=== PATIENT | male | born 1955 | race Caucasian/White ===

== ENCOUNTER 2019-12-27 15:26 | Outpatient (REF) | payer MEDICARE, MEDICAID, SELFPAY ==
--- NOTE | 2019-12-27 16:56 | XR_ITS ---
EXAMINATION: XR HAND, LEFT XR HAND, RIGHT CLINICAL INFORMATION: Gout COMPARISON: None TECHNIQUE: 3 views of each hand FINDINGS: Left hand: No fracture or dislocation. There are severe degenerative changes at the first carpometacarpal joint with flattening of the trapezium. There is joint space narrowing with prominent osteophyte formation. Radial subluxation of the first metacarpal in relation to the trapezium. Remaining joint spaces are maintained. Soft tissue swelling is seen at the second digit. No erosions. Right hand: No fracture or dislocation. Severe degenerative changes of the first carpometacarpal joint with joint space narrowing and prominent osteophytes. Mild radial subluxation of the first metacarpal in relation to the trapezium. Remaining joint spaces are maintained. Vascular calcifications. Soft tissue swelling in the hand which is greatest at the second digit. No erosions. IMPRESSION: Severe degenerative changes of both hands at the first carpometacarpal joints. Bilateral soft tissue swelling which is greatest at the second digit of both hands.
--- NOTE | 2019-12-27 16:56 | XR_ITS ---
EXAMINATION: XR KNEE, LEFT XR KNEE, RIGHT CLINICAL INFORMATION: Idiopathic chronic gout COMPARISON: None TECHNIQUE: 4 views of each knee FINDINGS: Left knee: No fracture or subluxation. There is mild narrowing of the patellofemoral compartment. Medial and lateral compartment joint spaces are maintained. Mild tricompartmental marginal osteophytes, greatest at the patellofemoral compartment with small joint effusion. Chondrocalcinosis noted. Scattered vascular calcification. Right knee: No fracture or subluxation. There is severe lateral compartment joint space narrowing. Tricompartmental marginal osteophytes are noted. Scattered vascular calcifications. Small joint effusion. IMPRESSION: Arthritic changes of both knees. In the left knee, degenerative changes are greatest at the patellofemoral compartment. In the right knee, arthritic changes are greatest at the lateral compartment. Small joint effusions.
[2019-12-27 18:02] LABS: MANUAL DIFF FLAG NO
[2019-12-27 18:12] LABS: Basophils Absolute Auto 0.1 X10*3/uL (0.0-0.2); Basophils Percent Auto 0.9 % (0-2); Eosinophils Absolute Auto 0.3 X10*3/uL (0.0-0.4); Eosinophils Percent Auto 4.4 % (0-4); Hematocrit 42.1 % (42-52); Hemoglobin 13.1 g/dl (14.0-18.0); Imm Gran Abs Auto 0.02 X10*3/uL (0.00-0.03); Imm Gran Pct Auto 0.3 % (0.0-0.4); Lymphocytes Absolute Auto 1.3 X10*3/uL (1.2-4.9); Lymphocytes Percent Auto 18.4 % (20-40); Mean Corpuscular HGB Conc 31.1 g/dl (31.0-36.0); Mean Corpuscular Volume 80.5 fL (80-98); Mean Platelet Volume 11.1 fL (9.4-12.4); Monocytes Absolute Auto 0.9 X10*3/uL (0.1-1.2); Monocytes Percent Auto 12.8 % (2-11); Neutrophils Absolute Auto 4.3 X10*3/uL (2.0-8.3); Neutrophils Percent Auto 63.2 % (45-73); Platelet Count 170 X10*3/uL (160-400); Red Blood Count 5.23 X10*6/uL (4.60-5.80); White Blood Count 6.8 X10*3/uL (4.8-10.8)
[2019-12-27 18:58] LABS: Alanine Aminotransferase 20 U/L (0-40); Albumin Level 4.1 g/dL (3.5-5.0); Alkaline Phosphatase 62 U/L (39-117); Anion Gap 15 (12-20); Aspartate Amino Transferase 22 U/L (5-37); Bilirubin Total 0.7 mg/dL (0.0-1.0); Blood Urea Nitrogen 25 mg/dL (9-16); Calcium 8.9 mg/dL (8.4-10.2); Carbon Dioxide 28 mmol/L (22-29); Chloride 104 mmol/L (96-108); Estimated Glomerular Filt Rate 57; Glucose Random 66 mg/dL (60-115); Rheumatoid Factor < 15.0 IU/mL (<15.0); Sodium 143 mmol/L (135-145); Total Protein 6.9 g/dL (6.5-8.0)
[2019-12-27 18:59] LABS: Uric Acid 11.1 mg/dL (3.4-7.0)
[2019-12-27 19:18] LABS: Erythrocyte Sedimentation Rate 19 MM/HR (0-15)
[2019-12-29 11:22] LABS: Cyclic Citrullinated Peptide <16 UNITS
== END 2019-12-27 15:27 | disposition home or self-care (01) ==
LOC: HO.LAB 15:26
PROVIDERS: PCP Internal Medicine; Visit Provider Student in an Organized Health Care Education/Training Program
DX: M1A.09X1 Idiopathic chronic gout, multiple sites, with tophus (tophi) (principal); M17.0 Bilateral primary osteoarthritis of knee
CPT/HCPCS: 36415; 73130; 73562; 80053; 84550; 85025; 85652; 86140; 86200; 86431; 99204

== ENCOUNTER → 2020-01-04 11:22 | Outpatient (BNVA) | payer MEDICARE, MEDICAID, SELFPAY | PROVIDERS: PCP Internal Medicine; Visit Provider Internal Medicine | DX: I48.20 Chronic atrial fibrillation, unspecified (principal); Z51.81 Encounter for therapeutic drug level monitoring; Z79.01 Long term (current) use of anticoagulants | CPT/HCPCS: 85610; 99211 ==

== ENCOUNTER → 2020-01-18 11:29 | Outpatient (BNVA) | payer MEDICARE, MEDICAID, SELFPAY | PROVIDERS: PCP Internal Medicine; Visit Provider Internal Medicine | DX: I48.20 Chronic atrial fibrillation, unspecified (principal); Z51.81 Encounter for therapeutic drug level monitoring; Z79.01 Long term (current) use of anticoagulants | CPT/HCPCS: 85610; 99211 ==

== ENCOUNTER → 2020-02-06 10:51 | Outpatient (BNVA) | payer MEDICARE, MEDICAID, SELFPAY | PROVIDERS: Visit Provider Orthopaedic Surgery | DX: M17.0 Bilateral primary osteoarthritis of knee (principal) | CPT/HCPCS: 99202 ==

== ENCOUNTER → 2020-02-15 10:59 | Outpatient (BNVA) | payer MEDICARE, MEDICAID, SELFPAY | PROVIDERS: PCP Internal Medicine; Visit Provider Internal Medicine | DX: I48.20 Chronic atrial fibrillation, unspecified (principal); Z51.81 Encounter for therapeutic drug level monitoring; Z79.01 Long term (current) use of anticoagulants | CPT/HCPCS: 85610; 99211 ==

== ENCOUNTER → 2020-02-20 11:23 | Outpatient (BNVA) | payer MEDICARE, MEDICAID, SELFPAY | PROVIDERS: PCP Internal Medicine; Visit Provider Internal Medicine | DX: J45.909 Unspecified asthma, uncomplicated (principal); G47.33 Obstructive sleep apnea (adult) (pediatric); G89.4 Chronic pain syndrome; E66.9 Obesity, unspecified; Z68.41 Body mass index [BMI] 40.0-44.9, adult; Z79.51 Long term (current) use of inhaled steroids | CPT/HCPCS: 99212 ==

== ENCOUNTER → 2020-02-29 10:53 | Outpatient (BNVA) | payer MEDICARE, MEDICAID, SELFPAY | PROVIDERS: PCP Internal Medicine; Visit Provider Internal Medicine | DX: Z79.01 Long term (current) use of anticoagulants (principal) | CPT/HCPCS: 85610; 99211 ==

== ENCOUNTER 2020-03-18 13:08 | Outpatient (RCR) | payer MEDICARE, MEDICAID, SELFPAY | END 2020-04-11 15:20 | disposition home or self-care (01) | LOC: HO.WCC 13:08 | PROVIDERS: Visit Provider Physician Assistant | DX: E11.622 Type 2 diabetes mellitus with other skin ulcer (principal); I87.331 Chronic venous hypertension (idiopathic) with ulcer and inflammation of right lower extremity; E11.51 Type 2 diabetes mellitus with diabetic peripheral angiopathy without gangrene; L97.812 Non-pressure chronic ulcer of other part of right lower leg with fat layer exposed; E11.40 Type 2 diabetes mellitus with diabetic neuropathy, unspecified; E11.65 Type 2 diabetes mellitus with hyperglycemia; I48.91 Unspecified atrial fibrillation; M54.9 Dorsalgia, unspecified; G89.29 Other chronic pain; I11.0 Hypertensive heart disease with heart failure; I50.9 Heart failure, unspecified; I25.2 Old myocardial infarction; E66.09 Other obesity due to excess calories; Z79.01 Long term (current) use of anticoagulants; Z79.84 Long term (current) use of oral hypoglycemic drugs; Z79.899 Other long term (current) drug therapy | CPT/HCPCS: 11042; 99212; 99214 ==

== ENCOUNTER → 2020-03-19 10:36 | Outpatient (BNVA) | payer MEDICARE, MEDICAID, SELFPAY | PROVIDERS: PCP Internal Medicine; Visit Provider Student in an Organized Health Care Education/Training Program | DX: Z13.89 Encounter for screening for other disorder (principal) | CPT/HCPCS: Q3014 ==

== ENCOUNTER → 2020-03-21 11:07 | Outpatient (BNVA) | payer MEDICARE, MEDICAID, SELFPAY | PROVIDERS: PCP Internal Medicine; Visit Provider Internal Medicine | DX: I48.20 Chronic atrial fibrillation, unspecified (principal); Z79.01 Long term (current) use of anticoagulants; Z51.81 Encounter for therapeutic drug level monitoring | CPT/HCPCS: 85610; 99211 ==

== ENCOUNTER → 2020-04-11 11:29 | Outpatient (BNVA) | payer MEDICARE, MEDICAID, SELFPAY | PROVIDERS: PCP Internal Medicine; Visit Provider Internal Medicine | DX: I48.20 Chronic atrial fibrillation, unspecified (principal); Z51.81 Encounter for therapeutic drug level monitoring; Z79.01 Long term (current) use of anticoagulants | CPT/HCPCS: 85610; 99211 ==

== ENCOUNTER → 2020-05-02 11:06 | Outpatient (BNVA) | payer MEDICARE, MEDICAID, SELFPAY | PROVIDERS: PCP Internal Medicine; Visit Provider Internal Medicine | DX: I48.20 Chronic atrial fibrillation, unspecified (principal); Z51.81 Encounter for therapeutic drug level monitoring; Z79.01 Long term (current) use of anticoagulants | CPT/HCPCS: 85610; 99211 ==

== ENCOUNTER → 2020-05-30 11:55 | Outpatient (BNVA) | payer MEDICARE, MEDICAID, SELFPAY | PROVIDERS: PCP Internal Medicine; Visit Provider Internal Medicine | DX: I48.20 Chronic atrial fibrillation, unspecified (principal); Z51.81 Encounter for therapeutic drug level monitoring; Z79.01 Long term (current) use of anticoagulants | CPT/HCPCS: 85610; 99211 ==

== ENCOUNTER → 2020-06-19 11:43 | Outpatient (BNVA) | payer MEDICARE, MEDICAID, SELFPAY | PROVIDERS: PCP Internal Medicine; Visit Provider Internal Medicine | DX: J45.909 Unspecified asthma, uncomplicated (principal); G47.33 Obstructive sleep apnea (adult) (pediatric); E66.9 Obesity, unspecified; Z68.41 Body mass index [BMI] 40.0-44.9, adult; Z79.899 Other long term (current) drug therapy; Z79.51 Long term (current) use of inhaled steroids | CPT/HCPCS: 99212 ==

== ENCOUNTER → 2020-06-27 11:33 | Outpatient (BNVA) | payer MEDICARE, MEDICAID, SELFPAY | PROVIDERS: PCP Internal Medicine; Visit Provider Internal Medicine | DX: I48.20 Chronic atrial fibrillation, unspecified (principal); Z79.01 Long term (current) use of anticoagulants; Z51.81 Encounter for therapeutic drug level monitoring | CPT/HCPCS: 85610; 99211 ==

== ENCOUNTER → 2020-07-18 11:32 | Outpatient (BNVA) | payer MEDICARE, MEDICAID, SELFPAY | PROVIDERS: PCP Internal Medicine; Visit Provider Internal Medicine | DX: I48.20 Chronic atrial fibrillation, unspecified (principal); Z79.01 Long term (current) use of anticoagulants; Z51.81 Encounter for therapeutic drug level monitoring | CPT/HCPCS: 85610; 99211 ==

== ENCOUNTER → 2020-08-06 13:55 | Outpatient (BNVA) | payer MEDICARE, MEDICAID, SELFPAY | PROVIDERS: PCP Internal Medicine; Referring Provider Internal Medicine; Visit Provider Internal Medicine Cardiovascular Disease | DX: Z45.018 Encounter for adjustment and management of other part of cardiac pacemaker (principal); M1A.00X0 Idiopathic chronic gout, unspecified site, without tophus (tophi); I50.32 Chronic diastolic (congestive) heart failure; I48.91 Unspecified atrial fibrillation | CPT/HCPCS: 99212 ==

== ENCOUNTER → 2020-08-08 11:35 | Outpatient (BNVA) | payer MEDICARE, MEDICAID, SELFPAY | PROVIDERS: PCP Internal Medicine; Visit Provider Internal Medicine | DX: I48.20 Chronic atrial fibrillation, unspecified (principal); Z51.81 Encounter for therapeutic drug level monitoring; Z79.01 Long term (current) use of anticoagulants | CPT/HCPCS: 85610; 99211 ==

== ENCOUNTER 2020-08-14 15:34 | Outpatient (REF) | payer MEDICARE, MEDICAID, SELFPAY ==
[2020-08-14 17:22] LABS: Alanine Aminotransferase 21 U/L (0-40); Albumin Level 4.2 g/dL (3.5-5.0); Alkaline Phosphatase 67 U/L (39-117); Anion Gap 15 (12-20); Aspartate Amino Transferase 18 U/L (5-37); Bilirubin Total 0.8 mg/dL (0.0-1.0); Blood Urea Nitrogen 25 mg/dL (9-16); Calcium 9.7 mg/dL (8.4-10.2); Carbon Dioxide 28 mmol/L (22-29); Chloride 102 mmol/L (96-108); Estimated Glomerular Filt Rate 57; Glucose Random 113 mg/dL (60-115); Potassium 3.8 mmol/L (3.3-5.1); Sodium 141 mmol/L (135-145); Total Protein 7.1 g/dL (6.5-8.0); Uric Acid 9.2 mg/dL (3.4-7.0)
== END 2020-08-14 15:35 | disposition home or self-care (01) ==
LOC: HO.LAB 15:34
PROVIDERS: PCP Internal Medicine; Visit Provider Student in an Organized Health Care Education/Training Program
DX: M1A.09X1 Idiopathic chronic gout, multiple sites, with tophus (tophi) (principal)
CPT/HCPCS: 36415; 80053; 84550; 99212

== ENCOUNTER 2020-08-15 12:44 | Outpatient (RCR) | payer MEDICARE, MEDICAID, SELFPAY | END 2020-09-04 13:23 | disposition home or self-care (01) | LOC: HO.WCC 12:44 | PROVIDERS: Visit Provider Surgery | DX: E11.622 Type 2 diabetes mellitus with other skin ulcer (principal); L97.812 Non-pressure chronic ulcer of other part of right lower leg with fat layer exposed; I87.331 Chronic venous hypertension (idiopathic) with ulcer and inflammation of right lower extremity; E11.65 Type 2 diabetes mellitus with hyperglycemia; E11.40 Type 2 diabetes mellitus with diabetic neuropathy, unspecified; E11.51 Type 2 diabetes mellitus with diabetic peripheral angiopathy without gangrene; I10 Essential (primary) hypertension; F12.90 Cannabis use, unspecified, uncomplicated; I48.91 Unspecified atrial fibrillation; I25.2 Old myocardial infarction; Z79.84 Long term (current) use of oral hypoglycemic drugs; Z79.01 Long term (current) use of anticoagulants; Z79.899 Other long term (current) drug therapy | CPT/HCPCS: 29581; 99212 ==

== ENCOUNTER → 2020-08-22 11:26 | Outpatient (BNVA) | payer MEDICARE, MEDICAID, SELFPAY | PROVIDERS: PCP Internal Medicine; Visit Provider Internal Medicine | DX: I48.20 Chronic atrial fibrillation, unspecified (principal); Z51.81 Encounter for therapeutic drug level monitoring; Z79.01 Long term (current) use of anticoagulants | CPT/HCPCS: 85610; 99211 ==

== ENCOUNTER → 2020-09-05 11:30 | Outpatient (BNVA) | payer MEDICARE, MEDICAID, SELFPAY | PROVIDERS: PCP Internal Medicine; Visit Provider Internal Medicine | DX: I48.20 Chronic atrial fibrillation, unspecified (principal); Z51.81 Encounter for therapeutic drug level monitoring; Z79.01 Long term (current) use of anticoagulants | CPT/HCPCS: 85610; 99211 ==

== ENCOUNTER → 2020-09-26 11:30 | Outpatient (BNVA) | payer MEDICARE, MEDICAID, SELFPAY | PROVIDERS: PCP Internal Medicine; Visit Provider Internal Medicine | DX: I48.20 Chronic atrial fibrillation, unspecified (principal); Z51.81 Encounter for therapeutic drug level monitoring; Z79.01 Long term (current) use of anticoagulants | CPT/HCPCS: 85610; 99211 ==

== ENCOUNTER → 2020-10-17 10:45 | Outpatient (BNVA) | payer MEDICARE, MEDICAID, SELFPAY | PROVIDERS: PCP Internal Medicine; Visit Provider Internal Medicine | DX: I48.20 Chronic atrial fibrillation, unspecified (principal); Z51.81 Encounter for therapeutic drug level monitoring; Z79.01 Long term (current) use of anticoagulants | CPT/HCPCS: 85610; 99211 ==

== ENCOUNTER 2020-11-07 11:25 | Outpatient (REF) | payer MEDICARE, MEDICAID, SELFPAY ==
[2020-11-07 14:01] LABS: Prostate Specific Antigen 1.05 ng/mL (<0.05-4.0)
== END 2020-11-07 11:26 | disposition home or self-care (01) ==
LOC: HO.LAB 11:25
PROVIDERS: Nurse Practitioner Family; PCP Internal Medicine; Visit Provider Internal Medicine
DX: I48.20 Chronic atrial fibrillation, unspecified (principal); Z51.81 Encounter for therapeutic drug level monitoring; Z79.01 Long term (current) use of anticoagulants; Z12.5 Encounter for screening for malignant neoplasm of prostate
CPT/HCPCS: 36415; 84153; 85610; 99211

== ENCOUNTER 2020-11-12 15:32 | Outpatient (REF) | payer MEDICARE, MEDICAID, SELFPAY ==
[2020-11-12 16:43] LABS: Alanine Aminotransferase 17 U/L (0-40); Albumin Level 4.1 g/dL (3.5-5.0); Alkaline Phosphatase 74 U/L (39-117); Anion Gap 16 (12-20); Aspartate Amino Transferase 22 U/L (5-37); Bilirubin Total 0.8 mg/dL (0.0-1.0); Blood Urea Nitrogen 17 mg/dL (9-16); Calcium 8.8 mg/dL (8.4-10.2); Carbon Dioxide 25 mmol/L (22-29); Chloride 103 mmol/L (96-108); Estimated Glomerular Filt Rate 59; Glucose Random 190 mg/dL (60-115); Potassium 3.9 mmol/L (3.3-5.1); Sodium 140 mmol/L (135-145)
[2020-11-12 17:03] LABS: Uric Acid 9.2 mg/dL (3.4-7.0)
== END 2020-11-12 15:33 | disposition home or self-care (01) ==
LOC: HO.LAB 15:32
PROVIDERS: PCP Internal Medicine; Visit Provider Student in an Organized Health Care Education/Training Program
DX: M1A.00X0 Idiopathic chronic gout, unspecified site, without tophus (tophi) (principal)
CPT/HCPCS: 36415; 80053; 84550

== ENCOUNTER → 2020-11-13 11:35 | Outpatient (BNVA) | payer MEDICARE, MEDICAID, SELFPAY | PROVIDERS: Visit Provider Student in an Organized Health Care Education/Training Program | CPT/HCPCS: Q3014 ==

== ENCOUNTER → 2020-11-28 11:32 | Outpatient (BNVA) | payer MEDICARE, MEDICAID, SELFPAY | PROVIDERS: PCP Internal Medicine; Visit Provider Internal Medicine | DX: I48.20 Chronic atrial fibrillation, unspecified (principal); Z51.81 Encounter for therapeutic drug level monitoring; Z79.01 Long term (current) use of anticoagulants | CPT/HCPCS: 85610; 99211 ==

== ENCOUNTER 2020-12-19 11:29 | Outpatient (REF) | payer MEDICARE, MEDICAID, SELFPAY ==
[2020-12-19 12:43] LABS: Estimated Average Glucose 154 mg/dL
[2020-12-19 13:09] LABS: Glucose Fasting 112 mg/dL (60-99)
[2020-12-19 13:19] LABS: Alanine Aminotransferase 18 U/L (0-40); Albumin Level 4.1 g/dL (3.5-5.0); Alkaline Phosphatase 68 U/L (39-117); Anion Gap 14 (12-20); Aspartate Amino Transferase 23 U/L (5-37); Bilirubin Total 0.2 mg/dL (0.0-1.0); Blood Urea Nitrogen 16 mg/dL (9-16); Calcium 8.8 mg/dL (8.4-10.2); Carbon Dioxide 26 mmol/L (22-29); Chloride 106 mmol/L (96-108); Cholesterol 277 mg/dL; Estimated Glomerular Filt Rate 59; Glucose Random 113 mg/dL (60-115); HDL Cholesterol 32 mg/dL; LDL Cholesterol Calculated 191 mg/dl; Potassium 4.2 mmol/L (3.3-5.1); Sodium 142 mmol/L (135-145); Triglycerides 274 mg/dL
[2020-12-19 13:39] LABS: Vitamin D 25-OH Total 24.1 ng/mL (>30)
[2020-12-19 14:10] LABS: Uric Acid 9.4 mg/dL (3.4-7.0)
== END 2020-12-19 11:30 | disposition home or self-care (01) ==
LOC: HO.LAB 11:29
PROVIDERS: Student in an Organized Health Care Education/Training Program; Absent Provider Nurse Practitioner Family; PCP Internal Medicine; Visit Provider Internal Medicine
DX: E66.9 Obesity, unspecified (principal); R53.82 Chronic fatigue, unspecified; E78.00 Pure hypercholesterolemia, unspecified; E11.9 Type 2 diabetes mellitus without complications; M1A.09X1 Idiopathic chronic gout, multiple sites, with tophus (tophi); J45.909 Unspecified asthma, uncomplicated; G47.33 Obstructive sleep apnea (adult) (pediatric); Z79.899 Other long term (current) drug therapy; Z99.89 Dependence on other enabling machines and devices
CPT/HCPCS: 36415; 80053; 80061; 82043; 82306; 82947; 83036; 84550; 99212

== ENCOUNTER → 2020-12-26 11:22 | Outpatient (BNVA) | payer MEDICARE, MEDICAID, SELFPAY | PROVIDERS: PCP Internal Medicine; Visit Provider Internal Medicine | DX: I48.20 Chronic atrial fibrillation, unspecified (principal); Z51.81 Encounter for therapeutic drug level monitoring; Z79.01 Long term (current) use of anticoagulants | CPT/HCPCS: 85610; 99211 ==

== ENCOUNTER → 2021-01-13 13:45 | Outpatient (REF) | payer MEDICARE, MEDICAID, SELFPAY ==
--- NOTE | 2021-01-13 13:49 | CA_ITS ---
Transthoracic Echocardiogram Patient (Last, First, Middle): Tony Brian S Gender: Male Date of : 1955 Age: 65 Procedure Date: 01/13/2021 Procedure Type: Transthoracic Echocardiogram Location: OP Height: 177.8 cm Weight: 131.54 kg BSA: 2.44 m2 Heart Rate: bpm BP: 130 / 90 mmHg Hand Drawer In Helper: ALEX Referring MD: Benjamin Downing MD Turf Manager: Benjamin Dwoning MD Symptoms: I50.32 - Chronic diastolic (congestive) heart failure Study Quality: Fair/Contrast ECG Rhythm: Atrial Fibrillation Conclusions: - 1. Low normal LV systolic function with mild LVH with LVEF of 50-55% 2. Severely dilated left atrium 3. [id number] mitral regurgitation 4. Mildly elevated right ventricular systolic pressure 5. No gross pericardial effusion Findings Procedure Information Contrast agent, definity, is being given per protocol without apparent complications. Left Ventricle Normal left ventricular cavity size. There is mildly increased left ventricular wall thickness. The left ventricular systolic function is low normal. The visually estimated ejection fraction is between 50-55%. Diastolic function is indeterminate on the basis of available data. Right Ventricle Mildly increased right ventricular cavity size. There is mildly decreased right ventricular systolic function. There is a pacemaker wire seen in the right ventricle. Atria The left atrium is severely dilated. Interatrial shunt cannot be excluded. The right atrium is mildly dilated. Aortic Valve The aortic valve structure and function is likely normal. There is no aortic valve stenosis. There is no aortic valve regurgitation. Mitral Valve There is mild anterior mitral leaflet thickening. There is mild mitral annular calcification. There is mild to moderate mitral valve regurgitation. There is no mitral valve stenosis. Pulmonic Valve The pulmonic valve was not well visualized. Tricuspid Valve Likely normal tricuspid valve structure and function. There is mild tricuspid valve regurgitation. The right ventricular systolic pressure is 42 mmHg. Mild pulmonary hypertension is present. Great Vessels All visible segments of the aorta are normal in size. The pulmonary artery was not well visualized. Venous The inferior vena cava was not well visualized. Pericardium/Pleural There is no evidence of pericardial effusion. Prior Study Comparison No significant change compared to prior study dated: 05/29/2019. Measurements 2D Linear Measurements IVSd: 1.31 0.6-0.9/0.6-1.0 cm LVIDd: 4.66 3.9-5.3/4.2-5.9 cm LVIDd Index: 1.91 2.4-3.2/2.2-3.1 cm/m2 LVIDs: 3.66 2.0-3.6 cm LVPWd: 1.03 0.7-1.1 cm Ao Root: 3.30 2.1-3.5 cm LA Diam: 5.70 2.7-3.8/3.0-4.0 cm LAIDs Index: 2.34 1.5-2.3 cm/m2 LV Mass: 251.48 67-162/88-224 g LV Mass Index: 103.06 43-95/49-115 g/m2 LVOT Diam: 2.10 3.0+(-)1.3 cm 2D Systolic Function EF 4C: 49.00 >55% EF 2C: 45.90 >55% EF BiP: 46.40 >55% Aortic Valve AoV Pk James: 1.31 AoV Mn James: 0.93 AoV VTI: 0.27 AoV Pk Grad: 7.00 Aov Mn Grad: 4.00 AMADOR Cont.VTI: 1.81 LVOT LVOT Pk James: 0.67 LVOT Mn James: 0.49 LVOT VTI: 0.14 LVOT Pk Grad: 2.00 LVOT Mn Grad: 1.00 LVOT Diam: 2.10 LVOT Area: 3.46 Right Ventricle TAPSE (mm): 1.46 Tricuspid Valve TR Pk James: 3.12 TR Pk Grad: 39.00 RA Press: 3.00 RVSP: 42.00 Great Vessels Aorta Ao Root-2D: 3.30 2.0-3.7 cm Ao Asc: 3.40 2.1-3.4 cm Ao Arch: 2.90 Updated in Other Vendor System with Status of Final Benjamin Downing MD electronically signed on 01/14/2021 3:59:14 PM with status of Final
== END ==
LOC: HO.CARD 13:45
PROVIDERS: Visit Provider Internal Medicine Cardiovascular Disease
DX: I50.32 Chronic diastolic (congestive) heart failure (principal)
CPT/HCPCS: 93306; Q9957

== ENCOUNTER 2021-01-20 10:37 | Outpatient (REF) | payer MEDICARE, MEDICAID, SELFPAY ==
[2021-01-20 12:52] LABS: Alanine Aminotransferase 17 U/L (0-40); Albumin Level 3.9 g/dL (3.5-5.0); Alkaline Phosphatase 65 U/L (39-117); Anion Gap 17 (12-20); Aspartate Amino Transferase 19 U/L (5-37); Bilirubin Total 1.1 mg/dL (0.0-1.0); Blood Urea Nitrogen 21 mg/dL (9-16); Calcium 8.7 mg/dL (8.4-10.2); Carbon Dioxide 26 mmol/L (22-29); Chloride 104 mmol/L (96-108); Estimated Glomerular Filt Rate 59; Glucose Random 129 mg/dL (60-115); Potassium 3.5 mmol/L (3.3-5.1); Sodium 143 mmol/L (135-145); Total Protein 6.9 g/dL (6.5-8.0)
== END 2021-01-20 10:38 | disposition home or self-care (01) ==
LOC: HO.LAB 10:37
PROVIDERS: PCP Internal Medicine; Visit Provider Nurse Practitioner Family
DX: M1A.09X1 Idiopathic chronic gout, multiple sites, with tophus (tophi) (principal); Z79.899 Other long term (current) drug therapy
CPT/HCPCS: 36415; 80053; 84550; 99212

== ENCOUNTER → 2021-01-30 11:05 | Outpatient (BNVA) | payer MEDICARE, MEDICAID, SELFPAY | PROVIDERS: PCP Internal Medicine; Visit Provider Internal Medicine | DX: I48.20 Chronic atrial fibrillation, unspecified (principal); Z51.81 Encounter for therapeutic drug level monitoring; Z79.01 Long term (current) use of anticoagulants | CPT/HCPCS: 85610; 99211 ==

== ENCOUNTER → 2021-02-04 12:43 | Outpatient (BNVA) | payer MEDICARE, MEDICAID, SELFPAY | PROVIDERS: PCP Internal Medicine; Referring Provider Internal Medicine; Visit Provider Internal Medicine Cardiovascular Disease | DX: Z45.018 Encounter for adjustment and management of other part of cardiac pacemaker (principal); I50.32 Chronic diastolic (congestive) heart failure; I48.91 Unspecified atrial fibrillation | CPT/HCPCS: 93005; 99212 ==

== ENCOUNTER → 2021-02-14 11:43 | Outpatient (BNVA) | payer MEDICARE, MEDICAID, SELFPAY | PROVIDERS: PCP Internal Medicine; Visit Provider Internal Medicine | DX: I48.20 Chronic atrial fibrillation, unspecified (principal); Z51.81 Encounter for therapeutic drug level monitoring; Z79.01 Long term (current) use of anticoagulants | CPT/HCPCS: 85610; 99211 ==

== ENCOUNTER → 2021-02-27 11:24 | Outpatient (BNVA) | payer MEDICARE, MEDICAID, SELFPAY | PROVIDERS: PCP Internal Medicine; Visit Provider Internal Medicine | DX: I48.20 Chronic atrial fibrillation, unspecified (principal); Z51.81 Encounter for therapeutic drug level monitoring; Z79.01 Long term (current) use of anticoagulants | CPT/HCPCS: 85610; 99211 ==

== ENCOUNTER → 2021-03-20 11:27 | Outpatient (BNVA) | payer MEDICARE, MEDICAID, SELFPAY | PROVIDERS: PCP Internal Medicine; Visit Provider Internal Medicine | DX: I48.20 Chronic atrial fibrillation, unspecified (principal); Z51.81 Encounter for therapeutic drug level monitoring; Z79.01 Long term (current) use of anticoagulants | CPT/HCPCS: 85610; 99211 ==

== ENCOUNTER 2021-04-09 11:09 | Outpatient (REF) | payer MEDICARE, MEDICAID, SELFPAY ==
[2021-04-09 13:07] LABS: Alanine Aminotransferase 14 U/L (0-40); Albumin Level 3.9 g/dL (3.5-5.0); Alkaline Phosphatase 59 U/L (39-117); Anion Gap 14 (12-20); Aspartate Amino Transferase 19 U/L (5-37); Bilirubin Total 0.7 mg/dL (0.0-1.0); Blood Urea Nitrogen 18 mg/dL (9-16); Carbon Dioxide 27 mmol/L (22-29); Chloride 103 mmol/L (96-108); Estimated Glomerular Filt Rate 55; Glucose Random 221 mg/dL (60-115); Potassium 3.7 mmol/L (3.3-5.1); Sodium 140 mmol/L (135-145); Total Protein 6.8 g/dL (6.5-8.0)
== END 2021-04-09 11:10 | disposition home or self-care (01) ==
LOC: HO.LAB 11:09
PROVIDERS: PCP Internal Medicine; Visit Provider Nurse Practitioner Family
DX: I48.20 Chronic atrial fibrillation, unspecified (principal); M1A.09X1 Idiopathic chronic gout, multiple sites, with tophus (tophi); Z51.81 Encounter for therapeutic drug level monitoring; Z79.01 Long term (current) use of anticoagulants
CPT/HCPCS: 36415; 80053; 84550; 85610; 99211; 99212

== ENCOUNTER 2021-05-01 11:10 | Outpatient (REF) | payer MEDICARE, MEDICAID, SELFPAY ==
[2021-05-01 12:25] LABS: Alanine Aminotransferase 17 U/L (0-40); Albumin Level 3.8 g/dL (3.5-5.0); Alkaline Phosphatase 68 U/L (39-117); Anion Gap 14 (12-20); Aspartate Amino Transferase 19 U/L (5-37); Bilirubin Total 0.7 mg/dL (0.0-1.0); Blood Urea Nitrogen 14 mg/dL (9-16); Calcium 8.8 mg/dL (8.4-10.2); Carbon Dioxide 27 mmol/L (22-29); Chloride 102 mmol/L (96-108); Estimated Glomerular Filt Rate 58; Glucose Random 144 mg/dL (60-115); Potassium 3.7 mmol/L (3.3-5.1); Sodium 139 mmol/L (135-145); Total Protein 6.6 g/dL (6.5-8.0); Uric Acid 7.5 mg/dL (3.4-7.0)
== END 2021-05-01 11:11 | disposition home or self-care (01) ==
LOC: HO.LAB 11:10
PROVIDERS: PCP Internal Medicine; Visit Provider Nurse Practitioner Family
DX: I48.20 Chronic atrial fibrillation, unspecified (principal); M1A.09X1 Idiopathic chronic gout, multiple sites, with tophus (tophi); Z51.81 Encounter for therapeutic drug level monitoring; Z79.01 Long term (current) use of anticoagulants
CPT/HCPCS: 36415; 80053; 84550; 85610; 99211

== ENCOUNTER 2021-05-06 14:01 | Outpatient (RCR) | payer MEDICARE, MEDICAID, SELFPAY | END 2021-07-16 10:17 | disposition home or self-care (01) | LOC: HO.WCC 14:01 | PROVIDERS: PCP Internal Medicine; Visit Provider Physician Assistant | DX: E11.622 Type 2 diabetes mellitus with other skin ulcer (principal); I87.312 Chronic venous hypertension (idiopathic) with ulcer of left lower extremity; E11.51 Type 2 diabetes mellitus with diabetic peripheral angiopathy without gangrene; L97.822 Non-pressure chronic ulcer of other part of left lower leg with fat layer exposed; E11.40 Type 2 diabetes mellitus with diabetic neuropathy, unspecified; Q82.0 Hereditary lymphedema; I11.0 Hypertensive heart disease with heart failure; I50.9 Heart failure, unspecified; I25.2 Old myocardial infarction; F12.90 Cannabis use, unspecified, uncomplicated; Z79.84 Long term (current) use of oral hypoglycemic drugs; Z95.0 Presence of cardiac pacemaker | CPT/HCPCS: 11042; 29581; 97602; 99212; 99214; 99215 ==

== ENCOUNTER → 2021-05-22 11:47 | Outpatient (BNVA) | payer MEDICARE, MEDICAID, SELFPAY | PROVIDERS: PCP Internal Medicine; Visit Provider Internal Medicine | DX: I48.20 Chronic atrial fibrillation, unspecified (principal); Z51.81 Encounter for therapeutic drug level monitoring; Z79.01 Long term (current) use of anticoagulants | CPT/HCPCS: 85610; 99211 ==

== ENCOUNTER 2021-05-22 16:05 | Outpatient (REF) | payer MEDICARE, MEDICAID, SELFPAY ==
--- NOTE | ~2021-05-22 | US_ITS ---
EXAMINATION: US VENOUS ULTRASOUND WITH DOPPLER LOWER EXTREMITY, RIGHT CLINICAL INFORMATION: Right leg inflammation and tenderness COMPARISON: None TECHNIQUE: Ultrasound of the deep veins is performed from the hip to the calf with compression sonography and color and pulse Doppler assessment. Spectral analysis with color-flow imaging is performed. FINDINGS: There is normal venous compression and respiratory variation and augmented flow. The visualized common femoral vein, superficial femoral vein, profunda femoral vein, and the popliteal vein shows no evidence of deep venous thrombosis. The posterior tibial and peroneal veins in the distal lower leg are patent. The posterior tibial and peroneal veins at the trifurcation near the knee are not well visualized. No calf DVT is appreciated. There is significant edema of the calf. There is no popliteal fossa cyst. US/US venous duplex LE RT IMPRESSION: No DVT demonstrated in the right lower extremity. Calf veins not optimally visualized.
== END 2021-05-22 16:06 | disposition home or self-care (01) ==
LOC: HO.US 16:05
PROVIDERS: PCP Internal Medicine; Visit Provider Colon & Rectal Surgery
DX: L97.812 Non-pressure chronic ulcer of other part of right lower leg with fat layer exposed (principal); L97.822 Non-pressure chronic ulcer of other part of left lower leg with fat layer exposed; Q82.0 Hereditary lymphedema
CPT/HCPCS: 93971

== ENCOUNTER → 2021-06-04 11:23 | Outpatient (BNVA) | payer MEDICARE, MEDICAID, SELFPAY | PROVIDERS: PCP Internal Medicine; Visit Provider Nurse Practitioner Family | DX: M1A.09X1 Idiopathic chronic gout, multiple sites, with tophus (tophi) (principal) | CPT/HCPCS: 99212 ==

== ENCOUNTER → 2021-06-19 11:38 | Outpatient (BNVA) | payer MEDICARE, MEDICAID, SELFPAY | PROVIDERS: PCP Internal Medicine; Visit Provider Internal Medicine | DX: I48.20 Chronic atrial fibrillation, unspecified (principal); G47.33 Obstructive sleep apnea (adult) (pediatric); J45.909 Unspecified asthma, uncomplicated; R60.0 Localized edema; E66.9 Obesity, unspecified; Z79.899 Other long term (current) drug therapy; Z51.81 Encounter for therapeutic drug level monitoring; Z79.01 Long term (current) use of anticoagulants | CPT/HCPCS: 85610; 99211; 99212 ==

== ENCOUNTER → 2021-07-15 11:02 | Outpatient (BNVA) | payer MEDICARE, MEDICAID, SELFPAY | PROVIDERS: PCP Internal Medicine; Visit Provider Internal Medicine | DX: I48.20 Chronic atrial fibrillation, unspecified (principal); Z79.01 Long term (current) use of anticoagulants; Z51.81 Encounter for therapeutic drug level monitoring | CPT/HCPCS: 85610; 99211 ==

== ENCOUNTER → 2021-07-31 12:38 | Outpatient (BNVA) | payer MEDICARE, MEDICAID, SELFPAY | PROVIDERS: PCP Internal Medicine; Referring Provider Internal Medicine; Visit Provider Internal Medicine Cardiovascular Disease | DX: Z45.018 Encounter for adjustment and management of other part of cardiac pacemaker (principal); I50.32 Chronic diastolic (congestive) heart failure; I48.91 Unspecified atrial fibrillation | CPT/HCPCS: 99212 ==

== ENCOUNTER 2021-08-04 09:34 | Outpatient (REF) | payer MEDICARE, MEDICAID, SELFPAY ==
[2021-08-04 12:30] LABS: Alanine Aminotransferase 20 U/L (0-40); Albumin Level 3.8 g/dL (3.5-5.0); Alkaline Phosphatase 55 U/L (39-117); Anion Gap 16 (12-20); Aspartate Amino Transferase 21 U/L (5-37); Bilirubin Total 0.7 mg/dL (0.0-1.0); Blood Urea Nitrogen 22 mg/dL (9-16); Calcium 9.4 mg/dL (8.4-10.2); Carbon Dioxide 26 mmol/L (22-29); Chloride 100 mmol/L (96-108); Estimated Glomerular Filt Rate 56; Glucose Random 237 mg/dL (60-115); Potassium 4.3 mmol/L (3.3-5.1); Sodium 138 mmol/L (135-145); Total Protein 6.8 g/dL (6.5-8.0); Uric Acid 7.1 mg/dL (3.4-7.0)
== END 2021-08-04 09:35 | disposition home or self-care (01) ==
LOC: HO.LAB 09:34
PROVIDERS: PCP Internal Medicine; Visit Provider Nurse Practitioner Family
DX: M1A.09X1 Idiopathic chronic gout, multiple sites, with tophus (tophi) (principal)
CPT/HCPCS: 36415; 80053; 84550; 99212

== ENCOUNTER → 2021-08-14 11:35 | Outpatient (BNVA) | payer MEDICARE, MEDICAID, SELFPAY | PROVIDERS: PCP Internal Medicine; Visit Provider Internal Medicine | DX: I48.20 Chronic atrial fibrillation, unspecified (principal); G47.33 Obstructive sleep apnea (adult) (pediatric); E66.9 Obesity, unspecified; J44.9 Chronic obstructive pulmonary disease, unspecified; Z79.01 Long term (current) use of anticoagulants; Z51.81 Encounter for therapeutic drug level monitoring | CPT/HCPCS: 85610; 99211; 99212 ==

== ENCOUNTER → 2021-08-21 10:59 | Outpatient (BNVA) | payer MEDICARE, MEDICAID, SELFPAY | PROVIDERS: PCP Internal Medicine; Visit Provider Internal Medicine | DX: I48.20 Chronic atrial fibrillation, unspecified (principal); Z79.01 Long term (current) use of anticoagulants; Z51.81 Encounter for therapeutic drug level monitoring | CPT/HCPCS: 85610; 99211 ==

== ENCOUNTER 2021-08-25 15:30 | Emergency (ER) | payer MEDICARE, MEDICAID, SELFPAY ==
--- NOTE | ~2021-08-25 | XR_ITS ---
EXAMINATION: XR CHEST CLINICAL INFORMATION: Shortness of breath COMPARISON: Chest x-ray 05/03/2017 TECHNIQUE: Frontal view of the chest was obtained. FINDINGS: Minimal elevation or eventration right hemidiaphragm, unchanged. No airspace consolidation. No pleural effusion or pneumothorax. Cardiomediastinal silhouette is within normal limits. No evidence of pulmonary edema. Dual-chamber pacer with lead tips terminating in the right atrium and 2-lead tips terminating in the right ventricle. No acute osseous injury. XR/XR chest 1V IMPRESSION: No acute pulmonary process.
[2021-08-25 15:50] VITALS: BP 149/78; PULSE 89; RESP 18; TEMP 36.4; O2SAT 98; BMI 42.0
--- NOTE | 2021-08-25 15:58 | ECG_ITS ---
Test Reason : SOB/SWELLING Blood Pressure : / mmHG Vent. Rate : 088 BPM Atrial Rate : 000 BPM P-R Int : 000 ms QRS Dur : 092 ms QT Int : 398 ms P-R-T Axes : 000 033 044 degrees QTc Int : 481 ms /' Atrial fibrillation Prolonged QT Abnormal ECG When compared with ECG of 03-MAY-2017 20:56, T wave inversion no longer evident in Inferior leads Referred By: Generic ED Physician Electronically Signed By:Andrew Lemus
[2021-08-25 16:43] LABS: MANUAL DIFF FLAG NO
[2021-08-25 16:43] LABS: Glucose, Whole Blood 122 mg/dL (60-115)
[2021-08-25 16:46] LABS: Basophils Absolute Auto 0.1 X10*3/uL (0.0-0.2); Basophils Percent Auto 0.8 % (0-2); Eosinophils Absolute Auto 0.2 X10*3/uL (0.0-0.4); Eosinophils Percent Auto 2.4 % (0-4); Hematocrit 37.8 % (42.0-52.0); Hemoglobin 11.9 g/dl (14.0-18.0); Imm Gran Abs Auto 0.03 X10*3/uL (0.00-0.03); Imm Gran Pct Auto 0.4 % (0.0-0.4); Lymphocytes Absolute Auto 1.1 X10*3/uL (1.2-4.9); Lymphocytes Percent Auto 12.9 % (20-40); Mean Corpuscular HGB Conc 31.5 g/dl (31.0-36.0); Mean Corpuscular Hemoglobin 25.9 pg (27.0-33.0); Mean Corpuscular Volume 82.2 fL (80.0-98.0); Mean Platelet Volume 11.3 fL (9.4-12.4); Monocytes Percent Auto 12.2 % (2-11); Neutrophils Percent Auto 71.3 % (45-73); Platelet Count 211 X10*3/uL (160-400); White Blood Count 8.4 X10*3/uL (4.8-10.8)
[2021-08-25 17:00] LABS: Anion Gap 15 (12-20); Blood Urea Nitrogen 27 mg/dL (9-16); Calcium 8.7 mg/dL (8.4-10.2); Carbon Dioxide 24 mmol/L (22-29); Chloride 105 mmol/L (96-108); Creatinine Clr Calc Pharmacy 82.6; Estimated Glomerular Filt Rate > 60; Glucose Random 132 mg/dL (60-115); Potassium 3.6 mmol/L (3.3-5.1); Sodium 140 mmol/L (135-145)
[2021-08-25 17:08] LABS: Troponin-I High Sensitivity 20.2 ng/L (<3.5-35.0)
[2021-08-25 22:00] VITALS: BP 168/91; PULSE 90; RESP 24; O2SAT 99
--- NOTE | 2021-08-25 22:11 | ED_ITS ---
HPI - General Adult General Chief complaint: General Medical Stated complaint: gout in L arm Time Seen by Provider: 08/25/21 22:11 Source: patient Mode of arrival: ambulatory Limitations: no limitations History of Present Illness HPI narrative: Patient's history of gouty arthritis been having pain in the left wrist hand and elbow for last 2 weeks not getting better taking steroids off and on also taking colchicine for last 4 days also complaining of shortness of breath increased blood sugar weakness body aches. Related Data Home Medications Medication Instructions Recorded Confirmed albuterol sulfate 90 mcg/actuation 2 puff inhalation Q6H PRN 12/27/19 08/21/21 aerosol inhaler blood sugar diagnostic #10 ea 02/20/20 08/21/21 omeprazole 20 mg capsule,delayed 20 mg PO DAILY PRN 02/20/20 08/21/21 release fluticasone furoate [Arnuity inhalation 07/15/21 08/21/21 Ellipta] glipizide 10 mg tablet, extended 10 mg PO DAILY 08/04/21 08/21/21 release 24 hr prednisone 20 mg tablet 20 mg PO DAILY 08/21/21 08/21/21 Previous Rx's Medication Instructions Recorded miscellaneous medical supply See Rx Instructions miscellaneous 07/25/20 .COMPLEX #1 ea miscellaneous medical supply See Rx Instructions miscellaneous 11/01/20 .COMPLEX #1 ea melatonin 3 mg tablet 3 mg PO BEDTIME PRN sleep #90 tabs 12/04/20 metformin 1,000 mg tablet 1,000 mg PO BID #60 tabs 02/22/21 gabapentin 600 mg tablet 600 mg PO BEDTIME #90 tabs 03/28/21 furosemide 40 mg tablet 40 mg PO BID edema #90 tabs 04/07/21 diltiazem HCl 180 mg 180 mg PO DAILY #90 caps 05/26/21 capsule,extended release 24 hr (Cardizem CD) metoprolol tartrate 100 mg tablet 200 mg PO Q12H #120 tabs 07/14/21 levothyroxine 75 mcg tablet 75 mcg PO DAILY #90 caps 07/16/21 allopurinol 100 mg tablet 200 mg PO DAILY #60 tabs 08/05/21 allopurinol 300 mg tablet 300 mg PO DAILY #30 tabs 08/05/21 oxycodone 5 mg tablet 5 mg PO BID pain 7 days #14 tabs 08/08/21 fluticasone furoate 200 1 inh inhalation DAILY Asthma/copd 08/14/21 mcg-vilanterol 25 mcg/dose 30 days #60 ea inhalation powder (Breo Ellipta) warfarin 5 mg tablet 5 mg PO DAILY #90 tabs 08/18/21 warfarin 7.5 mg tablet 7.5 mg PO DAILY #90 tabs 08/21/21 colchicine 0.6 mg tablet 0.6 mg PO DAILY #20 tabs 08/26/21 prednisone 20 mg tablet 40 mg PO DAILY #10 tabs 08/26/21 Allergies Allergy/AdvReac Type Severity Reaction Status Date / Time tramadol Allergy Severe DIFF Verified 08/25/21 15:50 BREATHING RASH amiodarone Allergy Unknown ELEVATED Verified 08/25/21 15:50 LFTs, BLURRY VISION, SOB atorvastatin Allergy Unknown MYALGIA Verified 08/25/21 15:50 Review of Systems Review of Systems: Yes all other systems are reviewed and are negative PMFSH Past Medical History Medical History Lyme disease Surgical History History of colonoscopy History of total knee replacement Hx of left knee surgery Family History Family History Mother Esophagus cancer Father Esophagus cancer Brother Pancreatic cancer Sister Breast cancer Sister A-fib Social History Social History Household Members: None Housing: Apartment Alcohol intake: never Patient Tobacco Use Status: Never used Tobacco e-Cigarette/Vaping Use: Never Used Second Hand Smoke Exposure: No Use of substances other than those prescribed or required for medical reasons: No Advance Directives: No Advance Directives Information Provided: No service: No Current occupational status: disabled Current occupation: Right Handed Cognitive needs: Yes (cane) Hearing needs: No Vision needs: No Physical Exam ED Vital Signs: Vital Signs - 24 hr 08/25/21 15:50 08/25/21 22:00 08/25/21 23:26 Temperature 97.5 F 97.8 F Pulse Rate 89 90 69 Respiratory Rate 18 24 H 17 Blood Pressure 149/78 H 168/91 H 124/57 L Pulse Oximetry 98 99 97 Oxygen Delivery Method Room Air Room Air Room Air BMI result Body Mass Index 42.0 Appearance: Alert. Oriented X3. No acute distress. Eyes: PERRLA, No Nystagmus ENT: Pharynx normal. Oral Mucosa moist Neck: Normal inspection. Neck supple. CVS: Normal heart rate and rhythm. Pulses normal. Respiratory: No respiratory distress. Equal air entry bilateral, no wheezing/rales/rhonchi Abdomen: Soft and nontender. Bowel sounds are present, no mass palpable, no CVA tenderness Skin: Skin warm and dry. Normal skin color. Normal skin turgor. Extremities: Pedal edema bilateral LE, diffuse tenderness in the left wrist joint left elbow with swelling of the dorsum of the hand good range of movement Neuro: Oriented X 3. No motor deficit. No sensory deficit.No cerebellar signs , cranial nerves II-XII intact Medical Decision Making MDM Narrative Medical decision making narrative: Patient got arthritis improved after Decadron and Toradol will discharge patient home on prednisone and colchicine Lab Data Lab results reviewed: Yes I reviewed the patient's lab results. Result diagrams: 08/25/21 16:33 08/25/21 16:33 Labs: Lab Results 08/25/21 08/25/21 08/25/21 Range/Units 16:33 16:33 16:33 WBC 8.4 (4.8-10.8) X10*3/uL RBC 4.60 (4.60-5.80) X10*6/uL Hgb 11.9 L (14.0-18.0) g/dl Hct 37.8 L (42.0-52.0) % MCV 82.2 (80.0-98.0) fL MCH 25.9 L (27.0-33.0) pg MCHC 31.5 (31.0-36.0) g/dl RDW 17.0 H (11.0-16.0) % Plt Count 211 (160-400) X10*3/uL MPV 11.3 (9.4-12.4) fL Immature Gran % (Auto) 0.4 (0.0-0.4) % Neut % (Auto) 71.3 (45-73) % Lymph % (Auto) 12.9 L (20-40) % [place] % (Auto) 12.2 H (2-11) % Eos % (Auto) 2.4 (0-4) % Baso % (Auto) 0.8 (0-2) % Lymph # (Auto) 1.1 L (1.2-4.9) X10*3/uL [place] # (Auto) 1.0 (0.1-1.2) X10*3/uL Eos # (Auto) 0.2 (0.0-0.4) X10*3/uL Baso # (Auto) 0.1 (0.0-0.2) X10*3/uL Abs Immat Gran (auto) 0.03 (0.00-0.03) X10*3/uL Absolute Neuts (auto) 6.0 (2.0-8.3) x10*3/uL Absolute Nucleated RBC 0.000 (0.0-0.012) X10*3/uL Nucleated RBC % (auto) 0.0 (0.0-0.2) /100WBC ESR (0-15) MM/HR Sodium 140 (135-145) mmol/L Potassium 3.6 (3.3-5.1) mmol/L Chloride 105 (96-108) mmol/L Carbon Dioxide 24 (22-29) mmol/L Anion Gap 15 (12-20) BUN 27 H (9-16) mg/dL Creatinine 1.19 (0.5-1.4) mg/dL Estim Creat Clear Calc 82.6 Estimated GFR > 60 POC Glucose (60-115) mg/dL Random Glucose 132 H D (60-115) mg/dL Uric Acid 6.1 (3.4-7.0) mg/dL Calcium 8.7 D (8.4-10.2) mg/dL Troponin I High Sens 20.2 (<3.5-35.0) ng/L C-Reactive Protein 5.49 H (< or = 0.50) mg/dL 08/25/21 08/25/21 08/25/21 Range/Units 16:33 16:37 22:37 WBC (4.8-10.8) X10*3/uL RBC (4.60-5.80) X10*6/uL Hgb (14.0-18.0) g/dl Hct (42.0-52.0) % MCV (80.0-98.0) fL MCH (27.0-33.0) pg MCHC (31.0-36.0) g/dl RDW (11.0-16.0) % Plt Count (160-400) X10*3/uL MPV (9.4-12.4) fL Immature Gran % (Auto) (0.0-0.4) % Neut % (Auto) (45-73) % Lymph % (Auto) (20-40) % [place] % (Auto) (2-11) % Eos % (Auto) (0-4) % Baso % (Auto) (0-2) % Lymph # (Auto) (1.2-4.9) X10*3/uL [place] # (Auto) (0.1-1.2) X10*3/uL Eos # (Auto) (0.0-0.4) X10*3/uL Baso # (Auto) (0.0-0.2) X10*3/uL Abs Immat Gran (auto) (0.00-0.03) X10*3/uL Absolute Neuts (auto) (2.0-8.3) x10*3/uL Absolute Nucleated RBC (0.0-0.012) X10*3/uL Nucleated RBC % (auto) (0.0-0.2) /100WBC ESR 44 H (0-15) MM/HR Sodium (135-145) mmol/L Potassium (3.3-5.1) mmol/L Chloride (96-108) mmol/L Carbon Dioxide (22-29) mmol/L Anion Gap (12-20) BUN (9-16) mg/dL Creatinine (0.5-1.4) mg/dL Estim Creat Clear Calc Estimated GFR POC Glucose 122 H 182 H (60-115) mg/dL Random Glucose (60-115) mg/dL Uric Acid (3.4-7.0) mg/dL Calcium (8.4-10.2) mg/dL Troponin I High Sens (<3.5-35.0) ng/L C-Reactive Protein (< or = 0.50) mg/dL Discharge Plan Discharge Clinical Impression: Gout Patient Disposition: Home, Self-Care Instructions: Gout (ED) Additional Instructions: Take pain medication as prescribed Prednisone for increased flare up Follow with PCP as needed Prescriptions: New prednisone 20 mg tablet 40 mg PO DAILY Qty: 10 0RF colchicine 0.6 mg tablet 0.6 mg PO DAILY Qty: 20 0RF No Action miscellaneous medical supply Misc See Rx Instructions miscellaneous .COMPLEX Qty: 1 0RF Rx Instructions: shower chair- lifetime metformin 1,000 mg tablet 1,000 mg PO BID Qty: 60 6RF gabapentin 600 mg tablet 600 mg PO BEDTIME Qty: 90 1RF furosemide 40 mg tablet 40 mg PO BID Qty: 90 5RF Rx Instructions: extra dose as needed for swelling, weight gain diltiazem HCl [Cardizem CD] 180 mg capsule,extended release 24hr 180 mg PO DAILY Qty: 90 3RF metoprolol tartrate 100 mg tablet 200 mg PO Q12H Qty: 120 5RF levothyroxine 75 mcg tablet 75 mcg PO DAILY Qty: 90 1RF allopurinol 100 mg tablet 200 mg PO DAILY Qty: 60 2RF Rx Instructions: To be taken with allopurinol 300 mg tablet to equal dose of 500 mg by mouth daily allopurinol 300 mg tablet 300 mg PO DAILY Qty: 30 2RF Rx Instructions: To be taken with allopurinol 200 mg (100mg tab x 2) to equal dose of 500 mg by mouth daily oxycodone 5 mg tablet 5 mg PO BID 7 Days Qty: 14 0RF warfarin 5 mg tablet 5 mg PO DAILY Qty: 90 1RF Protocol: Dose Management Condition: Wednesday (Week One) Dose/Route: 7.5 mg Instruction: 1 x 7.5 mg tablet Condition: Wednesday Dose/Route: 7.5 mg Instruction: 1 x 7.5 mg tablet Condition: Wednesday Dose/Route: 7.5 mg Instruction: 1 x 7.5 mg tablet Condition: Wednesday Dose/Route: 5 mg Instruction: 1 x 5 mg tablet Condition: Dose/Route: 7.5 mg Instruction: 1 x 7.5 mg tablet Condition: Wednesday Dose/Route: 7.5 mg Instruction: 1 x 7.5 mg tablet Condition: Wednesday Dose/Route: 7.5 mg Instruction: 1 x 7.5 mg tablet Condition: Wednesday (Week Two) Dose/Route: 7.5 mg Instruction: 1 x 7.5 mg tablet Condition: Wednesday Dose/Route: 7.5 mg Instruction: 1 x 7.5 mg tablet Condition: Wednesday Dose/Route: 7.5 mg Instruction: 1 x 7.5 mg tablet Condition: Wednesday Dose/Route: 5 mg Instruction: 1 x 5 mg tablet Condition: Dose/Route: 7.5 mg Instruction: 1 x 7.5 mg tablet Condition: Wednesday Dose/Route: 7.5 mg Instruction: 1 x 7.5 mg tablet Condition: Wednesday Dose/Route: 7.5 mg Instruction: 1 x 7.5 mg tablet Protocol Text: Adjustment Start Date: 08/21/21 INR Value: 2.3 INR Date: 08/21/21 Additional Instructions: CONT TO EAT BLUEBERRIES AND BROCCOLI warfarin 7.5 mg tablet 7.5 mg PO DAILY Qty: 90 1RF Protocol: Dose Management Condition: Wednesday (Week One) Dose/Route: 7.5 mg Instruction: 1 x 7.5 mg tablet Condition: Wednesday Dose/Route: 7.5 mg Instruction: 1 x 7.5 mg tablet Condition: Wednesday Dose/Route: 7.5 mg Instruction: 1 x 7.5 mg tablet Condition: Wednesday Dose/Route: 5 mg Instruction: 1 x 5 mg tablet Condition: Dose/Route: 7.5 mg Instruction: 1 x 7.5 mg tablet Condition: Wednesday Dose/Route: 7.5 mg Instruction: 1 x 7.5 mg tablet Condition: Wednesday Dose/Route: 7.5 mg Instruction: 1 x 7.5 mg tablet Condition: Wednesday (Week Two) Dose/Route: 7.5 mg Instruction: 1 x 7.5 mg tablet Condition: Wednesday Dose/Route: 7.5 mg Instruction: 1 x 7.5 mg tablet Condition: Wednesday Dose/Route: 7.5 mg Instruction: 1 x 7.5 mg tablet Condition: Wednesday Dose/Route: 5 mg Instruction: 1 x 5 mg tablet Condition: Dose/Route: 7.5 mg Instruction: 1 x 7.5 mg tablet Condition: Wednesday Dose/Route: 7.5 mg Instruction: 1 x 7.5 mg tablet Condition: Wednesday Dose/Route: 7.5 mg Instruction: 1 x 7.5 mg tablet Protocol Text: Adjustment Start Date: 08/21/21 INR Value: 2.3 INR Date: 08/21/21 Additional Instructions: CONT TO EAT BLUEBERRIES AND BROCCOLI Rx Instructions: Dosage will vary according to the INR miscellaneous medical supply Misc See Rx Instructions miscellaneous .COMPLEX Qty: 1 0RF Rx Instructions: 1 pair of diabetic shoes with inserts melatonin 3 mg tablet 3 mg PO BEDTIME PRN (Reason: sleep) Qty: 90 0RF (DME) FreeStyle Lite Strips Strip See Rx Instructions Not Applicable BID Qty: 10 Rx Instructions: As directed albuterol sulfate 90 mcg/actuation HFA aerosol inhaler 2 puff inhalation Q6H PRN omeprazole 20 mg capsule,delayed release(DR/EC) 20 mg PO DAILY PRN glipizide 10 mg tablet extended release 24hr 10 mg PO DAILY prednisone 20 mg tablet 20 mg PO DAILY fluticasone furoate [Arnuity Ellipta] inhalation Breo Ellipta 200-25 mcg/dose blister with device 1 inh inhalation DAILY 30 Days Qty: 60 5RF
[2021-08-25] MEDS: Ketorolac Tromethamine 30 MG/ML VIAL IVPUSH (22:34)
[2021-08-25 23:02] LABS: C Reactive Protein 5.49 mg/dL (< or = 0.50)
[2021-08-25 23:16] LABS: Glucose, Whole Blood 182 mg/dL (60-115)
[2021-08-25 23:22] LABS: Uric Acid 6.1 mg/dL (3.4-7.0)
[2021-08-25 23:26] VITALS: BP 124/57; PULSE 69; RESP 17; TEMP 36.6; O2SAT 97
[2021-08-25 23:33] LABS: Erythrocyte Sedimentation Rate 44 MM/HR (0-15)
[2021-08-26] MEDS: dexAMETHasone sod phosphate 10 MG/ML VIAL IVPUSH (01:04)
[2021-08-26 01:53] VITALS: BP 152/92; PULSE 84; RESP 14; TEMP 36.8; O2SAT 98
== END 2021-08-26 02:02 | disposition home or self-care (01) ==
PROVIDERS: Emergency Provider Internal Medicine; PCP Internal Medicine
DX: M10.9 Gout, unspecified (principal); R06.02 Shortness of breath; R73.9 Hyperglycemia, unspecified
CPT/HCPCS: 36415; 71045; 80048; 82947; 84484; 84550; 85025; 85652; 86140; 93005; 96374; 96375; 99284; 99285; J1100; J1885

== ENCOUNTER 2021-08-28 07:14 | Outpatient (REF) | payer MEDICARE, MEDICAID, SELFPAY ==
--- NOTE | ~2021-08-28 | XR_ITS ---
EXAMINATION: XR KNEE-BILATERAL CLINICAL INFORMATION: Pain in unspecified knee. COMPARISON: Bilateral knees done on 12/27/2019. TECHNIQUE: Frontal upright views of both knees, lateral and patellar views of the left knee and lateral and patellar views of the right knee. FINDINGS: Right knee: Asymmetric marked decreased joint space is noted at the lateral compartment with significant sclerosis of the articular margin and moderate size osteophyte formations. No evidence of any joint effusion. Mild osteoarthrosis of the patellofemoral joint. Vascular calcifications. Left knee: Mild decreased joint space is noted at both medial and lateral compartments. Moderate decrease joint space is noted at the patellofemoral compartment with contour irregularity of the superior pole of the patella and evidence of new bone formations, may represent old posttraumatic changes. No evidence of any joint effusion. Vascular calcifications. XR/XR knee RT 2V IMPRESSION: 1. The right knee shows moderate osteoarthrosis of the lateral compartment and mild osteoarthrosis of the patellofemoral and medial compartment. 2. The left knee shows moderate osteoarthrosis of all 3 compartments and likely old posttraumatic changes involving the superior pole of the patella and the adjacent soft tissues.
--- NOTE | ~2021-08-28 | XR_ITS ---
EXAMINATION: XR KNEE-BILATERAL CLINICAL INFORMATION: Pain in unspecified knee. COMPARISON: Bilateral knees done on 12/27/2019. TECHNIQUE: Frontal upright views of both knees, lateral and patellar views of the left knee and lateral and patellar views of the right knee. FINDINGS: Right knee: Asymmetric marked decreased joint space is noted at the lateral compartment with significant sclerosis of the articular margin and moderate size osteophyte formations. No evidence of any joint effusion. Mild osteoarthrosis of the patellofemoral joint. Vascular calcifications. Left knee: Mild decreased joint space is noted at both medial and lateral compartments. Moderate decrease joint space is noted at the patellofemoral compartment with contour irregularity of the superior pole of the patella and evidence of new bone formations, may represent old posttraumatic changes. No evidence of any joint effusion. Vascular calcifications. XR/XR knee LT 2V IMPRESSION: 1. The right knee shows moderate osteoarthrosis of the lateral compartment and mild osteoarthrosis of the patellofemoral and medial compartment. 2. The left knee shows moderate osteoarthrosis of all 3 compartments and likely old posttraumatic changes involving the superior pole of the patella and the adjacent soft tissues.
--- NOTE | ~2021-08-28 | XR_ITS ---
EXAMINATION: XR KNEE-BILATERAL CLINICAL INFORMATION: Pain in unspecified knee. COMPARISON: Bilateral knees done on 12/27/2019. TECHNIQUE: Frontal upright views of both knees, lateral and patellar views of the left knee and lateral and patellar views of the right knee. FINDINGS: Right knee: Asymmetric marked decreased joint space is noted at the lateral compartment with significant sclerosis of the articular margin and moderate size osteophyte formations. No evidence of any joint effusion. Mild osteoarthrosis of the patellofemoral joint. Vascular calcifications. Left knee: Mild decreased joint space is noted at both medial and lateral compartments. Moderate decrease joint space is noted at the patellofemoral compartment with contour irregularity of the superior pole of the patella and evidence of new bone formations, may represent old posttraumatic changes. No evidence of any joint effusion. Vascular calcifications. XR/XR knee standing BI IMPRESSION: 1. The right knee shows moderate osteoarthrosis of the lateral compartment and mild osteoarthrosis of the patellofemoral and medial compartment. 2. The left knee shows moderate osteoarthrosis of all 3 compartments and likely old posttraumatic changes involving the superior pole of the patella and the adjacent soft tissues.
== END 2021-08-28 07:15 | disposition home or self-care (01) ==
LOC: HO.HOSX 07:14
PROVIDERS: Visit Provider Physician Assistant
DX: M17.0 Bilateral primary osteoarthritis of knee (principal)
CPT/HCPCS: 20610; 73560; 73565; 99202; J1020

== ENCOUNTER → 2021-09-10 11:15 | Outpatient (BNVA) | payer MEDICARE, MEDICAID, SELFPAY | PROVIDERS: PCP Internal Medicine; Visit Provider Internal Medicine | DX: I48.20 Chronic atrial fibrillation, unspecified (principal); Z79.01 Long term (current) use of anticoagulants; Z51.81 Encounter for therapeutic drug level monitoring | CPT/HCPCS: 85610; 99211 ==

== ENCOUNTER → 2021-09-24 11:28 | Outpatient (BNVA) | payer MEDICARE, MEDICAID, SELFPAY | PROVIDERS: PCP Internal Medicine; Visit Provider Internal Medicine | DX: I48.20 Chronic atrial fibrillation, unspecified (principal); Z79.01 Long term (current) use of anticoagulants; Z51.81 Encounter for therapeutic drug level monitoring | CPT/HCPCS: 85610; 99211 ==

== ENCOUNTER → 2021-10-08 11:24 | Outpatient (BNVA) | payer MEDICARE, MEDICAID, SELFPAY | PROVIDERS: PCP Internal Medicine; Visit Provider Internal Medicine | DX: I48.20 Chronic atrial fibrillation, unspecified (principal); Z79.01 Long term (current) use of anticoagulants; Z51.81 Encounter for therapeutic drug level monitoring | CPT/HCPCS: 85610; 99211 ==

== ENCOUNTER → 2021-10-22 10:57 | Outpatient (BNVA) | payer MEDICARE, MEDICAID, SELFPAY | PROVIDERS: PCP Internal Medicine; Visit Provider Internal Medicine | DX: I48.20 Chronic atrial fibrillation, unspecified (principal); Z79.01 Long term (current) use of anticoagulants; Z51.81 Encounter for therapeutic drug level monitoring | CPT/HCPCS: 85610; 99211 ==

== ENCOUNTER 2021-10-30 13:46 | Outpatient (REF) | payer MEDICARE, MEDICAID, SELFPAY ==
[2021-10-30 15:19] LABS: Alanine Aminotransferase 16 U/L (0-40); Albumin Level 3.7 g/dL (3.5-5.0); Alkaline Phosphatase 54 U/L (39-117); Anion Gap 20 (12-20); Aspartate Amino Transferase 18 U/L (5-37); Bilirubin Total 0.3 mg/dL (0.0-1.0); Blood Urea Nitrogen 41 mg/dL (9-16); Carbon Dioxide 23 mmol/L (22-29); Chloride 98 mmol/L (96-108); Estimated Glomerular Filt Rate 41; Glucose Random 266 mg/dL (60-115); Potassium 4.3 mmol/L (3.3-5.1); Sodium 137 mmol/L (135-145); Total Protein 6.8 g/dL (6.5-8.0); Uric Acid 6.3 mg/dL (3.4-7.0)
== END 2021-10-30 13:47 | disposition home or self-care (01) ==
LOC: HO.LAB 13:46
PROVIDERS: PCP Internal Medicine; Visit Provider Nurse Practitioner Family
DX: M10.9 Gout, unspecified (principal)
CPT/HCPCS: 36415; 80053; 84550

== ENCOUNTER 2021-11-03 08:10 | Outpatient (REF) | payer MEDICARE, MEDICAID, SELFPAY ==
[2021-11-03 08:58] LABS: Estimated Glomerular Filt Rate 50
== END 2021-11-03 08:11 | disposition home or self-care (01) ==
LOC: HO.LAB 08:10
PROVIDERS: PCP Internal Medicine; Visit Provider Nurse Practitioner Family
DX: R79.89 Other specified abnormal findings of blood chemistry (principal)
CPT/HCPCS: 36415; 82565; 85610; 99211

== ENCOUNTER → 2021-11-04 09:52 | Outpatient (BNVA) | payer MEDICARE, MEDICAID, SELFPAY | PROVIDERS: PCP Internal Medicine; Visit Provider Nurse Practitioner Family | DX: M1A.09X1 Idiopathic chronic gout, multiple sites, with tophus (tophi) (principal) | CPT/HCPCS: 99212 ==

== ENCOUNTER 2021-11-12 08:04 | Outpatient (RCR) | payer MEDICARE, MEDICAID, SELFPAY | END 2021-12-11 11:10 | disposition home or self-care (01) | LOC: HO.WCC 08:04 | PROVIDERS: PCP Internal Medicine; Visit Provider Physician Assistant | DX: E11.622 Type 2 diabetes mellitus with other skin ulcer (principal); I87.333 Chronic venous hypertension (idiopathic) with ulcer and inflammation of bilateral lower extremity; E11.51 Type 2 diabetes mellitus with diabetic peripheral angiopathy without gangrene; L97.812 Non-pressure chronic ulcer of other part of right lower leg with fat layer exposed; L97.822 Non-pressure chronic ulcer of other part of left lower leg with fat layer exposed; E11.40 Type 2 diabetes mellitus with diabetic neuropathy, unspecified; I50.9 Heart failure, unspecified; I11.0 Hypertensive heart disease with heart failure; I25.2 Old myocardial infarction; Z79.84 Long term (current) use of oral hypoglycemic drugs | CPT/HCPCS: 11042; 29581; 99212 ==

== ENCOUNTER → 2021-11-26 10:30 | Outpatient (BNVA) | payer MEDICARE, MEDICAID, SELFPAY | PROVIDERS: PCP Internal Medicine; Visit Provider Internal Medicine | DX: I48.20 Chronic atrial fibrillation, unspecified (principal); Z79.01 Long term (current) use of anticoagulants; Z51.81 Encounter for therapeutic drug level monitoring | CPT/HCPCS: 85610; 99211 ==

== ENCOUNTER 2021-12-16 11:26 | Outpatient (REF) | payer MEDICARE, MEDICAID, SELFPAY ==
[2021-12-16 12:01] LABS: Hematocrit 43.8 % (42.0-52.0); Hemoglobin 13.9 g/dl (14.0-18.0); Mean Corpuscular HGB Conc 31.7 g/dl (31.0-36.0); Mean Corpuscular Hemoglobin 26.1 pg (27.0-33.0); Mean Corpuscular Volume 82.3 fL (80.0-98.0); Mean Platelet Volume 10.8 fL (9.4-12.4); Platelet Count 201 X10*3/uL (160-400); Red Blood Count 5.32 X10*6/uL (4.60-5.80); Red Cell Distribution Width 17.3 % (11.0-16.0); White Blood Count 6.6 X10*3/uL (4.8-10.8)
[2021-12-16 12:34] LABS: Blood Urea Nitrogen 28 mg/dL (9-16); Estimated Glomerular Filt Rate 44
[2021-12-16 12:41] LABS: Alanine Aminotransferase 22 U/L (0-40); Albumin Level 4.3 g/dL (3.5-5.0); Alkaline Phosphatase 72 U/L (39-117); Anion Gap 18 (12-20); Aspartate Amino Transferase 18 U/L (5-37); Bilirubin Total 0.8 mg/dL (0.0-1.0); Blood Urea Nitrogen 27 mg/dL (9-16); Calcium 9.3 mg/dL (8.4-10.2); Carbon Dioxide 24 mmol/L (22-29); Chloride 101 mmol/L (96-108); Cholesterol 264 mg/dL; Estimated Glomerular Filt Rate 44; Glucose Fasting 330 mg/dL (60-99); HDL Cholesterol 32 mg/dL; LDL Cholesterol Calculated 166 mg/dl; Potassium 3.8 mmol/L (3.3-5.1); Sodium 139 mmol/L (135-145); Total Protein 7.3 g/dL (6.5-8.0); Triglycerides 331 mg/dL
[2021-12-16 12:52] LABS: Prostate Specific Antigen Scr 0.83 ng/mL (<0.05-4.0)
== END 2021-12-16 11:27 | disposition home or self-care (01) ==
LOC: HO.LAB 11:26
PROVIDERS: Absent Provider Physician Assistant; PCP Physician Assistant; Visit Provider Nurse Practitioner Family
DX: Z12.5 Encounter for screening for malignant neoplasm of prostate (principal); I48.20 Chronic atrial fibrillation, unspecified; M10.9 Gout, unspecified; I50.32 Chronic diastolic (congestive) heart failure; E11.65 Type 2 diabetes mellitus with hyperglycemia; Z51.81 Encounter for therapeutic drug level monitoring; Z79.01 Long term (current) use of anticoagulants
CPT/HCPCS: 36415; 80053; 80061; 82565; 84153; 84443; 84520; 84550; 85027; 85610; 99211; 99212

== ENCOUNTER → 2021-12-18 13:31 | Outpatient (BNVA) | payer MEDICARE, MEDICAID, SELFPAY | PROVIDERS: PCP Physician Assistant; Visit Provider Internal Medicine | DX: G47.33 Obstructive sleep apnea (adult) (pediatric) (principal); J45.909 Unspecified asthma, uncomplicated; R60.0 Localized edema; E66.9 Obesity, unspecified; Z68.41 Body mass index [BMI] 40.0-44.9, adult | CPT/HCPCS: 99212 ==

== ENCOUNTER → 2021-12-23 13:30 | Outpatient (BNVA) | payer MEDICARE, MEDICAID, SELFPAY | PROVIDERS: PCP Physician Assistant; Visit Provider Internal Medicine | DX: I48.20 Chronic atrial fibrillation, unspecified (principal); Z79.01 Long term (current) use of anticoagulants; Z51.81 Encounter for therapeutic drug level monitoring | CPT/HCPCS: 85610; 99211 ==

== ENCOUNTER → 2022-01-02 07:51 | Outpatient (BNVA) | payer MEDICARE, MEDICAID, SELFPAY | PROVIDERS: PCP Physician Assistant; Visit Provider Internal Medicine Endocrinology, Diabetes & Metabolism | DX: E11.42 Type 2 diabetes mellitus with diabetic polyneuropathy (principal) | CPT/HCPCS: 36415; 80053; 82043; 82947; 84550; 86341; 99202 ==

== ENCOUNTER 2022-01-02 08:59 | Outpatient (REF) | payer MEDICARE, MEDICAID, SELFPAY ==
[2022-01-02 11:18] LABS: Alanine Aminotransferase 15 U/L (0-40); Alkaline Phosphatase 75 U/L (39-117); Anion Gap 19 (12-20); Aspartate Amino Transferase 19 U/L (5-37); Bilirubin Total 0.5 mg/dL (0.0-1.0); Blood Urea Nitrogen 27 mg/dL (9-16); Carbon Dioxide 23 mmol/L (22-29); Chloride 100 mmol/L (96-108); Estimated Glomerular Filt Rate 49; Glucose Random 265 mg/dL (60-115); Potassium 4.2 mmol/L (3.3-5.1); Sodium 138 mmol/L (135-145); Total Protein 7.1 g/dL (6.5-8.0); Uric Acid 4.9 mg/dL (3.4-7.0)
[2022-01-02 12:43] LABS: Creatinine Urine 54.41 mg/dL; Microalbum/Creatinine Ratio Ur 189.3 ug/mg cr
[2022-01-07 14:51] LABS: Glutamic acid decarboxylase Ab <5 IU/mL (<5)
== END 2022-01-02 09:00 | disposition home or self-care (01) ==
LOC: HO.10HDL 08:59
PROVIDERS: Absent Provider Internal Medicine Endocrinology, Diabetes & Metabolism; Visit Provider Nurse Practitioner Family
DX: Z13.89 Encounter for screening for other disorder (principal)
CPT/HCPCS: 36415; 80053; 82043; 84550; 86341

== ENCOUNTER → 2022-01-08 10:30 | Outpatient (BNVA) | payer MEDICARE, MEDICAID, SELFPAY | PROVIDERS: PCP Physician Assistant; Visit Provider Internal Medicine | DX: I48.20 Chronic atrial fibrillation, unspecified (principal); Z79.01 Long term (current) use of anticoagulants; Z51.81 Encounter for therapeutic drug level monitoring | CPT/HCPCS: 85610; 99211 ==

== ENCOUNTER → 2022-01-09 12:40 | Outpatient (REF) | payer MEDICARE, MEDICAID, SELFPAY ==
--- NOTE | 2022-01-09 12:44 | CA_ITS ---
Transthoracic Echocardiogram Patient (Last, First, Middle): Tony Brian S Gender: Male Date of : 1955 Age: 66 Procedure Date: 01/09/2022 Procedure Type: Transthoracic Echocardiogram Location: OP Height: 175. cm Weight: 127.01 kg BSA: 2.38 m2 Heart Rate: 93 bpm BP: 126 / 70 mmHg Health Type Technician: CRISTELA Referring MD: Benjamin Downing MD Field Services Analyst: Benjamin Downing MD Symptoms: I50.32 - Chronic diastolic (congestive) heart failure Study Quality: Adequate w contrast ECG Rhythm: Atrial Fibrillation Conclusions: - 1. Normal LV systolic function with LVEF of 55-60% 2. Severely dilated left atrium 3. Right ventricle is dilated with reduced systolic function 4. Normal cardiac valvular Doppler 5. Normal RV systolic pressure 6. No gross pericardial effusion Findings Procedure Information Contrast agent, definity, is being given per protocol without apparent complications. Left Ventricle Normal left ventricular size, thickness, and systolic function. The visually estimated ejection fraction is between 55-60%. Diastolic function is indeterminate on the basis of available data. There is mild septal asymmetric hypertrophy. Right Ventricle Moderately increased right ventricular cavity size. There is mildly decreased right ventricular systolic function. Atria The left atrium is severely dilated. Interatrial shunt cannot be excluded. The right atrium is mildly dilated. Aortic Valve The aortic valve was not well visualized. There is no aortic valve stenosis. There is no aortic valve regurgitation. Mitral Valve The mitral valve was not well visualized. There is no mitral valve regurgitation. There is no mitral valve stenosis. Pulmonic Valve The pulmonic valve was not well visualized. Tricuspid Valve Likely normal tricuspid valve structure and function. There is trace tricuspid valve regurgitation. The right ventricular systolic pressure is normal. The right ventricular systolic pressure is 30 mmHg. Normal right atrial pressure. Great Vessels The aorta was not well visualized. The pulmonary artery was not well visualized. Venous The inferior vena cava was not well visualized. Pericardium/Pleural There is no evidence of pericardial effusion. Prior Study Comparison Changes noted compared to prior study dated: 01/13/2021. RV systolic pressure is normal on this study Measurements 2D Linear Measurements IVSd: 1.42 0.6-0.9/0.6-1.0 cm LVIDd: 5.24 3.9-5.3/4.2-5.9 cm LVIDd Index: 2.20 2.4-3.2/2.2-3.1 cm/m2 LVIDs: 4.23 2.0-3.6 cm LVPWd: 1.01 0.7-1.1 cm LA Diam: 5.90 2.7-3.8/3.0-4.0 cm LAIDs Index: 2.48 1.5-2.3 cm/m2 LV Mass: 319.63 67-162/88-224 g LV Mass Index: 134.30 43-95/49-115 g/m2 LVOT Diam: 2.30 3.0+(-)1.3 cm 2D Systolic Function EF 4C: 59.80 >55% EF 2C: 55.50 >55% EF BiP: 58.20 >55% Mitral Valve MV Pk E: 0.95 Aortic Valve AoV Pk James: 1.16 AoV Pk Grad: 5.00 AMADOR: 3.60 LVOT LVOT Pk James: 1.02 LVOT Mn James: 0.70 LVOT VTI: 0.18 LVOT Pk Grad: 4.00 LVOT Mn Grad: 2.00 LVOT Diam: 2.30 LVOT Area: 4.15 Diastolic Function MV Pk E: 0.95 Right Ventricle TAPSE (mm): 16.50 TVS' James: 13.80 Tricuspid Valve TR Pk James: 2.59 TR Pk Grad: 27.00 RA Press: 3.00 RVSP: 30.00 Great Vessels Aorta Sinus of Valsalva: 3.20 2.0-3.5 cm Ao Asc: 4.00 2.1-3.4 cm Pulmonary Valve PV Pk James: 0.77 Peak PV Grad: 2.00 Updated in Other Vendor System with Status of Final Benjamin Downing MD electronically signed on 01/10/2022 12:04:15 PM with status of Final
== END ==
LOC: HO.CARD 12:40
PROVIDERS: PCP Physician Assistant; Visit Provider Internal Medicine Cardiovascular Disease
DX: I50.32 Chronic diastolic (congestive) heart failure (principal)
CPT/HCPCS: 93306; Q9957

== ENCOUNTER 2022-01-19 15:28 | Outpatient (REF) | payer MEDICARE, MEDICAID, SELFPAY ==
--- NOTE | ~2022-01-19 | CT_ITS ---
EXAMINATION: CT ABDOMEN WITHOUT CONTRAST CLINICAL INFORMATION: Diabetic polyneuropathy. COMPARISON: None TECHNIQUE: Contiguous axial thin section helical images of the abdomen were performed without contrast. The data set was reformatted in the coronal and sagittal planes and reviewed on an independent workstation. This CT examination was performed using dose optimization techniques as appropriate, variously including the following: *Automated exposure control *Adjustment of mA and/or kV according to patient size (this includes techniques or standardized protocols for targeted exams where dose is matched to indication/reason for exam; i.e. extremities or head) *Use of iterative reconstruction technique DLP: 667 mGy-cm FINDINGS: LUNG BASES: The lung bases are clear. There are pacer electrodes in right atrium and right ventricle. The heart size is normal. LIVER, GALLBLADDER, BILIARY TREE: The liver is homogeneous in density, normal size, contour. No focal lesion or intrahepatic ductal dilatation seen. There are no radiopaque gallstones. PANCREAS: The pancreas is normal size and density. The peripancreatic fat borders are preserved. SPLEEN: Unremarkable. ADRENAL GLANDS AND KIDNEYS: Both adrenal glands are symmetric and normal. There are bilateral renal cysts largest in the upper pole left kidney measuring 8.4 cm x 5.9 cm. There is no radiopaque calculi or hydronephrosis. BOWEL LOOPS: There is scattered stool in the colon without mural thickening. Appendix is not seen. Small bowel loops are normal caliber. LYMPH NODES: Normal. VASCULAR: Atherosclerotic calcification of abdominal aorta without aneurysmal dilatation. BONES: There are degenerative disc changes and ventral spondylosis throughout lower dorsal and upper lumbar spine. No aggressive lytic or sclerotic process seen. CT/CT abdomen wo IV con IMPRESSION: 1. No acute intra-abdominal process seen. 2. Bilateral renal cysts. 3. Mild constipation. Fleischner guidelines were followed.
== END 2022-01-19 15:29 | disposition home or self-care (01) ==
LOC: HO.CT 15:28
PROVIDERS: PCP Physician Assistant; Visit Provider Internal Medicine Endocrinology, Diabetes & Metabolism
DX: E11.42 Type 2 diabetes mellitus with diabetic polyneuropathy (principal); I48.20 Chronic atrial fibrillation, unspecified; Z51.81 Encounter for therapeutic drug level monitoring; Z79.01 Long term (current) use of anticoagulants
CPT/HCPCS: 74150; 85610; 99211

== ENCOUNTER 2022-01-20 12:39 | Outpatient (REF) | payer MEDICARE, MEDICAID, SELFPAY ==
--- NOTE | ~2022-01-20 | US_ITS ---
EXAMINATION: US VENOUS RIGHT LOWER EXTREMITY (REFLUX EXAM) CLINICAL INDICATION: Leg pain and varicose veins. COMPARISON: None TECHNIQUE: Color flow triplex imaging and compression Doppler was performed to evaluate both the deep and the superficial systems in the right leg. To evaluate the superficial system, the examination was performed in the upright position. Color-flow Doppler ultrasound and compression ultrasound were utilized. In addition, maneuvers were utilized to demonstrate reflux. FINDINGS: 1. DEEP VENOUS ULTRASOUND OF THE RIGHT LOWER EXTREMITY: Respiratory variation, normal compression and augmented flow are noted in the right common femoral vein as well as the right popliteal vein and there is no evidence of deep venous thrombosis at these locations. There is no evidence of reflux in the deep system in either the common femoral vein or the popliteal vein. There is no evidence of a Munguia's cyst. 2. SUPERFICIAL ULTRASOUND WITH DOPPLER OF RIGHT LOWER EXTREMITY: The right great saphenous vein at the saphenofemoral junction measures 9 mm, at the proximal thigh 7 mm, at the mid thigh 5 mm, above the knee 6 mm, at the knee 5 mm, [id number] 6 mm, midcalf 4 mm and at the ankle measures 5 mm. There is no reflux demonstrated in the right great saphenous vein. Duplicated Right Great Saphenous Vein: There is a lateral accessory saphenous that measures 4 mm without reflux. The right small saphenous vein measures 7 mm and demonstrates gross reflux of greater than 3 seconds. Accessory Vein of Giacomini: None Incompetent Perforators: None Varices Present: None US/US venous duplex LE RT IMPRESSION: 1. Deep venous system appears normal without thrombus or reflux. 2. Dilated grossly refluxing right small saphenous vein. 3. The right great saphenous vein is competent without reflux.
== END 2022-01-20 12:40 | disposition home or self-care (01) ==
LOC: HO.US 12:39
PROVIDERS: Visit Provider Physician Assistant
DX: I87.323 Chronic venous hypertension (idiopathic) with inflammation of bilateral lower extremity (principal); L97.812 Non-pressure chronic ulcer of other part of right lower leg with fat layer exposed
CPT/HCPCS: 93971

== ENCOUNTER → 2022-01-27 15:01 | Outpatient (BNVA) | payer MEDICARE, MEDICAID, SELFPAY | PROVIDERS: PCP Physician Assistant; Visit Provider Registered Nurse Diabetes Educator | DX: E11.65 Type 2 diabetes mellitus with hyperglycemia (principal) | CPT/HCPCS: 99211 ==

== ENCOUNTER → 2022-02-02 11:55 | Outpatient (BNVA) | payer MEDICARE, MEDICAID, SELFPAY | PROVIDERS: PCP Physician Assistant; Referring Provider Physician Assistant; Visit Provider Internal Medicine Cardiovascular Disease | DX: Z45.018 Encounter for adjustment and management of other part of cardiac pacemaker (principal); I50.32 Chronic diastolic (congestive) heart failure; I48.11 Longstanding persistent atrial fibrillation | CPT/HCPCS: 99212 ==

== ENCOUNTER → 2022-02-12 11:23 | Outpatient (BNVA) | payer MEDICARE, MEDICAID, SELFPAY | PROVIDERS: PCP Physician Assistant; Visit Provider Internal Medicine | DX: E11.42 Type 2 diabetes mellitus with diabetic polyneuropathy (principal); I48.20 Chronic atrial fibrillation, unspecified; Z51.81 Encounter for therapeutic drug level monitoring; Z79.01 Long term (current) use of anticoagulants; Z79.4 Long term (current) use of insulin | CPT/HCPCS: 82947; 83036; 85610; 99211; 99212 ==

== ENCOUNTER → 2022-03-05 11:29 | Outpatient (BNVA) | payer MEDICARE, MEDICAID, SELFPAY | PROVIDERS: PCP Internal Medicine; Visit Provider Internal Medicine | DX: I48.20 Chronic atrial fibrillation, unspecified (principal); Z79.01 Long term (current) use of anticoagulants; Z51.81 Encounter for therapeutic drug level monitoring | CPT/HCPCS: 85610; 99211 ==

== ENCOUNTER → 2022-03-10 10:59 | Outpatient (BNVA) | payer MEDICARE, MEDICAID, SELFPAY | PROVIDERS: PCP Physician Assistant; Visit Provider Registered Nurse Diabetes Educator | DX: E11.65 Type 2 diabetes mellitus with hyperglycemia (principal) | CPT/HCPCS: 99211 ==

== ENCOUNTER → 2022-03-18 11:58 | Outpatient (BNVA) | payer MEDICARE, MEDICAID, SELFPAY | PROVIDERS: PCP Physician Assistant; Visit Provider Nurse Practitioner Family | DX: M10.9 Gout, unspecified (principal); Z79.899 Other long term (current) drug therapy | CPT/HCPCS: 99212 ==

== ENCOUNTER → 2022-03-19 11:19 | Outpatient (BNVA) | payer MEDICARE, MEDICAID, SELFPAY | PROVIDERS: PCP Physician Assistant; Visit Provider Internal Medicine | DX: I48.20 Chronic atrial fibrillation, unspecified (principal); Z79.01 Long term (current) use of anticoagulants; Z51.81 Encounter for therapeutic drug level monitoring | CPT/HCPCS: 85610; 99211 ==

== ENCOUNTER → 2022-04-02 10:59 | Outpatient (BNVA) | payer MEDICARE, MEDICAID, SELFPAY | PROVIDERS: PCP Physician Assistant; Visit Provider Internal Medicine | DX: I48.20 Chronic atrial fibrillation, unspecified (principal); Z79.01 Long term (current) use of anticoagulants; Z51.81 Encounter for therapeutic drug level monitoring | CPT/HCPCS: 85610; 99211 ==

== ENCOUNTER 2022-04-03 14:23 | Outpatient (REF) | payer MEDICARE, MEDICAID, SELFPAY ==
--- NOTE | ~2022-04-03 | US_ITS ---
EXAMINATION: US RETROPERITONEAL LIMITED (RENAL ONLY) CLINICAL INFORMATION: Chronic kidney disease stage 3. COMPARISON: CT abdomen noncontrast 01/19/2022. TECHNIQUE: Real-time imaging of the kidneys. FINDINGS: RIGHT KIDNEY: 12.8 x 7.1 x 5.9 cm (SAG x AP x TRV). The kidney is normal in size, contour, and echogenicity. Renal cortical thickness is normal. No renal calculi or hydronephrosis. There is a benign-appearing Bosniak 2F complicated cyst upper pole with overall size 5.1 x 3.0 x 3.4 cm. There are a few fine avascular internal septations, largest approximately 3 mm in thickness. Prior measurements on noncontrast CT approximately 3.4 x 2.4 cm. LEFT KIDNEY: 12.1 x 5.5 x 6.1 cm (SAG x AP x TRV). The kidney is normal in size, contour, and echogenicity. Renal cortical thickness is normal. No renal calculi or hydronephrosis. There is a benign Bosniak 2 simple cysts exophytic upper pole measuring 7.9 x 7.1 x 7.9 cm. Prior measurement on noncontrast CT approximately 8.3 x 6.2 cm. US/US renal BI IMPRESSION: Right: -No hydronephrosis or calculi. -Normal renal parenchymal thickness and echogenicity. -Bosniak 2F complicated cyst upper pole. Recommend follow-up ultrasound in 6 months. Left: -No hydronephrosis or calculi. -Normal renal parenchymal thickness and echogenicity. -Bosniak 2 benign simple cyst upper pole 7.9 cm.
== END 2022-04-03 14:24 | disposition home or self-care (01) ==
LOC: HO.US 14:23
PROVIDERS: Visit Provider Internal Medicine Nephrology
DX: E11.21 Type 2 diabetes mellitus with diabetic nephropathy (principal); E11.22 Type 2 diabetes mellitus with diabetic chronic kidney disease; I12.9 Hypertensive chronic kidney disease with stage 1 through stage 4 chronic kidney disease, or unspecified chronic kidney disease; N18.31 Chronic kidney disease, stage 3a
CPT/HCPCS: 76775

== ENCOUNTER 2022-04-07 11:31 | Inpatient (IN) | payer MEDICARE, MEDICAID, SELFPAY ==
[2022-04-07] VITALS (17 sets, daily range): BP systolic 95–144; BP diastolic 43–108; PULSE 114–205; RESP 4–366; TEMP 38.3; O2SAT 92–100; BMI 51.7; BMI 42.2
--- NOTE | ~2022-04-07 | XR_ITS ---
EXAMINATION: XR CHEST CLINICAL INFORMATION: Status post enteric tube placement. COMPARISON: Chest radiograph 04/07/2022. TECHNIQUE: Frontal view of the chest was obtained. FINDINGS: Right IJ CVC terminates at the level of the cavoatrial junction. Left-sided pacer with leads projecting over the right atrium and right ventricle, similar to prior. EKG wires overlie the chest. Stable appearance of the cardiomediastinal silhouette. Enteric tube tip projects over the proximal stomach. The side-port is not well identified. Low lung volumes with bronchovascular crowding and subsegmental atelectasis. No focal consolidation. No pleural effusion or pneumothorax. No acute osseous abnormalities. The visualized upper abdomen is within normal limits. XR/XR chest 1V IMPRESSION: 1. Enteric tube tip projects over the proximal stomach. 2. Low lung volumes with bronchovascular crowding and subsegmental atelectasis.
--- NOTE | ~2022-04-07 | XR_ITS ---
EXAMINATION: XR CHEST CLINICAL INFORMATION: Endotracheal tube COMPARISON: 04/14/2022 TECHNIQUE: Frontal view of the chest was obtained. FINDINGS: Endotracheal tube tip projects 2.0 cm above the mandeep. Right CVC tip projects over the cavoatrial junction. A centimeter device are unchanged in position. New left lung 2.0 cm nodular opacity Unchanged cardiomediastinal silhouette. XR/XR chest 1V IMPRESSION: 1. Endotracheal tube tip projects 2.0 cm above the mandeep. New left lung 2.0 cm nodular opacity.
--- NOTE | ~2022-04-07 | CT_ITS ---
EXAMINATION: CT RIGHT LOWER EXTREMITY WITHOUT CONTRAST CT LEFT LOWER EXTREMITY WITHOUT CONTRAST CLINICAL INFORMATION: Rule out fasciitis. Looking for gas. COMPARISON: None TECHNIQUE: Multidetector volumetric imaging was obtained through the right and left lower extremities without contrast material. Images were obtained from the level of the distal femoral diaphyses to the ankles Multiplanar reformatted images in coronal and sagittal orientations were submitted. This CT examination was performed using dose optimization techniques as appropriate, variously including the following: *Automated exposure control *Adjustment of mA and/or kV according to patient size (this includes techniques or standardized protocols for targeted exams where dose is matched to indication/reason for exam; i.e. extremities or head) *Use of iterative reconstruction technique DLP: 316 mGy-cm FINDINGS: Right lower extremity: There is subcutaneous edema/fat stranding at the right lower leg from the level of the distal thigh through the ankle, most pronounced anteriorly and laterally with additional findings posteriorly. Mild skin thickening is noted. No subcutaneous gas. No discrete fluid collections are identified on these images. There is mild fatty atrophy of the calf musculature. No appreciable intramuscular fascial fluid collections or inflammatory findings on this unenhanced CT. Calcific atherosclerosis is present in the popliteal and runoff arteries. Calcifications are evident in the regions of the posterior tibialis and flexor digitorum longus tendons at the level of the ankle and subtalar joints. Tendons are otherwise unremarkable. There is a small right knee joint effusion. Marked tricompartmental osteoarthritis is noted. No intra-articular gas. No acute osseous findings. No fractures or acute osteolysis. There is mild osteoarthritis of the right ankle. Chronic appearing erosions are evident at the distal tibiofibular syndesmosis. Left lower extremity: Subcutaneous fat stranding/edema is evident within the left lower extremity extending from the level of the distal thigh through the ankle, most pronounced anterolaterally. This is also seen posteriorly to a lesser extent and more circumferentially at the ankle. Skin thickening is evident at the ankle. No appreciable subcutaneous fluid collections are identified. No subcutaneous gas. There is mild atrophy and fatty replacement of the calf musculature diffusely. No intramuscular fluid collections. No appreciable CT findings of fasciitis. Calcific atherosclerosis is present in the popliteal and runoff arteries. Marked calcification is seen within the left quadriceps tendon just proximal to the insertion on the patella with significant erosion along the proximal margin of the patella. A cluster of calcification is also evident in the prepatellar bursa as well as the medial and lateral soft tissues around the knee and the thickened Achilles tendon. There is tricompartmental osteoarthritis at the knee. Multiple periarticular erosions are evident, though most notably at the proximal pole of the patella. No acute osseous abnormalities at the tibia and fibula. Small left knee joint effusion. At the level of the ankle, there is nonuniform joint space narrowing with erosions in the distal tibiofibular syndesmosis and at the margins of the tibia and talus. Additional erosions are present at the subtalar joint. CT/CT lower leg RT wo IV con IMPRESSION: 1. No subcutaneous gas to indicate necrotizing fasciitis. 2. Subcutaneous edema/fat stranding in the right lower extremity, most pronounced anteriorly and laterally. This is nonspecific and can be seen with cellulitis, venous insufficiency, and lymphedema. No abscess. 3. Multifocal calcium deposition in the bilateral lower extremities, left side greater than right, with articular erosions are most pronounced at the left patella and bilateral distal tibiofibular syndesmoses. These findings are suggestive of gout. Other causes of crystalline arthropathies or causes of crystal deposition are also possible. 4. Tricompartmental degenerative arthritis in both knees with associated joint effusions.
--- NOTE | ~2022-04-07 | XR_ITS ---
EXAMINATION: XR CHEST CLINICAL INFORMATION: Line placement COMPARISON: 08/25/2021 TECHNIQUE: Frontal view of the chest was obtained. FINDINGS: Left chest wall pacer with leads over the right atrium and right ventricle. There is a new right internal jugular central venous catheter terminating near the cavoatrial junction. Lung volumes are low with chronic elevation of the right hemidiaphragm. No consolidation, edema, or effusion. No pneumothorax. The cardiomediastinal silhouette is unchanged, with a calcified aorta. XR/XR chest 1V IMPRESSION: Right internal jugular central venous catheter terminates near the cavoatrial junction. No pneumothorax.
--- NOTE | ~2022-04-07 | CT_ITS ---
EXAMINATION: CT HEAD WITHOUT CONTRAST CLINICAL INFORMATION: Head trauma COMPARISON: None. TECHNIQUE: Contiguous axial imaging was performed from the skull base to vertex without intravenous administration of contrast. This CT examination was performed using dose optimization techniques as appropriate, variously including the following: *Automated exposure control *Adjustment of mA and/or kV according to patient size (this includes techniques or standardized protocols for targeted exams where dose is matched to indication/reason for exam; i.e. extremities or head) *Use of iterative reconstruction technique DLP: 4120 mGy-cm FINDINGS: There is no evidence of acute intracranial hemorrhage or territorial infarction. No abnormal mass effect or midline shift is seen. Leon to white matter differentiation is well preserved. No extra-axial fluid collections are identified. The ventricles are normal in size. There is no abnormal attenuation within the brain parenchyma. Right-sided soft tissue edema/swelling predominantly involving the temporal bone and lateral right orbit without underlying bony defect. Very mild hyperostosis frontalis interna. The osseous structures and soft tissues are normal. The mastoid air cells and visualized portions of the paranasal sinuses are well aerated. CT/CT cervical spine wo IV con IMPRESSION: 1. No acute intracranial pathology. 2. Right-sided soft tissue edema/swelling predominantly involving the temporal bone and lateral right orbit without underlying bony defect. EXAMINATION: Noncontrast CT scan of the cervical spine. INDICATION: Trauma COMPARISON: None. TECHNIQUE: Helical, multidetector axial images were obtained from the occiput to the upper thorax. Coronal and sagittal reformats of the cervical spine were provided for interpretation. DLP: 4120 mGy-cm FINDINGS: No acute fractures or dislocations of the cervical spine are seen. Multilevel degenerative changes of the cervical spine. Subchondral cystic changes involving the base of the dens left side Anatomic alignment and positioning of the vertebral bodies and posterior elements is noted. The atlantoaxial joint and craniovertebral articulations are normal without evidence of subluxation. There is no prevertebral soft tissue swelling. The visualized portions of the lung apices and mediastinum are unremarkable. IMPRESSION: 1. No acute visible fracture or dislocation. 2. Multilevel degenerative changes of the cervical spine.
--- NOTE | ~2022-04-07 | CT_ITS ---
EXAMINATION: CT CHEST, ABDOMEN AND PELVIS WITHOUT CONTRAST CLINICAL INFORMATION: Trauma COMPARISON: CT abdomen from 01/19/2022 TECHNIQUE: Multidetector volumetric CT imaging of the chest, abdomen, and pelvis was performed. Axial MIP volume rendering provided. Sagittal and coronal reformatted images were obtained. This CT examination was performed using dose optimization techniques as appropriate, variously including the following: *Automated exposure control *Adjustment of mA and/or kV according to patient size (this includes techniques or standardized protocols for targeted exams where dose is matched to indication/reason for exam; i.e. extremities or head) *Use of iterative reconstruction technique DLP: 4120 mGy-cm. FINDINGS: CHEST: LUNGS/PLEURA: Respiratory motion artifact slightly limits evaluation. Azygous fissure and lobe. Atelectasis along the anterior aspect of the right. No large suspicious pulmonary nodular masses are noted. Bibasilar atelectasis. Central airways are patent. No pneumothorax. No large pleural effusion. MEDIASTINUM: Heart is mildly enlarged. No pericardial effusion. Coronary artery calcifications are noted. Aorta is nonaneurysmal calcifications. Main pulmonary artery enlarged. No enlarged lymph nodes per size criteria left-sided pacer with its leads terminating in AXILLA: No lymphadenopathy. ABDOMEN AND PELVIS: Evaluation is limited secondary to respiratory motion artifact. LIVER, GALLBLADDER, AND BILIARY TREE: The liver is normal in size, shape, and attenuation. No focal hepatic lesion or biliary ductal dilatation is present. The gallbladder is unremarkable with no evidence of radiopaque gallstones, gallbladder wall thickening, or obvious pericholecystic inflammatory changes. PANCREAS: Fatty infiltration of the pancreas. SPLEEN: Unremarkable. ADRENAL GLANDS: Unremarkable. KIDNEYS AND URETERS: Bilateral renal hypodensities demonstrating fluid attenuation statistically representing cysts the largest in the anterior aspect of the left renal upper pole measuring 7.5 cm. the kidneys are normal in size, shape, and attenuation. No hydronephrosis, hydroureter, or calculi seen. No perinephric stranding. BLADDER: Bladder decompressed with Parks catheter balloon in situ. GASTROINTESTINAL TRACT: The small and large bowel are unremarkable. The appendix is is not definitively visualized. No secondary signs of appendicitis. ABDOMINAL WALL: No central fat filled hernia measuring 1.3 cm at its opening LYMPH NODES: No enlarged lymph nodes per size criteria. Mildly prominent periaortic and common iliac lymph nodes are noted, not enlarged per size criteria. VASCULAR: Abdominal aorta is nonaneurysmal. Atherosclerotic calcifications of the abdominal aorta and its branches. PELVIC VISCERA: Prostate measures up to 4.2 cm with coarse calcifications within its body. OSSEOUS STRUCTURES: Osteopenia. Multilevel degenerative changes of the thoracolumbar and lumbosacral spine. No large lytic or blastic lesions are noted. CT/CT abdomen pelvis wo IV con IMPRESSION: 1. Evaluation is limited secondary to respiratory motion artifact. 2. No acute process of the chest, abdomen, or pelvis identified. 3. Bilateral renal hypodensities demonstrating fluid attenuation statistically representing cysts the largest in the anterior aspect of the left renal upper pole measuring 7.5 cm. 4. Bladder decompressed with Parks catheter balloon in situ. 5. Prostate measures up to 4.2 cm with coarse calcifications within its body. 6. Osteopenia.
--- NOTE | ~2022-04-07 | US_ITS ---
EXAMINATION: US ABDOMEN LIMITED CLINICAL INFORMATION: Right upper quadrant pain with increased LFTs. Gallbladder only scan. COMPARISON: CT chest abdomen pelvis performed earlier the same date TECHNIQUE: Limited right upper quadrant abdominal ultrasound evaluating the gallbladder and common bile duct was performed. FINDINGS: GALLBLADDER: Normal. The gallbladder is physiologically distended without evidence of stones, sludge, polyps, or pericholecystic fluid. The gallbladder wall is borderline to slightly thickened measuring 3-4 mm in thickness, nonspecific. The patient did not have a sonographic Delacruz sign at time of the exam per technologist report. COMMON BILE DUCT: Normal in caliber measuring 0.3 cm in diameter. US/US abdomen limited IMPRESSION: 1. No evidence of cholelithiasis. Borderline mild gallbladder wall thickening. No other specific sonographic findings of acute cholecystitis. 2. No biliary ductal dilation.
--- NOTE | 2022-04-07 11:35 | ECG_ITS ---
Test Reason : fall Blood Pressure : / mmHG Vent. Rate : 183 BPM Atrial Rate : 000 BPM P-R Int : 000 ms QRS Dur : 090 ms QT Int : 260 ms P-R-T Axes : 000 054 -57 degrees QTc Int : 453 ms Atrial fibrillation with rapid ventricular response Nonspecific ST and T wave abnormality Abnormal ECG When compared with ECG of 25-AUG-2021 16:18, Vent. rate has increased BY 95 BPM Nonspecific T wave abnormality now evident in Inferior leads Referred By: Marilu Delgado Electronically Signed By:ISABELL TRAVIS
--- NOTE | 2022-04-07 11:42 | ED_ITS ---
HPI - Trauma General Chief Complaint: Altered Mental Status Stated Complaint: FALL 2 DAYS AGO,ON THINNERS,NO HEAD STRIKE PER EMS Source: patient and EMS Mode of arrival: EMS Limitations: altered mental status History of Present Illness HPI narrative: 66 yo male with PMH of HTN, HLD, COPD not on home O2, edema, recurrent leg ulcers, DM, cellulitis, chronic pain, PPM, afib on coumadin last ECHO 12/2021 EF 55 - 60% notes he was cleaning the house and when he went to get up he couldn't a couple of days ago. The people who normally check on him didn't and he ended up just laying on the ground. Meals on wheels came today and he was on the floor altered hypoxic 85% on RA, HR in 200s, R side of body covered in ecchymosis and blisters. He notes this has never happened before MD complaint: other (unable to get up off the floor) Onset (ago): day(s) (2) Loss of Consciousness: no Severity: moderate Context: other (states he couldn't get off henrietta) Associated symptoms: loss of appetite and weakness Related Data Home Medications Medication Instructions Recorded Confirmed albuterol sulfate 90 mcg/actuation 2 puff inhalation Q6H PRN Wheezing 12/27/19 04/07/22 aerosol inhaler warfarin 7.5 mg tablet (Jantoven) 0.5 tab PO BRENNAN 04/07/22 04/07/22 warfarin 7.5 mg tablet (Jantoven) 1 tab PO MOTUWETHFRSA 04/07/22 04/07/22 Previous Rx's Medication Instructions Recorded diltiazem HCl 180 mg 180 mg PO DAILY #90 caps 05/26/21 capsule,extended release 24 hr (Cardizem CD) compr.stocking,knee,long,x-lrg #2 ea 12/04/21 empagliflozin 25 mg tablet 25 mg PO DAILY 90 days #90 tabs 12/08/21 (Jardiance) blood sugar diagnostic (FreeStyle #100 ea 01/02/22 Lite Strips) lancets 28 gauge (FreeStyle #100 ea 01/02/22 Lancets) blood-glucose meter (FreeStyle #1 ea 01/05/22 Lite Meter kit) metoprolol tartrate 100 mg tablet 200 mg PO Q12H #120 tabs 01/05/22 melatonin 3 mg tablet 3 mg PO BEDTIME PRN sleep #90 tabs 02/04/22 allopurinol 300 mg tablet 600 mg PO DAILY #60 tabs 02/11/22 dulaglutide 1.5 mg/0.5 mL 1.5 mg (0.5 mL) subcut QWEEK #2 mL 02/12/22 subcutaneous pen injector (Trulicity) ezetimibe 10 mg tablet (Zetia) 10 mg PO DAILY 90 days #90 tabs 02/12/22 Breo Ellipta 200 mcg-25 mcg/dose 1 ea PO DAILY #60 ea 03/06/22 powder for inhalation (fluticasone furoate-vilanterol) metformin 1,000 mg tablet 1,000 mg PO BID #60 tabs 03/06/22 warfarin 7.5 mg tablet 7.5 mg PO DAILY #90 tabs 03/06/22 furosemide 40 mg tablet 40 mg PO BID edema 30 days #80 tabs 04/03/22 gabapentin 600 mg tablet 600 mg PO BEDTIME #90 tabs 04/04/22 levothyroxine 75 mcg tablet 75 mcg PO DAILY #90 caps 04/04/22 Allergies Allergy/AdvReac Type Severity Reaction Status Date / Time tramadol Allergy Severe DIFF Verified 04/02/22 11:05 BREATHING RASH amiodarone Allergy Unknown ELEVATED Verified 04/02/22 11:05 LFTs, BLURRY VISION, SOB atorvastatin Allergy Unknown MYALGIA Verified 04/02/22 11:05 Review of Systems Review of Systems: ROS unable to be obtained due to altered mental status [facility] Past Medical History Source: old records reviewed Medical History Atrial fibrillation Cardiac pacemaker in situ Chronic heart failure with preserved ejection fraction (HFpEF) Chronic pain syndrome Controlled diabetes mellitus with diabetic polyneuropathy COPD (chronic obstructive pulmonary disease) Diabetes mellitus Diabetic foot Lyme disease Obesity Obstructive sleep apnea Screening for prostate cancer Surgical History History of colonoscopy History of total knee replacement Hx of left knee surgery Family History Family History Mother Esophagus cancer Father Esophagus cancer Brother Pancreatic cancer Sister Breast cancer Sister A-fib Social History Social History Household Members: None Housing: Apartment Alcohol intake: never Patient Tobacco Use Status: Never used Tobacco e-Cigarette/Vaping Use: Never Used Second Hand Smoke Exposure: No Advance Directives: No Advance Directives Information Provided: No service: No Current occupational status: disabled Current occupation: Right Handed Cognitive needs: Yes (cane) Hearing needs: No Vision needs: No Physical Exam Vital Signs: Vital Signs: Last Vital Signs Temp 100.9 F H 04/07/22 13:38 Pulse 143 H 04/07/22 13:33 Resp 38 H 04/07/22 13:33 BP 103/56 L 04/07/22 13:33 Pulse Ox 97 04/07/22 13:33 O2 Del Method 04/07/22 13:33 Oxygen Flow Rate 9 04/07/22 13:10 BMI result Body Mass Index 51.7 Appearance: Alert. Oriented Xself and place not time. Moderate acute distress. Eyes: Pupils equal, round and reactive to light. R periorbital area - yellowish and boggy clear fluid filled edema ENT: Pharynx incredibly dry mouth Neck: Normal inspection. Neck supple. CVS: irregular tachycardic heart rate and rhythm. Pulses decreased Respiratory: Moderate respiratory distress - tachypnea and retractions Breath sounds wheezes and coarse throughout Abdomen: Soft and denies ttp but R Flank contusions and abrasions Skin: Skin warm with left leg ulcers noted and purplish color noted. pale skin color Extremities: 2+ pitting edema, R thigh dependent ecchymosis noted, L buttock ecchymosis, RUE ecchymosis along R bicep area and shoulder with clear fluid filled vesicles near shoulder - all compartments are soft and compressible Back: dependent hernandez noted along back with contusions and abrasions Neuro: Oriented X 2. No motor deficit. No sensory deficit. Course Course Course Narrative: states he does not want CPR or to be intubated, HCP proxy form - attempting to call Oumar but no answer will continue to call 1202pm call back from HCP Oumar, patient is a Uatsdin - Oumar states that he would be okay with short term treatments but not snf. would not want prolonged life support. He states currently patient is full code but not to prolong life support. patient is obese IBW is 75.4 which is equal to 2, 262 NS bolus - 2500c ordered ICU aware 1235 dilt drip ordered, VBG not retention, speaking but confused on time, protecting airway will hold off in Medications Administered Generic Name Dose Route Start Last Admin Trade Name Freq PRN Reason Stop Dose Admin Diltiazem HCl 125 mg/ Sodium 125 mls @ 0 mls/hr 04/07/22 12:15 04/07/22 12:21 Chloride IVCONT 10 mg/hr .Q0M JUAN DANIEL 10 mls/hr Administration Protocol Per Protocol Discontinued Medications Generic Name Dose Route Start Last Admin Trade Name Freq PRN Reason Stop Dose Admin Acetaminophen 650 mg 04/07/22 11:34 04/07/22 12:36 Acetaminophen Supp 650 Mg Supp.Rect MO 04/07/22 11:35 650 mg ONCE ONE Administration Diltiazem HCl 10 mg 04/07/22 11:34 04/07/22 12:39 Diltiazem Hcl 50 Mg/10 Ml Vial IVPUSH 04/07/22 11:35 10 mg STAT STA Administration Diltiazem HCl 10 mg 04/07/22 11:53 04/07/22 12:39 Diltiazem Hcl 50 Mg/10 Ml Vial IVPUSH 04/07/22 11:54 10 mg ONCE ONE Administration Sodium Chloride 1,000 mls @ 999 mls/hr 04/07/22 11:45 04/07/22 13:51 Ns IV 04/07/22 12:45 Infused .Q1H1M JUAN DANIEL Infusion Ceftriaxone Sodium 1 gm/ 50 mls @ 100 mls/hr 04/07/22 11:34 04/07/22 13:40 Sodium Chloride IV 04/07/22 12:03 Infused ONCE ONE Infusion Sodium Chloride 1,000 mls @ 999 mls/hr 04/07/22 12:30 04/07/22 13:27 Ns IV 04/07/22 13:30 999 mls/hr .Q1H1M JUAN DANIEL Administration Sodium Chloride 500 mls @ 500 mls/hr 04/07/22 12:30 04/07/22 13:26 Ns IV 04/07/22 13:29 500 mls/hr .Q1H JUAN DANIEL Administration Levalbuterol HCl 1.25 mg 04/07/22 12:01 04/07/22 12:24 Levalbuterol Hcl 1.25 Mg/0.5 Ml Vial.Neb INHALE 04/07/22 12:02 1.25 mg ONCE ONE Administration Metoprolol Tartrate 10 mg 04/07/22 13:23 04/07/22 13:27 Metoprolol Tartrate 5 Mg/5 Ml Vial IVPUSH 04/07/22 13:24 10 mg ONCE ONE Administration Procedures Central Line Placement Right IJ: Time Out Performed: Yes Patient Placed on Monitor/Pulse Ox: Yes MD Prep: mask, gown and gloves Central Line Prep: Chlorhexidine scrub Local Anesthetic: lidocaine 1% Amount of anesthesia used (mL): 3 Ultrasound Used for Placement: Yes Central Line Lumen Inserted: triple Post Procedure: sutured in place, good blood return, all ports aspirated, flushed, capped and sterile dressing applied Post Procedure X-Ray: tip of catheter in good position and no pneumothorax seen Patient Tolerated Procedure: well and no complications Complications: none FAST Exam FAST Exam 1: Fluid in Morison's pouch: No Fluid in Splenorenal Junction: No Fluid around bladder, Transverse view: No Fluid around bladder, Sagittal view: No Fluid in Pericardial Sac: No Gross Wall Motion Abnormality: No Study normal for this patient: Yes Images saved for further review: No Medical Decision Making Medical Decision Making MDM Narrative: 66 yo male with PMH of HTN, HLD, COPD not on home O2, edema, recurrent leg ulcers, DM, cellulitis, chronic pain, PPM, afib on coumadin last ECHO 12/2021 EF 55 - 60% here with rapid afib, suspect rhabdo, possible sepsis, trauma or ICH, patient reports no syncopal event to me and that he got stuck on the ground - IVF 30cc/kg bolus ordered, tylenol, IV dilt bolus and drip, FAST exam, mitchell CT scan no contrast, empiric ceftriaxone, will involve ICU early - notified his HCP Differential Diagnosis Differential Diagnoses: The differential diagnosis associated with the pres entation includes UTI, pneumonia, trauma, contusion, rhabdomyolysis, rapid afib Admission/Observation Consideration of admission/observation: Escalation of care including admission/observation considered Consult Healthcare Provider Management of the patient was discussed with: Access Clerk (ornamental plasterer helper) Lab Data [facility] Lab Attestation statement: I reviewed the patient's lab results. 04/07/22 11:40 Labs: Lab Results 04/07/22 04/07/22 04/07/22 Range/Units 11:37 11:40 11:40 VBG pH (7.32-7.43) VBG pCO2 mmHg VBG pO2 mmHg VBG HCO3 (22-26) mmol/L VBG O2 Saturation % VBG Base Excess mmol/L Sodium 137 (135-145) mmol/L Potassium 4.1 (3.3-5.1) mmol/L Chloride 93 L (96-108) mmol/L Carbon Dioxide 19 L (22-29) mmol/L Anion Gap 29 H (12-20) BUN 73 H (9-16) mg/dL Creatinine 3.88 H (0.5-1.4) mg/dL Estim Creat Clear Calc TNP Estimated GFR 16 POC Glucose 224 H (60-115) mg/dL Random Glucose 227 H (60-115) mg/dL Lactic Acid 6.1 H* (0.5-2.0) mmol/L Calcium 8.6 (8.4-10.2) mg/dL Magnesium 2.5 (1.6-2.6) mg/dL Total Bilirubin 4.4 H (0.0-1.0) mg/dL Direct Bilirubin 3.0 H (0.0-0.5) mg/dL AST 261 H (5-37) U/L ALT 167 H (0-40) U/L Alkaline Phosphatase 79 (39-117) U/L Total Creatine Kinase 7645 H (38-174) U/L Troponin I High Sens (<3.5-35.0) ng/L C-Reactive Protein 59.81 H (< or = 0.50) mg/dL Total Protein 5.7 L (6.5-8.0) g/dL Albumin 2.9 L (3.5-5.0) g/dL Lipase 17 (8-78) U/L Procalcitonin ng/mL Urine Color Urine Appearance Urine pH (5.0-9.0) Ur Specific [place] (1.005-1.025) Urine Protein (Neg-Trace) mg/dL Urine Glucose (UA) (Negative) mg/dL Urine Ketones (Negative) mg/dL Urine Blood (Negative) Urine Nitrite (Negative) Ur Leukocyte Esterase (Negative) Urine RBC (0-2) /HPF Urine WBC (0-5) /HPF Ur Squamous Epith Cells (0-2) /HPF Urine Bacteria (None Seen) Hyaline Casts (0-2) /LPF Acetaminophen < 17 (<30) mcg/mL Ethyl Alcohol mg/dL Acetone, Qual Small H (Negative) COVID-19 (FLEX) (Negative) COVID-19 Clin Com Influenza Type A (PCR) (Negative) Influenza Type B (PCR) (Negative) RSV RNA Qual (PCR) (Negative) SARS-CoV-2 RNA (RT-PCR) (Negative) 04/07/22 04/07/22 04/07/22 Range/Units 11:40 11:40 11:40 VBG pH (7.32-7.43) VBG pCO2 mmHg VBG pO2 mmHg VBG HCO3 (22-26) mmol/L VBG O2 Saturation % VBG Base Excess mmol/L Sodium (135-145) mmol/L Potassium (3.3-5.1) mmol/L Chloride (96-108) mmol/L Carbon Dioxide (22-29) mmol/L Anion Gap (12-20) BUN (9-16) mg/dL Creatinine (0.5-1.4) mg/dL Estim Creat Clear Calc Estimated GFR POC Glucose (60-115) mg/dL Random Glucose (60-115) mg/dL Lactic Acid (0.5-2.0) mmol/L Calcium (8.4-10.2) mg/dL Magnesium (1.6-2.6) mg/dL Total Bilirubin (0.0-1.0) mg/dL Direct Bilirubin (0.0-0.5) mg/dL AST (5-37) U/L ALT (0-40) U/L Alkaline Phosphatase (39-117) U/L Total Creatine Kinase (38-174) U/L Troponin I High Sens 366.3 H* (<3.5-35.0) ng/L C-Reactive Protein (< or = 0.50) mg/dL Total Protein (6.5-8.0) g/dL Albumin (3.5-5.0) g/dL Lipase (8-78) U/L Procalcitonin 32.58 ng/mL Urine Color Urine Appearance Urine pH (5.0-9.0) Ur Specific [place] (1.005-1.025) Urine Protein (Neg-Trace) mg/dL Urine Glucose (UA) (Negative) mg/dL Urine Ketones (Negative) mg/dL Urine Blood (Negative) Urine Nitrite (Negative) Ur Leukocyte Esterase (Negative) Urine RBC (0-2) /HPF Urine WBC (0-5) /HPF Ur Squamous Epith Cells (0-2) /HPF Urine Bacteria (None Seen) Hyaline Casts (0-2) /LPF Acetaminophen (<30) mcg/mL Ethyl Alcohol < 10 mg/dL Acetone, Qual (Negative) COVID-19 (FLEX) (Negative) COVID-19 Clin Com Influenza Type A (PCR) (Negative) Influenza Type B (PCR) (Negative) RSV RNA Qual (PCR) (Negative) SARS-CoV-2 RNA (RT-PCR) (Negative) 04/07/22 04/07/22 04/07/22 Range/Units 11:40 11:40 11:51 VBG pH 7.36 (7.32-7.43) VBG pCO2 35 mmHg VBG pO2 32 mmHg VBG HCO3 20 L (22-26) mmol/L VBG O2 Saturation 33.0 % VBG Base Excess -4.0 mmol/L Sodium (135-145) mmol/L Potassium (3.3-5.1) mmol/L Chloride (96-108) mmol/L Carbon Dioxide (22-29) mmol/L Anion Gap (12-20) BUN (9-16) mg/dL Creatinine (0.5-1.4) mg/dL Estim Creat Clear Calc Estimated GFR POC Glucose (60-115) mg/dL Random Glucose (60-115) mg/dL Lactic Acid (0.5-2.0) mmol/L Calcium (8.4-10.2) mg/dL Magnesium (1.6-2.6) mg/dL Total Bilirubin (0.0-1.0) mg/dL Direct Bilirubin (0.0-0.5) mg/dL AST (5-37) U/L ALT (0-40) U/L Alkaline Phosphatase (39-117) U/L Total Creatine Kinase (38-174) U/L Troponin I High Sens (<3.5-35.0) ng/L C-Reactive Protein (< or = 0.50) mg/dL Total Protein (6.5-8.0) g/dL Albumin (3.5-5.0) g/dL Lipase (8-78) U/L Procalcitonin ng/mL Urine Color Dark Yellow Urine Appearance Cloudy Urine pH 5.0 (5.0-9.0) Ur Specific [place] 1.020 (1.005-1.025) Urine Protein 300 (3+) H (Neg-Trace) mg/dL Urine Glucose (UA) 500 H (Negative) mg/dL Urine Ketones Trace (Negative) mg/dL Urine Blood Large (3+) H (Negative) Urine Nitrite Positive H (Negative) Ur Leukocyte Esterase Trace H (Negative) Urine RBC >20 H (0-2) /HPF Urine WBC 0-5 (0-5) /HPF Ur Squamous Epith Cells 3-5 (0-2) /HPF Urine Bacteria None Seen (None Seen) Hyaline Casts 0-2 (0-2) /LPF Acetaminophen (<30) mcg/mL Ethyl Alcohol mg/dL Acetone, Qual (Negative) COVID-19 (FLEX) (Negative) COVID-19 Clin Com Influenza Type A (PCR) NEGATIVE (Negative) Influenza Type B (PCR) NEGATIVE (Negative) RSV RNA Qual (PCR) NEGATIVE (Negative) SARS-CoV-2 RNA (RT-PCR) NEGATIVE (Negative) 04/07/22 Range/Units 12:52 VBG pH (7.32-7.43) VBG pCO2 mmHg VBG pO2 mmHg VBG HCO3 (22-26) mmol/L VBG O2 Saturation % VBG Base Excess mmol/L Sodium (135-145) mmol/L Potassium (3.3-5.1) mmol/L Chloride (96-108) mmol/L Carbon Dioxide (22-29) mmol/L Anion Gap (12-20) BUN (9-16) mg/dL Creatinine (0.5-1.4) mg/dL Estim Creat Clear Calc Estimated GFR POC Glucose (60-115) mg/dL Random Glucose (60-115) mg/dL Lactic Acid (0.5-2.0) mmol/L Calcium (8.4-10.2) mg/dL Magnesium (1.6-2.6) mg/dL Total Bilirubin (0.0-1.0) mg/dL Direct Bilirubin (0.0-0.5) mg/dL AST (5-37) U/L ALT (0-40) U/L Alkaline Phosphatase (39-117) U/L Total Creatine Kinase (38-174) U/L Troponin I High Sens (<3.5-35.0) ng/L C-Reactive Protein (< or = 0.50) mg/dL Total Protein (6.5-8.0) g/dL Albumin (3.5-5.0) g/dL Lipase (8-78) U/L Procalcitonin ng/mL Urine Color Urine Appearance Urine pH (5.0-9.0) Ur Specific [place] (1.005-1.025) Urine Protein (Neg-Trace) mg/dL Urine Glucose (UA) (Negative) mg/dL Urine Ketones (Negative) mg/dL Urine Blood (Negative) Urine Nitrite (Negative) Ur Leukocyte Esterase (Negative) Urine RBC (0-2) /HPF Urine WBC (0-5) /HPF Ur Squamous Epith Cells (0-2) /HPF Urine Bacteria (None Seen) Hyaline Casts (0-2) /LPF Acetaminophen (<30) mcg/mL Ethyl Alcohol mg/dL Acetone, Qual (Negative) COVID-19 (FLEX) Negative (Negative) COVID-19 Clin Com See Note Influenza Type A (PCR) (Negative) Influenza Type B (PCR) (Negative) RSV RNA Qual (PCR) (Negative) SARS-CoV-2 RNA (RT-PCR) (Negative) ABG Data Attestation ABG: I personally reviewed and interpreted this ABG as follows: Independent Interpretation I performed an independent interpretation of an: EKG and CT Scan Interpretation: Rate: 183 Rhythm: afib with RVR [place]: normal Normal P waves. Normal LYNETTE. Normal QRS complex. ST T wave : no KANE, nonspecific qTC: normal prior studies: changed from prior The study has been interpreted contemporaneously by me. . Independent Historian Clinical information obtained from an independent historian. History obtained from or confirmed by: Friend External Record Review External record reviewed: Office record Critical Care Time Critical Care Time Critical Care Time: Yes Total Critical Care Time: 90 Attestation: O2, bipap, discussions with patient and HCP, repeat bedside assessments, self review of images, IV antibiotics, IV bolus of rate control medications, transfer and admit to ICU I attest to this time spent taking care of the patient Discharge Plan Discharge Clinical Impression: Rhabdomyolysis, Acute renal failure, Elevated liver enzymes, Elevated troponin, Atrial fibrillation with RVR Cellulitis Qualifiers: Site of cellulitis: extremity Site of cellulitis of extremity: lower extremity Laterality: left Qualified Code(s): L03.116 - Cellulitis of left lower limb Patient Disposition: Admitted As Inpatient
[2022-04-07 11:57] LABS: VBG HCO3 20 mmol/L (22-26); VBG pCO2 35 mmHg; VBG pH 7.36 (7.32-7.43); VBG pO2 32 mmHg
[2022-04-07 11:58] LABS: Venous Blood Gas Refer to POC result
[2022-04-07 12:10] LABS: Appearance Urine Cloudy; Color Urine Dark Yellow; Glucose Urine UA 500 mg/dL (Negative); Leukocyte Esterase Urine Trace (Negative); Nitrite Urine Positive (Negative); UMIC TRIGGER UACC YES; Urine Blood Large (3+) (Negative); Urine Ketones Trace mg/dL (Negative); Urine Protein 300 (3+) mg/dL (Neg-Trace)
[2022-04-07] MEDS: dilTIAZem HCL 125 MG in 0.9 % Sodium Chloride 100 ML 10 MG IVCONT (12:21)
[2022-04-07 12:27] LABS: Lactic Acid 6.1 mmol/L (0.5-2.0)
[2022-04-07 12:28] LABS: Ethanol < 10 mg/dL
[2022-04-07 12:29] LABS: Bacteria Urine None Seen (None Seen); Hyaline Casts Urine 0-2 /LPF (0-2); RBC Urine >20 /HPF (0-2); UACC Culture Trigger YES; WBC Urine 0-5 /HPF (0-5)
[2022-04-07] MEDS: Acetaminophen Supp 650 MG SUPP.RECT PR (12:36)
[2022-04-07] MEDS: 0.9 % Sodium Chloride 1,000 ML 999 ML IV ×2 (12:37→13:27)
[2022-04-07] MEDS: dilTIAZem HCL 50 MG/10 ML VIAL 10 MG IVPUSH ×2 (12:39)
[2022-04-07 12:42] LABS: Troponin-I High Sensitivity 366.3 ng/L (<3.5-35.0)
--- NOTE | 2022-04-07 12:43 | PC.NURSE ---
THIS RN SPOKE WITH SISTER KATERINA WEBSTER [phone] PERMISSION GIVEN BY PATIENT TO SHARE INFORMATION. SISTER UPDATED ON PATIENT'S CONDITION AND SEVERITY OF ILLNESS. SISTER STATES THAT PATIENT IS A MANDAEISM AND SHOULD NOT RECEIVE ANY BLOOD PRODUCTS. SHE ALSO REPORTS THAT THERE SHOULD BE NO MOTION STUDY ANALYST LIFE SAVING INTERVENTIONS.
[2022-04-07 12:49] LABS: Influenza A PCR NEGATIVE (Negative); Influenza B PCR NEGATIVE (Negative); Resp Syncy Virus RNA Qual PCR NEGATIVE (Negative); SARS COV2 PCR INHOUSE NEGATIVE (Negative)
[2022-04-07] MEDS: cefTRIAXone sodium 1 GM in 0.9 % Sodium Chloride 50 ML IV (12:58)
[2022-04-07 13:02] LABS: Acetaminophen LAB < 17 mcg/mL (<30); Alanine Aminotransferase 167 U/L (0-40); Albumin Level 2.9 g/dL (3.5-5.0); Alkaline Phosphatase 79 U/L (39-117); Anion Gap 29 (12-20); Aspartate Amino Transferase 261 U/L (5-37); Bilirubin Total 4.4 mg/dL (0.0-1.0); Blood Urea Nitrogen 73 mg/dL (9-16); Calcium 8.6 mg/dL (8.4-10.2); Carbon Dioxide 19 mmol/L (22-29); Chloride 93 mmol/L (96-108); Estimated Glomerular Filt Rate 16; Glucose Random 227 mg/dL (60-115); Lipase 17 U/L (8-78); Magnesium 2.5 mg/dL (1.6-2.6); Potassium 4.1 mmol/L (3.3-5.1); Sodium 137 mmol/L (135-145)
[2022-04-07 13:03] LABS: Total Protein 5.7 g/dL (6.5-8.0)
[2022-04-07 13:13] LABS: Acetone, serum QL Small (Negative)
[2022-04-07 13:16] LABS: COVID-19 Test Negative (Negative); IDNOW Serial# BCCEAD1C
[2022-04-07] MEDS: 0.9 % Sodium Chloride 500 ML IV (13:26)
[2022-04-07] MEDS: Metoprolol Tartrate 5 MG/5 ML VIAL 10 MG IVPUSH (13:27)
--- NOTE | 2022-04-07 13:30 | PC.NURSE ---
patient presented to Ed after being found down at home for two days . Patient alert to self and situation . patient placed on 8 liters oxy max to maintain a oxygen level above 95% . patient breathing labored . lungs diminished throughout . skin has evidence of third spacing . swollen pockets of fluid above eyelids . bruising noted on right side of body .small blisters noted on rights side of body . left foot has red discoloration . Parks placed , yas colored urine . skin has IV placed in Left AC. patient to CT for images . patient started on a diltiazem drip at 1230 at 10 mg /hr . patient hr still 180-200 bpm. at 1245 provider made aware of titrating drip up to 15mg /hr. . Dr Russ at bedside for echo . DR. Russ IVP 10mg Lopressor to decrease HR . IV antibiotics hung as ordered . Patient HR 153 after Lopressor administration by provider . patient aware of plan of care .
[2022-04-07 13:31] LABS: Glucose, Whole Blood 224 mg/dL (60-115)
[2022-04-07 13:33] LABS: C Reactive Protein 59.81 mg/dL (< or = 0.50)
[2022-04-07 13:38] LABS: Procalcitonin 32.58 ng/mL
--- NOTE | 2022-04-07 13:43 | PC.NURSE ---
icu dr fu calling ed to alert that imagng for c-spine clear, may remove c-collar at this time. this rn removed pt c-collar and placed pillow under pt head, tolerated well, sts feeling more comfortable at this time.
[2022-04-07 13:52] LABS: Reflex Lactate? Lactic Acid Added
--- NOTE | 2022-04-07 14:21 | P.HPCC_ITS ---
History of Present Illness Date of Service: 04/07/22 Attending physician on admission: Marilu Delgado Chief Complaint: Profoundly weak with multiple injuries from head to toe/found on floor A 66-year-old morbidly obese male type 2 diabetic hyperlipidemic and hypertensive with a permanent dual-chamber pacemaker in place and apparently history of permanent atrial fibrillation presents having been found on the floor where he claims he put himself although he has got significant soft tissue in juries all over his body overlying his chest wall his abdomen a clearly there is a scalp hematoma and abrasions of his lower extremities with evidence of of could probably chronic stasis dermatitis as well can not completely rule out the possibility of an underlying cellulitis but noted to have a positive anion gap metabolic acidosis positive lactate acute kidney injury with creatinine of about 3 and half in BUN of 70 whereby he was chronically between 1.41.5 and rapid atrial fibrillation with a rate of 200 evidence of left ventricular enlargement with minor nonspecific ST-T changes but significantly tachypneic but awake communicative moving all 4 extremities and cervical spine was intact sore able to remove the cervical collar The rapid atrial fibrillation/flutter Ann down with 20 mg of IV Cardizem followed by 15 milligram/hour drip and still required 10 mg of IV Lopressor to bring rate down from 200 to about 130 which relieves some of the tachypnea giving us room for fluids but clearly despite the sepsis but given the atrial fibrillation and as well as the CHF from myocardial dysfunction were not going to be able to apply 30 cc/kilos of IV fluid at as a bolus were definitely going to need to place a central line for CVP measurement and probably give her foot give him fluid according to us pressures but in the interim support blood pressure with vasopressin to preserve and renal blood flow and splanchnic flow in general as we cover him and empirically for sepsis right now of unknown origin potentially urinary tract potentially even cellulitis Bedside echo with very significant diffuse hypokinesis but in part it is artifactual from the rapid ventricular rate but this significant left atrial dilatation with significant at least 2+ moderate mitral regurgitation but the aortic valve is not stenotic Urinalysis thus far showing significant proteinuria as well as red cells and positive blood reaction which might be partly myoglobin in origin so clearly volume needs to be given and renal blood flow needs to be preserved to resolve the rhabdomyolysis Review of Systems Review of Systems: Yes Unobtainable due to mental status PMFSH Past Medical History Medical History Atrial fibrillation Cardiac pacemaker in situ Chronic heart failure with preserved ejection fraction (HFpEF) Chronic pain syndrome Controlled diabetes mellitus with diabetic polyneuropathy COPD (chronic obstructive pulmonary disease) Diabetes mellitus Diabetic foot Lyme disease Obesity Obstructive sleep apnea Screening for prostate cancer Family History Family History Mother Esophagus cancer Father Esophagus cancer Brother Pancreatic cancer Sister Breast cancer Sister A-fib Surgical History Surgical History History of colonoscopy History of total knee replacement Hx of left knee surgery Social History Social History Household Members: Unknown / Unable to assess Housing: Unknown / Unable to assess Unable to assess alcohol history related to: Unable to respond Alcohol intake: never Patient Tobacco Use Status: Never used Tobacco e-Cigarette/Vaping Use: Never Used Second Hand Smoke Exposure: No Use of substances other than those prescribed or required for medical reasons: Unable to respond Currently Displaying Signs/Symptoms of Drug Intoxication Withdrawal: No Advance Directives: No Advance Directives Information Provided: No Nutrition Risks: On aspiration precautions service: No Current occupational status: disabled Current occupation: Right Handed Cognitive needs: Yes (cane) Hearing needs: No Vision needs: No Meds Allergies Allergy/AdvReac Type Severity Reaction Status Date / Time tramadol Allergy Severe DIFF Verified 04/02/22 11:05 BREATHING RASH amiodarone Allergy Unknown ELEVATED Verified 04/02/22 11:05 LFTs, BLURRY VISION, SOB atorvastatin Allergy Unknown MYALGIA Verified 04/02/22 11:05 Active Medications: Current Medications Diltiazem HCl 125 mg/ Sodium (Chloride) 125 mls @ 0 mls/hr IVCONT .Q0M JUAN DANIEL; Protocol Last Admin: 04/07/22 12:21 Dose: 10 mg/hr, 10 mls/hr Sodium Bicarbonate 100 meq/ (Dextrose) 1,000 mls @ 100 mls/hr IV .Q10H JUAN DANIEL Vancomycin HCl (Vancomycin/Ns) 2,000 mg in 520 mls @ 260 mls/hr IV ONCE ONE Stop: 04/07/22 16:01 Lactated Ringer's (Lr) 1,000 mls @ 100 mls/hr IVCONT .Q10H JUAN DANIEL Vasopressin (Vasostrict) 20 unit in 100 mls @ 12 mls/hr IV .Q8H20M JUAN DANIEL Insulin Human Regular (Myxredlin) 100 unit in 100 mls @ 0 mls/hr IVCONT .Q0M [facility], 1928–1983; Protocol Levothyroxine Sodium (Levothyroxine Sodium 100 Mcg/5 Ml Vial) 37.5 mcg IVPUSH DAILY@0600 FOR[facility]LY [facility], 1928–1983 Pharmacy Consult (Consult Rx Perform Med Rec) 1 each MISCELLANE ONCE PRN PRN Reason: Consult order Pharmacy Consult (Consult Rx Vancomycin Dosing) 1 each MISCELLANE DAILY PRN PRN Reason: Consult order Home Medications Medication Instructions Recorded Confirmed Last Taken Type albuterol sulfate 90 mcg/actuation 2 puff inhalation Q6H PRN Wheezing 12/27/19 04/07/22 04/05/22 History aerosol inhaler warfarin 7.5 mg tablet (Jantoven) 0.5 tab PO BRENNAN 04/07/22 04/07/22 04/05/22 History warfarin 7.5 mg tablet (Jantoven) 1 tab PO MOTUWETHFRSA 04/07/22 04/07/22 04/05/22 History Physical Exam Vital Signs: Vital Signs: Last Vital Signs Temp 100.9 F H 04/07/22 13:38 Pulse 143 H 04/07/22 13:33 Resp 38 H 04/07/22 13:33 BP 103/56 L 04/07/22 13:33 Pulse Ox 97 04/07/22 13:33 O2 Del Method 04/07/22 13:33 Oxygen Flow Rate 9 04/07/22 13:10 BMI result Body Mass Index 51.7 Blood pressure is marginal the patient is awake and oriented but clearly in encumbered Skin showing good chronic stasis changes in lower extremities with areas of probable broken blisters with some surrounding cellulitis in both lower extremities and exquisitely sensitive to the touch but no palpable crepitus Bedside echo during the very rapid atrial fibrillation showing a poor diffuse wall motion which I am sure in large part is due to the rapid atrial fibrillation but no primary valve no pericardial disease Abdomen is soft no palpable organomegaly and abdominal CT no primary pathology noted Lungs with diminished breath sounds bilaterally and a breathing with significant prolongation of expiratory time and diaphragmatic effort and markedly tachypneic Results Labs 04/07/22 11:40 Labs: Laboratory Results - last 24 hr 04/07/22 04/07/22 04/07/22 11:37 11:40 11:40 VBG pH VBG pCO2 VBG pO2 VBG HCO3 VBG O2 Saturation VBG Base Excess Anion Gap 29 H Estim Creat Clear Calc TNP Estimated GFR 16 POC Glucose 224 H Random Glucose 227 H Lactic Acid 6.1 H* Calcium 8.6 Magnesium 2.5 Total Bilirubin 4.4 H Direct Bilirubin 3.0 H AST 261 H ALT 167 H Alkaline Phosphatase 79 Total Creatine Kinase 7645 H Troponin I High Sens C-Reactive Protein 59.81 H Total Protein 5.7 L Albumin 2.9 L Lipase 17 Procalcitonin Urine Color Urine Appearance Urine pH Ur Specific Llewellyn Urine Protein Urine Glucose (UA) Urine Ketones Urine Blood Urine Nitrite Ur Leukocyte Esterase Urine RBC Urine WBC Ur Squamous Epith Cells Urine Bacteria Hyaline Casts Acetaminophen < 17 Ethyl Alcohol Acetone, Qual Small H COVID-19 (FLEX) COVID-19 Clin Com Influenza Type A (PCR) Influenza Type B (PCR) RSV RNA Qual (PCR) SARS-CoV-2 RNA (RT-PCR) 04/07/22 04/07/22 04/07/22 11:40 11:40 11:40 VBG pH VBG pCO2 VBG pO2 VBG HCO3 VBG O2 Saturation VBG Base Excess Anion Gap Estim Creat Clear Calc Estimated GFR POC Glucose Random Glucose Lactic Acid Calcium Magnesium Total Bilirubin Direct Bilirubin AST ALT Alkaline Phosphatase Total Creatine Kinase Troponin I High Sens 366.3 H* C-Reactive Protein Total Protein Albumin Lipase Procalcitonin 32.58 Urine Color Urine Appearance Urine pH Ur Specific Llewellyn Urine Protein Urine Glucose (UA) Urine Ketones Urine Blood Urine Nitrite Ur Leukocyte Esterase Urine RBC Urine WBC Ur Squamous Epith Cells Urine Bacteria Hyaline Casts Acetaminophen Ethyl Alcohol < 10 Acetone, Qual COVID-19 (FLEX) COVID-19 Clin Com Influenza Type A (PCR) Influenza Type B (PCR) RSV RNA Qual (PCR) SARS-CoV-2 RNA (RT-PCR) 04/07/22 04/07/22 04/07/22 11:40 11:40 11:51 VBG pH 7.36 VBG pCO2 35 VBG pO2 32 VBG HCO3 20 L VBG O2 Saturation 33.0 VBG Base Excess -4.0 Anion Gap Estim Creat Clear Calc Estimated GFR POC Glucose Random Glucose Lactic Acid Calcium Magnesium Total Bilirubin Direct Bilirubin AST ALT Alkaline Phosphatase Total Creatine Kinase Troponin I High Sens C-Reactive Protein Total Protein Albumin Lipase Procalcitonin Urine Color Dark Yellow Urine Appearance Cloudy Urine pH 5.0 Ur Specific Llewellyn 1.020 Urine Protein 300 (3+) H Urine Glucose (UA) 500 H Urine Ketones Trace Urine Blood Large (3+) H Urine Nitrite Positive H Ur Leukocyte Esterase Trace H Urine RBC >20 H Urine WBC 0-5 Ur Squamous Epith Cells 3-5 Urine Bacteria None Seen Hyaline Casts 0-2 Acetaminophen Ethyl Alcohol Acetone, Qual COVID-19 (FLEX) COVID-19 Clin Com Influenza Type A (PCR) NEGATIVE Influenza Type B (PCR) NEGATIVE RSV RNA Qual (PCR) NEGATIVE SARS-CoV-2 RNA (RT-PCR) NEGATIVE 04/07/22 12:52 VBG pH VBG pCO2 VBG pO2 VBG HCO3 VBG O2 Saturation VBG Base Excess Anion Gap Estim Creat Clear Calc Estimated GFR POC Glucose Random Glucose Lactic Acid Calcium Magnesium Total Bilirubin Direct Bilirubin AST ALT Alkaline Phosphatase Total Creatine Kinase Troponin I High Sens C-Reactive Protein Total Protein Albumin Lipase Procalcitonin Urine Color Urine Appearance Urine pH Ur Specific Llewellyn Urine Protein Urine Glucose (UA) Urine Ketones Urine Blood Urine Nitrite Ur Leukocyte Esterase Urine RBC Urine WBC Ur Squamous Epith Cells Urine Bacteria Hyaline Casts Acetaminophen Ethyl Alcohol Acetone, Qual COVID-19 (FLEX) Negative COVID-19 Clin Com See Note Influenza Type A (PCR) Influenza Type B (PCR) RSV RNA Qual (PCR) SARS-CoV-2 RNA (RT-PCR) Imaging Radiologist's Impressions: Impressions Abdomen/Pelvis CT 04/07/22 12:32 IMPRESSION: 1. Evaluation is limited secondary to respiratory motion artifact. 2. No acute process of the chest, abdomen, or pelvis identified. 3. Bilateral renal hypodensities demonstrating fluid attenuation statistically representing cysts the largest in the anterior aspect of the left renal upper pole measuring 7.5 cm. 4. Bladder decompressed with Parks catheter balloon in situ. 5. Prostate measures up to 4.2 cm with coarse calcifications within its body. 6. Osteopenia. Cervical Spine CT 04/07/22 12:32 IMPRESSION: 1. No acute intracranial pathology. 2. Right-sided soft tissue edema/swelling predominantly involving the temporal bone and lateral right orbit without underlying bony defect. EXAMINATION: Noncontrast CT scan of the cervical spine. INDICATION: Trauma COMPARISON: None. TECHNIQUE: Helical, multidetector axial images were obtained from the occiput to the upper thorax. Coronal and sagittal reformats of the cervical spine were provided for interpretation. DLP: 4120 mGy-cm FINDINGS: No acute fractures or dislocations of the cervical spine are seen. Multilevel degenerative changes of the cervical spine. Subchondral cystic changes involving the base of the dens left side Anatomic alignment and positioning of the vertebral bodies and posterior elements is noted. The atlantoaxial joint and craniovertebral articulations are normal without evidence of subluxation. There is no prevertebral soft tissue swelling. The visualized portions of the lung apices and mediastinum are unremarkable. IMPRESSION: 1. No acute visible fracture or dislocation. 2. Multilevel degenerative changes of the cervical spine. Chest CT 04/07/22 12:32 IMPRESSION: 1. Evaluation is limited secondary to respiratory motion artifact. 2. No acute process of the chest, abdomen, or pelvis identified. 3. Bilateral renal hypodensities demonstrating fluid attenuation statistically representing cysts the largest in the anterior aspect of the left renal upper pole measuring 7.5 cm. 4. Bladder decompressed with Parks catheter balloon in situ. 5. Prostate measures up to 4.2 cm with coarse calcifications within its body. 6. Osteopenia. Head CT 04/07/22 12:32 IMPRESSION: 1. No acute intracranial pathology. 2. Right-sided soft tissue edema/swelling predominantly involving the temporal bone and lateral right orbit without underlying bony defect. EXAMINATION: Noncontrast CT scan of the cervical spine. INDICATION: Trauma COMPARISON: None. TECHNIQUE: Helical, multidetector axial images were obtained from the occiput to the upper thorax. Coronal and sagittal reformats of the cervical spine were provided for interpretation. DLP: 4120 mGy-cm FINDINGS: No acute fractures or dislocations of the cervical spine are seen. Multilevel degenerative changes of the cervical spine. Subchondral cystic changes involving the base of the dens left side Anatomic alignment and positioning of the vertebral bodies and posterior elements is noted. The atlantoaxial joint and craniovertebral articulations are normal without evidence of subluxation. There is no prevertebral soft tissue swelling. The visualized portions of the lung apices and mediastinum are unremarkable. IMPRESSION: 1. No acute visible fracture or dislocation. 2. Multilevel degenerative changes of the cervical spine. Assessment and Plan (1) Rhabdomyolysis: Status: Acute (2) Acute renal failure: Status: Acute (3) Elevated liver enzymes: Status: Acute (4) Elevated troponin: Status: Acute (5) Cellulitis: Qualifiers: Laterality: left Site of cellulitis: extremity Site of cellulitis of extremity: lower extremity Qualified Code(s): L03.116 - Cellulitis of left lower limb Status: Acute (6) Atrial fibrillation with RVR: Status: Acute (7) HLD (hyperlipidemia): Qualifiers: Hyperlipidemia type: mixed hyperlipidemia Qualified Code(s): E78.2 - Mixed hyperlipidemia Status: Acute (8) HTN (hypertension): Qualifiers: Hypertension type: primary hypertension Qualified Code(s): I10 - Essential (primary) hypertension Status: Acute (9) COPD (chronic obstructive pulmonary disease): Qualifiers: COPD type: chronic bronchitis Chronic bronchitis type: simple Qualified Code(s): J41.0 - Simple chronic bronchitis Status: Acute (10) Bilateral leg edema: Status: Acute (11) Moderate major depression: Status: Acute (12) Diabetic foot: Status: Acute (13) Leg ulcer: Status: Acute (14) Chronic heart failure with preserved ejection fraction (HFpEF): Status: Acute (15) Cardiac pacemaker in situ: Status: Acute (16) Diabetes mellitus: Qualifiers: Diabetes mellitus type: type 2 Diabetes mellitus retirement insulin use: without classified advertising clerk use Diabetes mellitus complication status: with hyperglycemia Qualified Code(s): E11.65 - Type 2 diabetes mellitus with hyperglycemia Status: Acute (17) Controlled diabetes mellitus with diabetic polyneuropathy: Status: Acute (18) Cellulitis: Status: Acute (19) Chronic wound of extremity: Status: Acute (20) Chronic pain syndrome: Status: Acute (21) Current use of anticoagulant therapy: Status: Acute (22) Atrial fibrillation: Qualifiers: Atrial fibrillation type: longstanding persistent Qualified Code(s): I48.11 - Longstanding persistent atrial fibrillation Status: Acute (23) Gout: Status: Acute (24) Primary osteoarthritis of knees, bilateral: Status: Acute Plan Clinically this patient presents with what appears to be septic shock probably stemming from cellulitis but I do have concerns of possible deeper seated infection although there is no palpable crepitus but I am covering him with vancomycin now in addition to the dose of ceftriaxone given in the emergency room and based on preliminary Gram stains will modify antibiotics but there is no parker given his his stage IV level of acute kidney injury and marked oliguria at this point Placement of central line for CVP monitoring and because of what also appears to be concomitant heart failure again in large part from the rapidity of the atrial fibrillation but there probably is some myopathy and the patient's the no demonstration of such by his breathing pattern so we need to CVP to follow his fluid management and also to be able to deliver fluid at some rate to help him with his rhabdomyolysis They also think that he might be in DIC given the elevation of the prothrombin time as well as the PTT and it looks like he might be developing progressive consumption of platelets So we will infuse fluid by the CVP as allowed support his work of breathing with BiPAP and that in itself should help to diminish some of the rapid heart rate in the atrial fibrillation but I will go up to a full mg of digoxin over the course of the next 12 hours as well as p.r.n. use of IV beta blockade superimposed on a background 15 milligram/hour drip of IV diltiazem and I will support his blood pressure with vasopressin the no to maintain splanchnic perfusion Time Spent With Patient Time: Total time managing care of this patient today 75____ minutes.
[2022-04-07 14:48] LABS: Glucose, Whole Blood 205 mg/dL (60-115)
[2022-04-07] MEDS: Lactated Ringers 1,000 ML 100 ML IVCONT (14:48)
[2022-04-07 14:51] LABS: Hematocrit 39.1 % (42.0-52.0); Hemoglobin 12.9 g/dl (14.0-18.0); Mean Corpuscular Hemoglobin 25.4 pg (27.0-33.0); Red Blood Count 5.08 X10*6/uL (4.60-5.80); Red Cell Distribution Width 17.8 % (11.0-16.0); White Blood Count 15.3 X10*3/uL (4.8-10.8)
[2022-04-07] MEDS: Sodium Bicarbonate 8.4% 100 MEQ in Dextrose 5 % 900 ML IV (14:53)
[2022-04-07] MEDS: Insulin Regular/NS 100 UNIT/100 ML PLAST..BAG IVCONT (14:54)
[2022-04-07 15:10] LABS: INTERNATIONAL NORM RATIO 3.5 (0.9-1.1); Prothrombin Time 42.8 SEC (10.0-13.1)
[2022-04-07 15:20] LABS: B Type Natriuretic Peptide 272 pg/mL (<100)
[2022-04-07 15:25] LABS: Partial Thromboplastin Time 93.6 SEC (26.0-36.4)
[2022-04-07 15:40] LABS: ~Lactic Acid-LAB USE ONLY 4.6 mmol/L (0.5-2.0)
[2022-04-07] MEDS: Vasopressin 20 UNIT/100 ML INFUS..BTL 12 UNIT IV ×2 (15:51→21:53)
[2022-04-07 15:56] LABS: Band Neutrophils Percent 11 % (3-5); Lymphocytes Absolute Manual 0.2 X10*3/uL (1.2-4.9); Lymphocytes Percent Manual 1 % (20-40); Monocytes Absolute Manual 0.8 X10*3/uL (0.1-1.2); Monocytes Percent Manual 5 % (2-11); Neutrophils Absolute Manual 14.4 X10*3/uL (2.0-8.3); Neutrophils Percent Manual 83 % (45-73)
[2022-04-07 15:57] LABS: Dohle Bodies PRESENT; Microcytosis 1+ (5-14) /OIF; RBC Morphology NOTED; Toxic Granulation PRESENT; Toxic Vacuolation PRESENT
[2022-04-07 15:58] LABS: Burr Cells 3+ (>5) /OIF
[2022-04-07 16:00] LABS: Platelet Estimate DECREASED (NORMAL); Platelet Morphology Comment NORMAL
[2022-04-07 16:14] LABS: Glucose, Whole Blood 202 mg/dL (60-115)
[2022-04-07 16:27] LABS: Free T4 (Free Thyroxine) 0.73 ng/dL (0.71-1.85); Thyroid Stimulating Hormone 2.07 uIU/mL (0.32-4.0)
[2022-04-07] MEDS: Digoxin 0.5 MG/2 ML AMPUL 0.25 MG IVPUSH ×3 (16:31→20:01)
[2022-04-07 16:42] LABS: Reflex Lactate? 2 Y
[2022-04-07] MEDS: Metoprolol Tartrate 5 MG/5 ML VIAL IVPUSH ×2 (17:03→22:25)
[2022-04-07 17:07] LABS: Glucose, Whole Blood 199 mg/dL (60-115)
[2022-04-07 17:52] LABS: ~Lactic Acid-LAB USE ONLY 4.3 mmol/L (0.5-2.0)
[2022-04-07 18:09] LABS: Glucose, Whole Blood 213 mg/dL (60-115)
[2022-04-07 19:06] LABS: Glucose, Whole Blood 202 mg/dL (60-115)
[2022-04-07] MEDS: dilTIAZem HCL 125 MG in 0.9 % Sodium Chloride 100 ML 15 MG IVCONT (19:25)
[2022-04-07 20:09] LABS: VBG Base Excess -4.3 mmol/L; VBG HCO3 18 mmol/L (22-26); VBG pCO2 29 mmHg; VBG pH 7.41 (7.32-7.43); VBG pO2 49 mmHg
[2022-04-07 20:12] LABS: Glucose, Whole Blood 192 mg/dL (60-115)
[2022-04-07 20:23] LABS: Hematocrit 39.9 % (42.0-52.0); Hemoglobin 13.2 g/dl (14.0-18.0); Mean Corpuscular HGB Conc 33.1 g/dl (31.0-36.0); Mean Corpuscular Hemoglobin 25.3 pg (27.0-33.0); Mean Corpuscular Volume 76.6 fL (80.0-98.0); Platelet Count 111 X10*3/uL (160-400); Red Blood Count 5.21 X10*6/uL (4.60-5.80); Red Cell Distribution Width 17.9 % (11.0-16.0); White Blood Count 13.1 X10*3/uL (4.8-10.8)
[2022-04-07 20:30] LABS: Fibrinogen > 700 MG/DL (259-690); Lactic Acid 3.8 mmol/L (0.5-2.0)
[2022-04-07 20:45] LABS: Anion Gap 21 (12-20); Blood Urea Nitrogen 78 mg/dL (9-16); Calcium 7.5 mg/dL (8.4-10.2); Carbon Dioxide 19 mmol/L (22-29); Chloride 101 mmol/L (96-108); Creatinine Clr Calc Pharmacy 24.7; Estimated Glomerular Filt Rate 16; Glucose Random 207 mg/dL (60-115); Potassium 4.1 mmol/L (3.3-5.1); Sodium 137 mmol/L (135-145)
[2022-04-07 21:06] LABS: Venous Blood Gas Refer to POC result
[2022-04-07 21:16] LABS: Glucose, Whole Blood 185 mg/dL (60-115)
[2022-04-07 22:09] LABS: Reflex Lactate? Lactic Acid Added
[2022-04-07 23:02] LABS: Glucose, Whole Blood 169 mg/dL (60-115)
[2022-04-07 23:02] LABS: Glucose, Whole Blood 173 mg/dL (60-115)
[2022-04-07 23:08] LABS: ~Lactic Acid-LAB USE ONLY 3.8 mmol/L (0.5-2.0)
[2022-04-08] VITALS (36 sets, daily range): BP systolic 95–136; BP diastolic 43–87; PULSE 70–154; RESP 16–37; TEMP 36.2–39.8; O2SAT 91–99; BMI 42.9
[2022-04-08] MEDS: Lactated Ringers 1,000 ML 50 ML IVCONT (00:07)
[2022-04-08 00:21] LABS: Glucose, Whole Blood 169 mg/dL (60-115)
[2022-04-08 00:42] LABS: Reflex Lactate? 2 Y
[2022-04-08 01:03] LABS: Glucose, Whole Blood 168 mg/dL (60-115)
[2022-04-08 01:45] LABS: ~Lactic Acid-LAB USE ONLY 3.6 mmol/L (0.5-2.0)
[2022-04-08 02:10] LABS: Glucose, Whole Blood 153 mg/dL (60-115)
[2022-04-08] MEDS: Acetaminophen Supp 650 MG SUPP.RECT PR (02:34)
[2022-04-08 03:10] LABS: Glucose, Whole Blood 143 mg/dL (60-115)
[2022-04-08] MEDS: dilTIAZem HCL 125 MG in 0.9 % Sodium Chloride 100 ML 15 MG IVCONT ×2 (03:15→10:59)
[2022-04-08 03:36] LABS: VBG Base Excess -2.4 mmol/L; VBG HCO3 20 mmol/L (22-26); VBG pCO2 28 mmHg; VBG pH 7.45 (7.32-7.43); VBG pO2 39 mmHg
[2022-04-08 03:42] LABS: NRBC Pct Auto 0.2 /100WBC (0.0-0.2); Red Blood Count 5.21 X10*6/uL (4.60-5.80); Red Cell Distribution Width 17.8 % (11.0-16.0)
[2022-04-08 03:44] LABS: Hematocrit 39.4 % (42.0-52.0); Mean Corpuscular Volume 75.6 fL (80.0-98.0); Platelet Count 100 X10*3/uL (160-400); White Blood Count 12.4 X10*3/uL (4.8-10.8)
[2022-04-08] MEDS: Metoprolol Tartrate 5 MG/5 ML VIAL IVPUSH ×3 (03:49→13:49)
[2022-04-08 03:50] LABS: PLT ABN DIST 1
[2022-04-08 04:00] LABS: Band Neutrophils Percent 20 % (3-5); Lymphocytes Absolute Manual 0.4 X10*3/uL (1.2-4.9); Lymphocytes Percent Manual 3 % (20-40); Monocytes Absolute Manual 0.7 X10*3/uL (0.1-1.2); Monocytes Percent Manual 6 % (2-11); Neutrophils Absolute Manual 11.3 X10*3/uL (2.0-8.3); Neutrophils Percent Manual 71 % (45-73)
[2022-04-08 04:03] LABS: Burr Cells 3+ (>5) /OIF; Dohle Bodies PRESENT; Microcytosis 1+ (5-14) /OIF; RBC Morphology NOTED; Toxic Granulation PRESENT
[2022-04-08 04:04] LABS: Large Platelet PRESENT; Platelet Estimate DECREASED (NORMAL); Platelet Morphology Comment NOTED; Toxic Vacuolation PRESENT
[2022-04-08 04:42] LABS: Albumin Level 2.3 g/dL (3.5-5.0); Anion Gap 20 (12-20); Blood Urea Nitrogen 86 mg/dL (9-16); Calcium 7.7 mg/dL (8.4-10.2); Carbon Dioxide 20 mmol/L (22-29); Chloride 102 mmol/L (96-108); Creatinine Clr Calc Pharmacy 23.5; Estimated Glomerular Filt Rate 15; Glucose Random 137 mg/dL (60-115); Magnesium 2.2 mg/dL (1.6-2.6); Phosphorus 3.5 mg/dL (2.7-4.5); Potassium 4.1 mmol/L (3.3-5.1); Sodium 138 mmol/L (135-145)
[2022-04-08] MEDS: Albumin Human 25 % 100 ML IV ×2 (05:04→05:52)
--- NOTE | 2022-04-08 05:36 | PC.NURSE ---
Upon initial assessment at 1900- pt A&Ox3, follows commands, moves all extremities. Afib on tele, HR up to 150s, maxed on cardizem drip. 0.25mg Dig given with minimal effect PRn lopresspor x2 with minimal effect [employer] Plater Amelia Cruz aware no new orders, Vasopressin running per order, MAP > 65. Pacemaker firing inappropriately, SPORTS COORDINATOR made aware. Pt on BiPAP overnight 02/16/30% tolerating well, removed and placed on 5lNC for mouth care. NPO on bipap, insulin drip titrated off per may. Pro in place, UO 15mls/hr initially, SPORTS COORDINATOR made aware, IVF titrated per may. UO increased to 30-50 ml/hr. 0200 Core temp via pro connected temp 103.6, given CA tylenol with minimal effect, packed with ice then placed on cooling blanket, temp now 100s. Skin intact scattered with bruising, skin tear to left skin dressing CDI. CHG bath given. Pro care given. Repo q2 hours. Call olsen in reach, bed locked lowest position. Pt aware of plan of care.
[2022-04-08 05:44] LABS: Glucose, Whole Blood 132 mg/dL (60-115)
[2022-04-08] MEDS: Vasopressin 20 UNIT/100 ML INFUS..BTL 12 UNIT IV ×3 (05:52→21:41)
[2022-04-08] MEDS: HYDROmorphone HCl 0.5 MG/0.5 ML SYRINGE IVPUSH ×4 (06:44→21:57)
[2022-04-08 06:55] LABS: Lactic Acid 3.5 mmol/L (0.5-2.0)
[2022-04-08] MEDS: Digoxin 0.5 MG/2 ML AMPUL 0.25 MG IVPUSH (06:58)
[2022-04-08 08:29] LABS: Reflex Lactate? Lactic Acid Added
[2022-04-08] MEDS: Ampicillin Sodium/Sulbactam Na 3 GM in 0.9 % Sodium Chloride 100 ML IV ×2 (08:37→19:32)
[2022-04-08 08:40] LABS: INTERNATIONAL NORM RATIO 4.5 (0.9-1.1); Prothrombin Time 55.4 SEC (10.0-13.1)
[2022-04-08 08:42] LABS: Venous Blood Gas Refer to POC result
[2022-04-08 08:45] LABS: Fibrinogen > 700 MG/DL (259-690)
[2022-04-08 09:29] LABS: Glucose, Whole Blood 186 mg/dL (60-115)
--- NOTE | 2022-04-08 09:32 | P.PNCC_ITS ---
Subjective Subjective Date of Service: 04/08/22 Interval History: 66-year-old morbidly obese male with background history of type 2 diabetes mellitus hyperlipidemia hypertension COPD and history of heart failure with preserved ejection fraction presents with septic shock presumed by the ER to be urinary origin but he clearly had evidence of some of cellulitis of his lower extremities acute open abrasions in this area and we empirically covered him in addition to ceftriaxone with vancomycin and we subsequently grew 2/2 blood cultures with group G Streptococcus and he is on Unasyn ever since He clearly had DIC and remains with an elevated prothrombin time and PTT and continue did diminishing of platelets with evidence of schistocytes so this is a consumptive coagulopathy with with a microangiopathic picture but he does not have significant acrocyanosis and he clearly has evidence of resolving rhabdomyolysis and he is finally turned the corner on his kidney function progressively less oliguric and a diminishing creatinine so certain features are a improving and he still remains on on BiPAP which is definitely helping him with his work of breathing and bedside echo done formally today he does still have preserved ejection fraction no significant primary valve disease and a lthough difficult to interpret his tissue Doppler there is no particular evidence right now of elevated left heart filling pressure and as we continue to gain control over his rapid atrial fibrillation we are definitely showing diminished effort at at in terms of work of breathing Critical Care Time (minutes): 45 Physical Exam Vital Signs: Vital Signs: Last Vital Signs Temp 97.5 F 04/08/22 08:00 Pulse 117 H 04/08/22 09:00 Resp 22 H 04/08/22 09:00 BP 127/73 04/08/22 09:00 Pulse Ox 94 04/08/22 09:00 O2 Del Method 04/08/22 09:00 O2 Flow Rate 30 04/08/22 06:00 FiO2 30 04/08/22 09:00 Oxygen Flow Rate 9 04/07/22 13:10 BMI result Body Mass Index 42.9 He seems more awake better able to communicate moves all 4 extremities Echo description of his cardiac function as above Lungs remain clear without wheezes and without rales Abdomen as the rest of his body seems to be very tender but between the ultrasound and the CT scan there is no evidence of pathology is not distended belly soft Objective Data Labs 04/08/22 03:29 04/08/22 03:29 Labs: Laboratory Results - last 24 hr 0104/07/22 04/07/22 11:37 11:40 11:40 WBC RBC Hgb Hct MCV MCH MCHC RDW Plt Count MPV Immature Gran % (Auto) Neut % (Auto) Lymph % (Auto) [place] % (Auto) Eos % (Auto) Baso % (Auto) Lymph # (Auto) [place] # (Auto) Eos # (Auto) Baso # (Auto) Abs Immat Gran (auto) Absolute Neuts (auto) Absolute Nucleated RBC Nucleated RBC % (auto) Neutrophils % (Manual) Band Neutrophils % Lymphocytes % (Manual) Monocytes % (Manual) Abs Neuts (Manual) Lymphocytes # (Manual) Monocytes # (Manual) Toxic Granulation Toxic Vacuolation Dohle Bodies Platelet Estimate Large Platelets Plt Morphology Comment RBC Morphology Microcytosis [place] Cells PT INR APTT Fibrinogen VBG pH VBG pCO2 VBG pO2 VBG HCO3 VBG O2 Saturation VBG Base Excess Sodium 137 Potassium 4.1 Chloride 93 L Carbon Dioxide 19 L Anion Gap 29 H BUN 73 H Creatinine 3.88 H Estim Creat Clear Calc TNP Estimated GFR 16 POC Glucose 224 H Random Glucose 227 H Lactic Acid 6.1 H* Lactic Acid F/U @ 2Hr Lactic Acid F/U @ 4Hr Calcium 8.6 Phosphorus Magnesium 2.5 Total Bilirubin 4.4 H Direct Bilirubin 3.0 H AST 261 H ALT 167 H Alkaline Phosphatase 79 Total Creatine Kinase 7645 H Troponin I High Sens C-Reactive Protein 59.81 H B-Natriuretic Peptide Total Protein 5.7 L Albumin 2.9 L Lipase 17 Procalcitonin TSH Free T4 Urine Color Urine Appearance Urine pH Ur Specific [place] Urine Protein Urine Glucose (UA) Urine Ketones Urine Blood Urine Nitrite Ur Leukocyte Esterase Urine RBC Urine WBC Ur Squamous Epith Cells Urine Bacteria Hyaline Casts Acetaminophen < 17 Ethyl Alcohol Acetone, Qual Small H COVID-19 (FLEX) COVID-19 Clin Com Influenza Type A (PCR) Influenza Type B (PCR) RSV RNA Qual (PCR) SARS-CoV-2 RNA (RT-PCR) 04/07/22 04/07/22 04/07/22 11:40 11:40 11:40 WBC RBC Hgb Hct MCV MCH MCHC RDW Plt Count MPV Immature Gran % (Auto) Neut % (Auto) Lymph % (Auto) [place] % (Auto) Eos % (Auto) Baso % (Auto) Lymph # (Auto) [place] # (Auto) Eos # (Auto) Baso # (Auto) Abs Immat Gran (auto) Absolute Neuts (auto) Absolute Nucleated RBC Nucleated RBC % (auto) Neutrophils % (Manual) Band Neutrophils % Lymphocytes % (Manual) Monocytes % (Manual) Abs Neuts (Manual) Lymphocytes # (Manual) Monocytes # (Manual) Toxic Granulation Toxic Vacuolation Dohle Bodies Platelet Estimate Large Platelets Plt Morphology Comment RBC Morphology Microcytosis Joseph Cells PT INR APTT Fibrinogen VBG pH VBG pCO2 VBG pO2 VBG HCO3 VBG O2 Saturation VBG Base Excess Sodium Potassium Chloride Carbon Dioxide Anion Gap BUN Creatinine Estim Creat Clear Calc Estimated GFR POC Glucose Random Glucose Lactic Acid Lactic Acid F/U @ 2Hr Lactic Acid F/U @ 4Hr Calcium Phosphorus Magnesium Total Bilirubin Direct Bilirubin AST ALT Alkaline Phosphatase Total Creatine Kinase Troponin I High Sens 366.3 H* C-Reactive Protein B-Natriuretic Peptide Total Protein Albumin Lipase Procalcitonin 32.58 TSH Free T4 Urine Color Urine Appearance Urine pH Ur Specific [place] Urine Protein Urine Glucose (UA) Urine Ketones Urine Blood Urine Nitrite Ur Leukocyte Esterase Urine RBC Urine WBC Ur Squamous Epith Cells Urine Bacteria Hyaline Casts Acetaminophen Ethyl Alcohol < 10 Acetone, Qual COVID-19 (FLEX) COVID-19 Clin Com Influenza Type A (PCR) Influenza Type B (PCR) RSV RNA Qual (PCR) SARS-CoV-2 RNA (RT-PCR) 04/07/22 04/07/22 04/07/22 11:40 11:40 11:51 WBC RBC Hgb Hct MCV MCH MCHC RDW Plt Count MPV Immature Gran % (Auto) Neut % (Auto) Lymph % (Auto) [place] % (Auto) Eos % (Auto) Baso % (Auto) Lymph # (Auto) [place] # (Auto) Eos # (Auto) Baso # (Auto) Abs Immat Gran (auto) Absolute Neuts (auto) Absolute Nucleated RBC Nucleated RBC % (auto) Neutrophils % (Manual) Band Neutrophils % Lymphocytes % (Manual) Monocytes % (Manual) Abs Neuts (Manual) Lymphocytes # (Manual) Monocytes # (Manual) Toxic Granulation Toxic Vacuolation Dohle Bodies Platelet Estimate Large Platelets Plt Morphology Comment RBC Morphology Microcytosis [place] Cells PT INR APTT Fibrinogen VBG pH 7.36 VBG pCO2 35 VBG pO2 32 VBG HCO3 20 L VBG O2 Saturation 33.0 VBG Base Excess -4.0 Sodium Potassium Chloride Carbon Dioxide Anion Gap BUN Creatinine Estim Creat Clear Calc Estimated GFR POC Glucose Random Glucose Lactic Acid Lactic Acid F/U @ 2Hr Lactic Acid F/U @ 4Hr Calcium Phosphorus Magnesium Total Bilirubin Direct Bilirubin AST ALT Alkaline Phosphatase Total Creatine Kinase Troponin I High Sens C-Reactive Protein B-Natriuretic Peptide Total Protein Albumin Lipase Procalcitonin TSH Free T4 Urine Color Dark Yellow Urine Appearance Cloudy Urine pH 5.0 Ur Specific [place] 1.020 Urine Protein 300 (3+) H Urine Glucose (UA) 500 H Urine Ketones Trace Urine Blood Large (3+) H Urine Nitrite Positive H Ur Leukocyte Esterase Trace H Urine RBC >20 H Urine WBC 0-5 Ur Squamous Epith Cells 3-5 Urine Bacteria None Seen Hyaline Casts 0-2 Acetaminophen Ethyl Alcohol Acetone, Qual COVID-19 (FLEX) COVID-19 Clin Com Influenza Type A (PCR) NEGATIVE Influenza Type B (PCR) NEGATIVE RSV RNA Qual (PCR) NEGATIVE SARS-CoV-2 RNA (RT-PCR) NEGATIVE 04/07/22 04/07/22 04/07/22 12:52 14:37 14:37 WBC 15.3 H RBC 5.08 Hgb 12.9 L Hct 39.1 L MCV 77.0 L MCH 25.4 L MCHC 33.0 RDW 17.8 H Plt Count Not Reportable MPV Not Reportable Immature Gran % (Auto) Cancelled Neut % (Auto) Cancelled Lymph % (Auto) Cancelled [place] % (Auto) Cancelled Eos % (Auto) Cancelled Baso % (Auto) Cancelled Lymph # (Auto) Cancelled [place] # (Auto) Cancelled Eos # (Auto) Cancelled Baso # (Auto) Cancelled Abs Immat Gran (auto) Cancelled Absolute Neuts (auto) Cancelled Absolute Nucleated RBC 0.000 Nucleated RBC % (auto) 0.0 Neutrophils % (Manual) 83 H Band Neutrophils % 11 H Lymphocytes % (Manual) 1 L Monocytes % (Manual) 5 Abs Neuts (Manual) 14.4 H Lymphocytes # (Manual) 0.2 L Monocytes # (Manual) 0.8 Toxic Granulation PRESENT Toxic Vacuolation PRESENT Dohle Bodies PRESENT Platelet Estimate DECREASED Large Platelets Plt Morphology Comment NORMAL RBC Morphology NOTED Microcytosis 1+ (5-14) [place] Cells 3+ (>5) PT INR APTT Fibrinogen VBG pH VBG pCO2 VBG pO2 VBG HCO3 VBG O2 Saturation VBG Base Excess Sodium Potassium Chloride Carbon Dioxide Anion Gap BUN Creatinine Estim Creat Clear Calc Estimated GFR POC Glucose Random Glucose Lactic Acid Lactic Acid F/U @ 2Hr Lactic Acid F/U @ 4Hr Calcium Phosphorus Magnesium Total Bilirubin Direct Bilirubin AST ALT Alkaline Phosphatase Total Creatine Kinase Troponin I High Sens C-Reactive Protein B-Natriuretic Peptide 272 H Total Protein Albumin Lipase Procalcitonin TSH Free T4 Urine Color Urine Appearance Urine pH Ur Specific [place] Urine Protein Urine Glucose (UA) Urine Ketones Urine Blood Urine Nitrite Ur Leukocyte Esterase Urine RBC Urine WBC Ur Squamous Epith Cells Urine Bacteria Hyaline Casts Acetaminophen Ethyl Alcohol Acetone, Qual COVID-19 (FLEX) Negative COVID-19 Clin Com See Note Influenza Type A (PCR) Influenza Type B (PCR) RSV RNA Qual (PCR) SARS-CoV-2 RNA (RT-PCR) 04/07/22 04/07/22 04/07/22 14:37 14:37 14:37 WBC RBC Hgb Hct MCV MCH MCHC RDW Plt Count MPV Immature Gran % (Auto) Neut % (Auto) Lymph % (Auto) [place] % (Auto) Eos % (Auto) Baso % (Auto) Lymph # (Auto) [place] # (Auto) Eos # (Auto) Baso # (Auto) Abs Immat Gran (auto) Absolute Neuts (auto) Absolute Nucleated RBC Nucleated RBC % (auto) Neutrophils % (Manual) Band Neutrophils % Lymphocytes % (Manual) Monocytes % (Manual) Abs Neuts (Manual) Lymphocytes # (Manual) Monocytes # (Manual) Toxic Granulation Toxic Vacuolation Dohle Bodies Platelet Estimate Large Platelets Plt Morphology Comment RBC Morphology Microcytosis Joseph Cells PT 42.8 H INR 3.5 H APTT 93.6 H* Fibrinogen VBG pH VBG pCO2 VBG pO2 VBG HCO3 VBG O2 Saturation VBG Base Excess Sodium Potassium Chloride Carbon Dioxide Anion Gap BUN Creatinine Estim Creat Clear Calc Estimated GFR POC Glucose Random Glucose Lactic Acid Lactic Acid F/U @ 2Hr 4.6 H* Lactic Acid F/U @ 4Hr Calcium Phosphorus Magnesium Total Bilirubin Direct Bilirubin AST ALT Alkaline Phosphatase Total Creatine Kinase Troponin I High Sens C-Reactive Protein B-Natriuretic Peptide Total Protein Albumin Lipase Procalcitonin TSH 2.07 Free T4 0.73 Urine Color Urine Appearance Urine pH Ur Specific [place] Urine Protein Urine Glucose (UA) Urine Ketones Urine Blood Urine Nitrite Ur Leukocyte Esterase Urine RBC Urine WBC Ur Squamous Epith Cells Urine Bacteria Hyaline Casts Acetaminophen Ethyl Alcohol Acetone, Qual COVID-19 (FLEX) COVID-19 Clin Com Influenza Type A (PCR) Influenza Type B (PCR) RSV RNA Qual (PCR) SARS-CoV-2 RNA (RT-PCR) 04/07/22 04/07/22 04/07/22 14:44 16:09 17:03 WBC RBC Hgb Hct MCV MCH MCHC RDW Plt Count MPV Immature Gran % (Auto) Neut % (Auto) Lymph % (Auto) [place] % (Auto) Eos % (Auto) Baso % (Auto) Lymph # (Auto) [place] # (Auto) Eos # (Auto) Baso # (Auto) Abs Immat Gran (auto) Absolute Neuts (auto) Absolute Nucleated RBC Nucleated RBC % (auto) Neutrophils % (Manual) Band Neutrophils % Lymphocytes % (Manual) Monocytes % (Manual) Abs Neuts (Manual) Lymphocytes # (Manual) Monocytes # (Manual) Toxic Granulation Toxic Vacuolation Dohle Bodies Platelet Estimate Large Platelets Plt Morphology Comment RBC Morphology Microcytosis [place] Cells PT INR APTT Fibrinogen VBG pH VBG pCO2 VBG pO2 VBG HCO3 VBG O2 Saturation VBG Base Excess Sodium Potassium Chloride Carbon Dioxide Anion Gap BUN Creatinine Estim Creat Clear Calc Estimated GFR POC Glucose 205 H 202 H 199 H Random Glucose Lactic Acid Lactic Acid F/U @ 2Hr Lactic Acid F/U @ 4Hr Calcium Phosphorus Magnesium Total Bilirubin Direct Bilirubin AST ALT Alkaline Phosphatase Total Creatine Kinase Troponin I High Sens C-Reactive Protein B-Natriuretic Peptide Total Protein Albumin Lipase Procalcitonin TSH Free T4 Urine Color Urine Appearance Urine pH Ur Specific [place] Urine Protein Urine Glucose (UA) Urine Ketones Urine Blood Urine Nitrite Ur Leukocyte Esterase Urine RBC Urine WBC Ur Squamous Epith Cells Urine Bacteria Hyaline Casts Acetaminophen Ethyl Alcohol Acetone, Qual COVID-19 (FLEX) COVID-19 Clin Com Influenza Type A (PCR) Influenza Type B (PCR) RSV RNA Qual (PCR) SARS-CoV-2 RNA (RT-PCR) 04/07/22 04/07/22 04/07/22 17:21 18:06 19:02 WBC RBC Hgb Hct MCV MCH MCHC RDW Plt Count MPV Immature Gran % (Auto) Neut % (Auto) Lymph % (Auto) [place] % (Auto) Eos % (Auto) Baso % (Auto) Lymph # (Auto) [place] # (Auto) Eos # (Auto) Baso # (Auto) Abs Immat Gran (auto) Absolute Neuts (auto) Absolute Nucleated RBC Nucleated RBC % (auto) Neutrophils % (Manual) Band Neutrophils % Lymphocytes % (Manual) Monocytes % (Manual) Abs Neuts (Manual) Lymphocytes # (Manual) Monocytes # (Manual) Toxic Granulation Toxic Vacuolation Dohle Bodies Platelet Estimate Large Platelets Plt Morphology Comment RBC Morphology Microcytosis [place] Cells PT INR APTT Fibrinogen VBG pH VBG pCO2 VBG pO2 VBG HCO3 VBG O2 Saturation VBG Base Excess Sodium Potassium Chloride Carbon Dioxide Anion Gap BUN Creatinine Estim Creat Clear Calc Estimated GFR POC Glucose 213 H 202 H Random Glucose Lactic Acid Lactic Acid F/U @ 2Hr Lactic Acid F/U @ 4Hr 4.3 H* Calcium Phosphorus Magnesium Total Bilirubin Direct Bilirubin AST ALT Alkaline Phosphatase Total Creatine Kinase Troponin I High Sens C-Reactive Protein B-Natriuretic Peptide Total Protein Albumin Lipase Procalcitonin TSH Free T4 Urine Color Urine Appearance Urine pH Ur Specific [place] Urine Protein Urine Glucose (UA) Urine Ketones Urine Blood Urine Nitrite Ur Leukocyte Esterase Urine RBC Urine WBC Ur Squamous Epith Cells Urine Bacteria Hyaline Casts Acetaminophen Ethyl Alcohol Acetone, Qual COVID-19 (FLEX) COVID-19 Clin Com Influenza Type A (PCR) Influenza Type B (PCR) RSV RNA Qual (PCR) SARS-CoV-2 RNA (RT-PCR) 04/07/22 04/07/22 04/07/22 20:00 20:03 20:03 WBC 13.1 H RBC 5.21 Hgb 13.2 L Hct 39.9 L MCV 76.6 L MCH 25.3 L MCHC 33.1 RDW 17.9 H Plt Count 111 L D MPV Not Reportable Immature Gran % (Auto) Neut % (Auto) Lymph % (Auto) [place] % (Auto) Eos % (Auto) Baso % (Auto) Lymph # (Auto) [place] # (Auto) Eos # (Auto) Baso # (Auto) Abs Immat Gran (auto) Absolute Neuts (auto) Absolute Nucleated RBC 0.000 Nucleated RBC % (auto) 0.0 Neutrophils % (Manual) Band Neutrophils % Lymphocytes % (Manual) Monocytes % (Manual) Abs Neuts (Manual) Lymphocytes # (Manual) Monocytes # (Manual) Toxic Granulation Toxic Vacuolation Dohle Bodies Platelet Estimate Large Platelets Plt Morphology Comment RBC Morphology Microcytosis Joseph Cells PT INR APTT Fibrinogen > 700 H VBG pH 7.41 VBG pCO2 29 VBG pO2 49 VBG HCO3 18 L VBG O2 Saturation 74.0 VBG Base Excess -4.3 Sodium Potassium Chloride Carbon Dioxide Anion Gap BUN Creatinine Estim Creat Clear Calc Estimated GFR POC Glucose Random Glucose Lactic Acid Lactic Acid F/U @ 2Hr Lactic Acid F/U @ 4Hr Calcium Phosphorus Magnesium Total Bilirubin Direct Bilirubin AST ALT Alkaline Phosphatase Total Creatine Kinase Troponin I High Sens C-Reactive Protein B-Natriuretic Peptide Total Protein Albumin Lipase Procalcitonin TSH Free T4 Urine Color Urine Appearance Urine pH Ur Specific [place] Urine Protein Urine Glucose (UA) Urine Ketones Urine Blood Urine Nitrite Ur Leukocyte Esterase Urine RBC Urine WBC Ur Squamous Epith Cells Urine Bacteria Hyaline Casts Acetaminophen Ethyl Alcohol Acetone, Qual COVID-19 (FLEX) COVID-19 Clin Com Influenza Type A (PCR) Influenza Type B (PCR) RSV RNA Qual (PCR) SARS-CoV-2 RNA (RT-PCR) 04/07/22 04/07/22 04/07/22 20:03 20:03 20:08 WBC RBC Hgb Hct MCV MCH MCHC RDW Plt Count MPV Immature Gran % (Auto) Neut % (Auto) Lymph % (Auto) [place] % (Auto) Eos % (Auto) Baso % (Auto) Lymph # (Auto) [place] # (Auto) Eos # (Auto) Baso # (Auto) Abs Immat Gran (auto) Absolute Neuts (auto) Absolute Nucleated RBC Nucleated RBC % (auto) Neutrophils % (Manual) Band Neutrophils % Lymphocytes % (Manual) Monocytes % (Manual) Abs Neuts (Manual) Lymphocytes # (Manual) Monocytes # (Manual) Toxic Granulation Toxic Vacuolation Dohle Bodies Platelet Estimate Large Platelets Plt Morphology Comment RBC Morphology Microcytosis [place] Cells PT INR APTT Fibrinogen VBG pH VBG pCO2 VBG pO2 VBG HCO3 VBG O2 Saturation VBG Base Excess Sodium 137 Potassium 4.1 Chloride 101 Carbon Dioxide 19 L Anion Gap 21 H BUN 78 H Creatinine 3.75 H Estim Creat Clear Calc 24.7 Estimated GFR 16 POC Glucose 192 H Random Glucose 207 H Lactic Acid 3.8 H* Lactic Acid F/U @ 2Hr Lactic Acid F/U @ 4Hr Calcium 7.5 L D Phosphorus Magnesium Total Bilirubin Direct Bilirubin AST ALT Alkaline Phosphatase Total Creatine Kinase 8017 H Troponin I High Sens C-Reactive Protein B-Natriuretic Peptide Total Protein Albumin Lipase Procalcitonin TSH Free T4 Urine Color Urine Appearance Urine pH Ur Specific [place] Urine Protein Urine Glucose (UA) Urine Ketones Urine Blood Urine Nitrite Ur Leukocyte Esterase Urine RBC Urine WBC Ur Squamous Epith Cells Urine Bacteria Hyaline Casts Acetaminophen Ethyl Alcohol Acetone, Qual COVID-19 (FLEX) COVID-19 Clin Com Influenza Type A (PCR) Influenza Type B (PCR) RSV RNA Qual (PCR) SARS-CoV-2 RNA (RT-PCR) 04/07/22 04/07/22 04/07/22 21:12 22:08 22:35 WBC RBC Hgb Hct MCV MCH MCHC RDW Plt Count MPV Immature Gran % (Auto) Neut % (Auto) Lymph % (Auto) [place] % (Auto) Eos % (Auto) Baso % (Auto) Lymph # (Auto) [place] # (Auto) Eos # (Auto) Baso # (Auto) Abs Immat Gran (auto) Absolute Neuts (auto) Absolute Nucleated RBC Nucleated RBC % (auto) Neutrophils % (Manual) Band Neutrophils % Lymphocytes % (Manual) Monocytes % (Manual) Abs Neuts (Manual) Lymphocytes # (Manual) Monocytes # (Manual) Toxic Granulation Toxic Vacuolation Dohle Bodies Platelet Estimate Large Platelets Plt Morphology Comment RBC Morphology Microcytosis [place] Cells PT INR APTT Fibrinogen VBG pH VBG pCO2 VBG pO2 VBG HCO3 VBG O2 Saturation VBG Base Excess Sodium Potassium Chloride Carbon Dioxide Anion Gap BUN Creatinine Estim Creat Clear Calc Estimated GFR POC Glucose 185 H 169 H Random Glucose Lactic Acid Lactic Acid F/U @ 2Hr 3.8 H* Lactic Acid F/U @ 4Hr Calcium Phosphorus Magnesium Total Bilirubin Direct Bilirubin AST ALT Alkaline Phosphatase Total Creatine Kinase Troponin I High Sens C-Reactive Protein B-Natriuretic Peptide Total Protein Albumin Lipase Procalcitonin TSH Free T4 Urine Color Urine Appearance Urine pH Ur Specific [place] Urine Protein Urine Glucose (UA) Urine Ketones Urine Blood Urine Nitrite Ur Leukocyte Esterase Urine RBC Urine WBC Ur Squamous Epith Cells Urine Bacteria Hyaline Casts Acetaminophen Ethyl Alcohol Acetone, Qual COVID-19 (FLEX) COVID-19 Clin Com Influenza Type A (PCR) Influenza Type B (PCR) RSV RNA Qual (PCR) SARS-CoV-2 RNA (RT-PCR) 04/07/22 04/08/22 04/08/22 22:58 00:15 01:00 WBC RBC Hgb Hct MCV MCH MCHC RDW Plt Count MPV Immature Gran % (Auto) Neut % (Auto) Lymph % (Auto) [place] % (Auto) Eos % (Auto) Baso % (Auto) Lymph # (Auto) [place] # (Auto) Eos # (Auto) Baso # (Auto) Abs Immat Gran (auto) Absolute Neuts (auto) Absolute Nucleated RBC Nucleated RBC % (auto) Neutrophils % (Manual) Band Neutrophils % Lymphocytes % (Manual) Monocytes % (Manual) Abs Neuts (Manual) Lymphocytes # (Manual) Monocytes # (Manual) Toxic Granulation Toxic Vacuolation Dohle Bodies Platelet Estimate Large Platelets Plt Morphology Comment RBC Morphology Microcytosis [place] Cells PT INR APTT Fibrinogen VBG pH VBG pCO2 VBG pO2 VBG HCO3 VBG O2 Saturation VBG Base Excess Sodium Potassium Chloride Carbon Dioxide Anion Gap BUN Creatinine Estim Creat Clear Calc Estimated GFR POC Glucose 173 H 169 H 168 H Random Glucose Lactic Acid Lactic Acid F/U @ 2Hr Lactic Acid F/U @ 4Hr Calcium Phosphorus Magnesium Total Bilirubin Direct Bilirubin AST ALT Alkaline Phosphatase Total Creatine Kinase Troponin I High Sens C-Reactive Protein B-Natriuretic Peptide Total Protein Albumin Lipase Procalcitonin TSH Free T4 Urine Color Urine Appearance Urine pH Ur Specific [place] Urine Protein Urine Glucose (UA) Urine Ketones Urine Blood Urine Nitrite Ur Leukocyte Esterase Urine RBC Urine WBC Ur Squamous Epith Cells Urine Bacteria Hyaline Casts Acetaminophen Ethyl Alcohol Acetone, Qual COVID-19 (FLEX) COVID-19 Clin Com Influenza Type A (PCR) Influenza Type B (PCR) RSV RNA Qual (PCR) SARS-CoV-2 RNA (RT-PCR) 04/08/22 04/08/22 04/08/22 01:18 02:06 03:05 WBC RBC Hgb Hct MCV MCH MCHC RDW Plt Count MPV Immature Gran % (Auto) Neut % (Auto) Lymph % (Auto) [place] % (Auto) Eos % (Auto) Baso % (Auto) Lymph # (Auto) [place] # (Auto) Eos # (Auto) Baso # (Auto) Abs Immat Gran (auto) Absolute Neuts (auto) Absolute Nucleated RBC Nucleated RBC % (auto) Neutrophils % (Manual) Band Neutrophils % Lymphocytes % (Manual) Monocytes % (Manual) Abs Neuts (Manual) Lymphocytes # (Manual) Monocytes # (Manual) Toxic Granulation Toxic Vacuolation Dohle Bodies Platelet Estimate Large Platelets Plt Morphology Comment RBC Morphology Microcytosis Joseph Cells PT INR APTT Fibrinogen VBG pH VBG pCO2 VBG pO2 VBG HCO3 VBG O2 Saturation VBG Base Excess Sodium Potassium Chloride Carbon Dioxide Anion Gap BUN Creatinine Estim Creat Clear Calc Estimated GFR POC Glucose 153 H 143 H Random Glucose Lactic Acid Lactic Acid F/U @ 2Hr Lactic Acid F/U @ 4Hr 3.6 H* Calcium Phosphorus Magnesium Total Bilirubin Direct Bilirubin AST ALT Alkaline Phosphatase Total Creatine Kinase Troponin I High Sens C-Reactive Protein B-Natriuretic Peptide Total Protein Albumin Lipase Procalcitonin TSH Free T4 Urine Color Urine Appearance Urine pH Ur Specific [place] Urine Protein Urine Glucose (UA) Urine Ketones Urine Blood Urine Nitrite Ur Leukocyte Esterase Urine RBC Urine WBC Ur Squamous Epith Cells Urine Bacteria Hyaline Casts Acetaminophen Ethyl Alcohol Acetone, Qual COVID-19 (FLEX) COVID-19 Clin Com Influenza Type A (PCR) Influenza Type B (PCR) RSV RNA Qual (PCR) SARS-CoV-2 RNA (RT-PCR) 04/08/22 04/08/22 04/08/22 03:28 03:29 03:29 WBC 12.4 H RBC 5.21 Hgb 13.0 L Hct 39.4 L MCV 75.6 L MCH 25.0 L MCHC 33.0 RDW 17.8 H Plt Count 100 L MPV Immature Gran % (Auto) Neut % (Auto) Lymph % (Auto) [place] % (Auto) Eos % (Auto) Baso % (Auto) Lymph # (Auto) [place] # (Auto) Eos # (Auto) Baso # (Auto) Abs Immat Gran (auto) Absolute Neuts (auto) Absolute Nucleated RBC 0.030 H Nucleated RBC % (auto) 0.2 Neutrophils % (Manual) 71 Band Neutrophils % 20 H Lymphocytes % (Manual) 3 L Monocytes % (Manual) 6 Abs Neuts (Manual) 11.3 H Lymphocytes # (Manual) 0.4 L Monocytes # (Manual) 0.7 Toxic Granulation PRESENT Toxic Vacuolation PRESENT Dohle Bodies PRESENT Platelet Estimate DECREASED Large Platelets PRESENT Plt Morphology Comment NOTED RBC Morphology NOTED Microcytosis 1+ (5-14) [place] Cells 3+ (>5) PT INR APTT Fibrinogen VBG pH 7.45 H VBG pCO2 28 VBG pO2 39 VBG HCO3 20 L VBG O2 Saturation 61.0 VBG Base Excess -2.4 Sodium 138 Potassium 4.1 Chloride 102 Carbon Dioxide 20 L Anion Gap 20 BUN 86 H Creatinine 3.94 H Estim Creat Clear Calc 23.5 Estimated GFR 15 POC Glucose Random Glucose 137 H Lactic Acid Lactic Acid F/U @ 2Hr Lactic Acid F/U @ 4Hr Calcium 7.7 L Phosphorus 3.5 Magnesium 2.2 Total Bilirubin Direct Bilirubin AST ALT Alkaline Phosphatase Total Creatine Kinase 6320 H Troponin I High Sens C-Reactive Protein B-Natriuretic Peptide Total Protein Albumin 2.3 L Lipase Procalcitonin TSH Free T4 Urine Color Urine Appearance Urine pH Ur Specific [place] Urine Protein Urine Glucose (UA) Urine Ketones Urine Blood Urine Nitrite Ur Leukocyte Esterase Urine RBC Urine WBC Ur Squamous Epith Cells Urine Bacteria Hyaline Casts Acetaminophen Ethyl Alcohol Acetone, Qual COVID-19 (FLXE) COVID-19 Clin Com Influenza Type A (PCR) Influenza Type B (PCR) RSV RNA Qual (PCR) SARS-CoV-2 RNA (RT-PCR) 04/08/22 04/08/22 04/08/22 05:40 06:25 07:58 WBC RBC Hgb Hct MCV MCH MCHC RDW Plt Count MPV Immature Gran % (Auto) Neut % (Auto) Lymph % (Auto) [place] % (Auto) Eos % (Auto) Baso % (Auto) Lymph # (Auto) [place] # (Auto) Eos # (Auto) Baso # (Auto) Abs Immat Gran (auto) Absolute Neuts (auto) Absolute Nucleated RBC Nucleated RBC % (auto) Neutrophils % (Manual) Band Neutrophils % Lymphocytes % (Manual) Monocytes % (Manual) Abs Neuts (Manual) Lymphocytes # (Manual) Monocytes # (Manual) Toxic Granulation Toxic Vacuolation Dohle Bodies Platelet Estimate Large Platelets Plt Morphology Comment RBC Morphology Microcytosis [place] Cells PT 55.4 H INR 4.5 H APTT 107.0 H* Fibrinogen > 700 H VBG pH VBG pCO2 VBG pO2 VBG HCO3 VBG O2 Saturation VBG Base Excess Sodium Potassium Chloride Carbon Dioxide Anion Gap BUN Creatinine Estim Creat Clear Calc Estimated GFR POC Glucose 132 H Random Glucose Lactic Acid 3.5 H* Lactic Acid F/U @ 2Hr Lactic Acid F/U @ 4Hr Calcium Phosphorus Magnesium Total Bilirubin Direct Bilirubin AST ALT Alkaline Phosphatase Total Creatine Kinase Troponin I High Sens C-Reactive Protein B-Natriuretic Peptide Total Protein Albumin Lipase Procalcitonin TSH Free T4 Urine Color Urine Appearance Urine pH Ur Specific [place] Urine Protein Urine Glucose (UA) Urine Ketones Urine Blood Urine Nitrite Ur Leukocyte Esterase Urine RBC Urine WBC Ur Squamous Epith Cells Urine Bacteria Hyaline Casts Acetaminophen Ethyl Alcohol Acetone, Qual COVID-19 (FLEX) COVID-19 Clin Com Influenza Type A (PCR) Influenza Type B (PCR) RSV RNA Qual (PCR) SARS-CoV-2 RNA (RT-PCR) 04/08/22 09:26 WBC RBC Hgb Hct MCV MCH MCHC RDW Plt Count MPV Immature Gran % (Auto) Neut % (Auto) Lymph % (Auto) [place] % (Auto) Eos % (Auto) Baso % (Auto) Lymph # (Auto) [place] # (Auto) Eos # (Auto) Baso # (Auto) Abs Immat Gran (auto) Absolute Neuts (auto) Absolute Nucleated RBC Nucleated RBC % (auto) Neutrophils % (Manual) Band Neutrophils % Lymphocytes % (Manual) Monocytes % (Manual) Abs Neuts (Manual) Lymphocytes # (Manual) Monocytes # (Manual) Toxic Granulation Toxic Vacuolation Dohle Bodies Platelet Estimate Large Platelets Plt Morphology Comment RBC Morphology Microcytosis Joseph Cells PT INR APTT Fibrinogen VBG pH VBG pCO2 VBG pO2 VBG HCO3 VBG O2 Saturation VBG Base Excess Sodium Potassium Chloride Carbon Dioxide Anion Gap BUN Creatinine Estim Creat Clear Calc Estimated GFR POC Glucose 186 H Random Glucose Lactic Acid Lactic Acid F/U @ 2Hr Lactic Acid F/U @ 4Hr Calcium Phosphorus Magnesium Total Bilirubin Direct Bilirubin AST ALT Alkaline Phosphatase Total Creatine Kinase Troponin I High Sens C-Reactive Protein B-Natriuretic Peptide Total Protein Albumin Lipase Procalcitonin TSH Free T4 Urine Color Urine Appearance Urine pH Ur Specific [place] Urine Protein Urine Glucose (UA) Urine Ketones Urine Blood Urine Nitrite Ur Leukocyte Esterase Urine RBC Urine WBC Ur Squamous Epith Cells Urine Bacteria Hyaline Casts Acetaminophen Ethyl Alcohol Acetone, Qual COVID-19 (FLEX) COVID-19 Clin Com Influenza Type A (PCR) Influenza Type B (PCR) RSV RNA Qual (PCR) SARS-CoV-2 RNA (RT-PCR) Microbiology Microbiology Results: Microbiology 04/07/22 12:52 Blood - Venous Blood Culture - Preliminary Prelim: GPC Gram Stain only 04/07/22 11:40 Blood - Venous Blood Culture - Preliminary Prelim: GPC Gram Stain only Progress Note: A&P Assessment and plan (1) Rhabdomyolysis: Status: Acute (2) Acute renal failure: Status: Acute (3) Elevated liver enzymes: Status: Acute (4) Elevated troponin: Status: Acute (5) Cellulitis: Status: Acute (6) Atrial fibrillation with RVR: Status: Acute (7) HLD (hyperlipidemia): Status: Acute (8) HTN (hypertension): Status: Acute (9) COPD (chronic obstructive pulmonary disease): Status: Acute (10) Bilateral leg edema: Status: Acute (11) Moderate major depression: Status: Acute (12) Diabetic foot: Status: Acute (13) Leg ulcer: Status: Acute (14) Chronic heart failure with preserved ejection fraction (HFpEF): Status: Acute (15) Cardiac pacemaker in situ: Status: Acute (16) Diabetes mellitus: Status: Acute (17) Controlled diabetes mellitus with diabetic polyneuropathy: Status: Acute (18) Chronic wound of extremity: Status: Acute (19) Gout: Status: Acute (20) Atrial fibrillation: Status: Acute (21) Obesity: Status: Acute (22) Obstructive sleep apnea: Status: Acute (23) Chronic asthma: Status: Acute (24) Sepsis associated hypotension: Status: Acute Plan So antibiotics will continue as above and were following CVP and engaging his IV drip accordingly to help us resolved the rhabdomyolysis and were going to wait for improvement in in the DIC process as we treat the underlying issue and for now we are going to maintain the Cardizem drip and p.r.n. use of Lopressor for heart rate control and support his work of breathing with the BiPAP Quality Stroke Does the patient have a stroke diagnosis?: No VTE Prior VTE?: No VTE Risk Level:: Medical - moderate - high VTE Device Contraindication: N/A - Device Ordered VTE Drug Contraindication: Treatment Not Tolerated
[2022-04-08] MEDS: Lactated Ringers 1,000 ML 100 ML IVCONT ×2 (11:00→20:50)
[2022-04-08] MEDS: Insulin Lispro 100 UNIT/ML 3 ML VIAL SUBCUT ×3 (11:26→23:52)
--- NOTE | 2022-04-08 11:28 | MHC.CM.PN ---
Addendum entered by Melina Carpio 04/08/22 13:09: Spoke with patients sister Rose. She is agreeable to be his additional HCP. Original Note: IMM04/08/22 Male 66 DX Rhabdomyolysis S/P fall lives by himself. He is independent with all functional mobility. He drives himself to appointments. PMX Afib s/p pacer, on AC therapy; which is managed [place] [facility]. PMH continued: HF, COPD, DM and Lyme disease. A HCP is on file, Oscar Douglas. Spoke with Oumar mccoy. He requested that an additional person by added as 2nd HCP. Preferrences for STR were obtained. The referrals have been sent. DP STR via BLS.
[2022-04-08 11:29] LABS: Glucose, Whole Blood 195 mg/dL (60-115)
--- NOTE | 2022-04-08 15:02 | HE.PHANOTE ---
Vancomycin Dosing Addendum Patients level came back at 11 mg/L. Patient has only received a 2000 mg load so far. Patient is scheduled for 1000 mg Q48H. Patients renal function is CrCL 23.5. Will keep dose as patient has not received a maintenance dose yet, and then will get another level 24 hours later so see how patient is clearing. Next draw 04/09 @ 1400. Predicted AUC 416 mg/L/hr.
[2022-04-08] MEDS: vancomycin HCL 1,000 MG in 0.9 % Sodium Chloride 250 ML 270 MG IV (16:16)
[2022-04-08 17:06] LABS: VBG Base Excess -6.6 mmol/L; VBG HCO3 18 mmol/L (22-26); VBG pCO2 36 mmHg; VBG pH 7.31 (7.32-7.43); VBG pO2 62 mmHg
[2022-04-08 17:08] LABS: Venous Blood Gas Refer to POC result
[2022-04-08 17:29] LABS: Anion Gap 22 (12-20); Blood Urea Nitrogen 94 mg/dL (9-16); Calcium 7.4 mg/dL (8.4-10.2); Carbon Dioxide 17 mmol/L (22-29); Chloride 103 mmol/L (96-108); Creatinine Clr Calc Pharmacy 25.7; Estimated Glomerular Filt Rate 17; Glucose Random 270 mg/dL (60-115); Potassium 4.4 mmol/L (3.3-5.1); Sodium 138 mmol/L (135-145)
[2022-04-08 17:34] LABS: Lactic Acid 2.1 mmol/L (0.5-2.0)
[2022-04-08 17:43] LABS: Glucose, Whole Blood 236 mg/dL (60-115)
[2022-04-08 18:58] LABS: Reflex Lactate? Lactic Acid Added
[2022-04-08 19:44] LABS: ~Lactic Acid-LAB USE ONLY 1.9 mmol/L (0.5-2.0)
[2022-04-08 23:30] LABS: Glucose, Whole Blood 221 mg/dL (60-115)
[2022-04-09] VITALS (35 sets, daily range): BP systolic 109–150; BP diastolic 47–77; PULSE 68–139; RESP 16–100; TEMP 36.6–38.3; O2SAT 91–98; BMI 43.2
[2022-04-09] MEDS: HYDROmorphone HCl 0.5 MG/0.5 ML SYRINGE IVPUSH ×6 (01:37→22:31)
[2022-04-09] MEDS: dilTIAZem HCL 125 MG in 0.9 % Sodium Chloride 100 ML IVCONT (03:08)
[2022-04-09 04:39] LABS: VBG Base Excess -4.2 mmol/L; VBG HCO3 19 mmol/L (22-26); VBG pCO2 31 mmHg; VBG pH 7.39 (7.32-7.43); VBG pO2 59 mmHg
[2022-04-09 04:44] LABS: Venous Blood Gas Refer to POC result
[2022-04-09 05:07] LABS: Mean Corpuscular Hemoglobin 25.5 pg (27.0-33.0); PLT ABN DIST 1
[2022-04-09 05:09] LABS: Hematocrit 33.3 % (42.0-52.0); Mean Corpuscular Volume 77.3 fL (80.0-98.0); Platelet Count 84 X10*3/uL (160-400); Red Blood Count 4.31 X10*6/uL (4.60-5.80); Red Cell Distribution Width 17.8 % (11.0-16.0); White Blood Count 9.9 X10*3/uL (4.8-10.8)
[2022-04-09] MEDS: Vasopressin 20 UNIT/100 ML INFUS..BTL 12 UNIT IV ×3 (05:11→21:30)
[2022-04-09] MEDS: Levothyroxine Sodium 100 MCG/5 ML VIAL 37.5 MCG IVPUSH (05:14)
[2022-04-09 05:20] LABS: Prothrombin Time 77.9 SEC (10.0-13.1)
[2022-04-09 05:23] LABS: INTERNATIONAL NORM RATIO 6.3 (0.9-1.1); Partial Thromboplastin Time 88.3 SEC (26.0-36.4)
[2022-04-09] MEDS: Acetaminophen Supp 650 MG SUPP.RECT PR (05:25)
[2022-04-09 05:29] LABS: Band Neutrophils Percent 17 % (3-5); Lymphocytes Absolute Manual 0.5 X10*3/uL (1.2-4.9); Lymphocytes Percent Manual 5 % (20-40); Monocytes Absolute Manual 0.6 X10*3/uL (0.1-1.2); Monocytes Percent Manual 6 % (2-11); Neutrophils Absolute Manual 8.8 X10*3/uL (2.0-8.3); Neutrophils Percent Manual 72 % (45-73); Nucleated Red Blood Cells 1 /100WBC (0-0)
[2022-04-09 05:31] LABS: Burr Cells 3+ (>5) /OIF; Dohle Bodies PRESENT; Hypochromasia 1+ (5-14) /OIF; Large Platelet PRESENT; Microcytosis 1+ (5-14) /OIF; Platelet Estimate DECREASED (NORMAL); Platelet Morphology Comment NOTED; RBC Morphology NOTED; Schistocytes 1+ (0-2) /OIF; Toxic Granulation PRESENT; Toxic Vacuolation PRESENT
[2022-04-09 05:34] LABS: Albumin Level 2.4 g/dL (3.5-5.0); Anion Gap 20 (12-20); Blood Urea Nitrogen 106 mg/dL (9-16); Calcium 7.5 mg/dL (8.4-10.2); Carbon Dioxide 21 mmol/L (22-29); Chloride 104 mmol/L (96-108); Creatinine Clr Calc Pharmacy 27.9; Estimated Glomerular Filt Rate 18; Glucose Random 231 mg/dL (60-115); Magnesium 2.6 mg/dL (1.6-2.6); Phosphorus 5.1 mg/dL (2.7-4.5); Sodium 141 mmol/L (135-145)
[2022-04-09 05:37] LABS: Fibrinogen > 700 MG/DL (259-690)
[2022-04-09] MEDS: Insulin Lispro 100 UNIT/ML 3 ML VIAL SUBCUT ×4 (05:53→23:49)
[2022-04-09] MEDS: Lactated Ringers 1,000 ML 100 ML IVCONT (06:13)
--- NOTE | 2022-04-09 06:19 | PC.NURSE ---
assumed care at 1900 pt A&O but vague, Afib on tele Hr 80s-100's on cardizem drip, Bp stable on vasopressin CVP 8, remains on bipap 12/5 30% rate 10 throughout shift tolerates well, break for mouth care placed on 5l nc tolerates well, UO >50cc per hour. pt medicated with dilaudid for pain c/o back spams. Temp 100.8 WI tylenol given. Dressing to right hip changed, new dressing applied to right outer knee. Repo q2 hours.
[2022-04-09] MEDS: Ampicillin Sodium/Sulbactam Na 3 GM in 0.9 % Sodium Chloride 100 ML IV ×2 (08:14→20:05)
--- NOTE | 2022-04-09 08:29 | CA_ITS ---
Transthoracic Echocardiogram Patient (Last, First, Middle): Tony Brian S Gender: Male Date of : 1955 Age: 66 Procedure Date: 04/09/2022 Procedure Type: Transthoracic Echocardiogram Location: ICU Height: 172.72 cm Weight: 128.82 kg BSA: 2.37 m2 Heart Rate: bpm BP: 134 / 59 mmHg Turn Down Worker: RANDELL Referring MD: José Freire MD Symptoms: R/o Endocarditis Study Quality: Technically Difficult/Contrast ECG Rhythm: Atrial Fibrillation Conclusions: - The left ventricular systolic function is normal. The calculated ejection fraction is 60% by biplane method. - There is mild to moderately decreased right ventricular systolic function. - The left atrium is severely dilated. - There is mild calcification of the aortic valve. - There is mild mitral annular calcification. Findings Procedure Information Contrast agent, definity, is being given per protocol without apparent complications. Left Ventricle Normal left ventricular cavity size. There is normal left ventricular wall thickness. The left ventricular systolic function is normal. The calculated ejection fraction is 60% by biplane method. There is no evidence of regional wall motion abnormalities. Diastolic function is indeterminate on the basis of available data. Right Ventricle Mildly increased right ventricular cavity size. There is mild to moderately decreased right ventricular systolic function. Atria The left atrium is severely dilated. The right atrium is normal in size. Aortic Valve There is a normal trileaflet aortic valve. There is mild calcification of the aortic valve. There is no aortic valve stenosis. There is no aortic valve regurgitation. Mitral Valve The mitral valve appears normal. There is mild mitral annular calcification. There is trace mitral valve regurgitation. There is no mitral valve stenosis. Pulmonic Valve The pulmonic valve is likely normal. Tricuspid Valve Normal tricuspid valve structure. There is mild tricuspid valve regurgitation. Mild pulmonary hypertension is present. Great Vessels The asc aorta is normal in size. Venous The inferior vena cava was not well visualized. Pericardium/Pleural There is no evidence of pericardial effusion. Prior Study Comparison No significant change compared to prior study dated: 01/09/2022. Recommendations, Care & Conclusions Consider a RONIT if clinically appropriate. Measurements 2D Linear Measurements IVSd: 0.99 0.6-0.9/0.6-1.0 cm LVIDd: 5.81 3.9-5.3/4.2-5.9 cm LVIDd Index: 2.45 2.4-3.2/2.2-3.1 cm/m2 LVIDs: 4.16 2.0-3.6 cm LVPWd: 1.05 0.7-1.1 cm LA Diam: 6.40 2.7-3.8/3.0-4.0 cm LAIDs Index: 2.70 1.5-2.3 cm/m2 LV Mass: 298.73 67-162/88-224 g LV Mass Index: 126.05 43-95/49-115 g/m2 LVOT Diam: 2.20 3.0+(-)1.3 cm 2D Systolic Function EF 4C: 57.90 >55% EF 2C: 64.60 >55% EF BiP: 60.00 >55% Aortic Valve AoV Pk James: 1.55 AoV Mn James: 1.09 AoV VTI: 0.22 AoV Pk Grad: 10.00 Aov Mn Grad: 6.00 AMADOR Cont.VTI: 2.53 LVOT LVOT Pk James: 1.02 LVOT Mn James: 0.71 LVOT VTI: 0.15 LVOT Pk Grad: 4.00 LVOT Mn Grad: 2.00 LVOT Diam: 2.20 LVOT Area: 3.80 Right Ventricle TAPSE (mm): 13.50 TVS' James: 14.70 Tricuspid Valve TR Pk James: 2.72 TR Pk Grad: 30.00 RVSP: 43.00 Great Vessels Aorta Sinus of Valsalva: 3.40 2.0-3.5 cm Ao Asc: 3.50 2.1-3.4 cm Pulmonary Valve PV Pk James: 1.28 Peak PV Grad: 7.00 Updated in Other Vendor System with Status of Final Real Norris MD electronically signed on 04/09/2022 4:06:02 PM with status of Final
[2022-04-09] MEDS: Digoxin 0.5 MG/2 ML AMPUL 0.125 MG IVPUSH (10:48)
[2022-04-09] MEDS: Metoprolol Tartrate 5 MG/5 ML VIAL IVPUSH ×2 (10:48→16:24)
--- NOTE | 2022-04-09 10:48 | PM.CCPN ---
Subjective Subjective Date of Service: 04/09/22 Interval History: 66-year-old morbidly obese type 2 diabetic and hypertensive and hyperlipidemic with chronic stasis dermatitis on the floor for 2 days of bed and because of weakness found to be in rapid atrial fibrillation with an underlying permanent pacemaker known background diagnosis of diastolic CHF and he presented without acutely in large part due to the rapid atrial fibrillation and clearly septic and looks like the source was his cellulitis and is the blood cultures are growing group G strep and he he was initially on vancomycin and ceftriaxone he is currently on Unasyn He remains dependent on the continued IV Cardizem drip as well as the p.r.n. Lopressor and his daily digoxin for his rate control and supported with the BiPAP which he depends on for his CHF and still has signs of a DIC remaining but no complications that I could see no acrocyanosis and his renal failure which was acute on chronic is now turning the corner and resolving these no longer oliguric and we follow his CVP to gauge are fluid intake Critical Care Time (minutes): 45 Physical Exam Vital Signs: Vital Signs: Last Vital Signs Temp 98.8 F 04/09/22 10:00 Pulse 139 H 04/09/22 10:00 Resp 21 H 04/09/22 10:00 BP 148/55 H 04/09/22 10:00 Pulse Ox 94 04/09/22 10:00 O2 Del Method 04/09/22 10:00 O2 Flow Rate 4 04/09/22 10:00 FiO2 30 04/09/22 08:00 Oxygen Flow Rate 9 04/07/22 13:10 BMI result Body Mass Index 43.2 More awake difficult to understand when he tries to communicate this may be a chronic issue and not an acute Bedside echo with preserved left ventricular systolic function and right ventricular as well no primary valve or pericardial disease Abdomen although he says he is tender all of our imaging is as been negative and is no palpable mass or organomegaly positive bowel sounds Lungs without adventitious sounds Objective Data Labs 04/09/22 04:27 04/09/22 04:27 Labs: Laboratory Results - last 24 hr 04/08/22 04/08/22 04/08/22 11:23 14:08 16:55 WBC RBC Hgb Hct MCV MCH MCHC RDW Plt Count MPV Immature Gran % (Auto) Neut % (Auto) Lymph % (Auto) [place] % (Auto) Eos % (Auto) Baso % (Auto) Lymph # (Auto) [place] # (Auto) Eos # (Auto) Baso # (Auto) Abs Immat Gran (auto) Absolute Neuts (auto) Absolute Nucleated RBC Nucleated RBC % (auto) Neutrophils % (Manual) Band Neutrophils % Lymphocytes % (Manual) Monocytes % (Manual) Abs Neuts (Manual) Lymphocytes # (Manual) Monocytes # (Manual) Nucleated RBCs Toxic Granulation Toxic Vacuolation Dohle Bodies Platelet Estimate Large Platelets Plt Morphology Comment RBC Morphology Hypochromasia Microcytosis Joseph Cells Schistocytes PT INR APTT Fibrinogen VBG pH VBG pCO2 VBG pO2 VBG HCO3 VBG O2 Saturation VBG Base Excess Sodium 138 Potassium 4.4 Chloride 103 Carbon Dioxide 17 L Anion Gap 22 H BUN 94 H Creatinine 3.63 H Estim Creat Clear Calc 25.7 Estimated GFR 17 POC Glucose 195 H Random Glucose 270 H Lactic Acid Lactic Acid F/U @ 2Hr Calcium 7.4 L Phosphorus Magnesium Total Creatine Kinase Albumin Random Vancomycin 11.0 L 04/08/22 04/08/22 04/08/22 16:55 16:59 17:40 WBC RBC Hgb Hct MCV MCH MCHC RDW Plt Count MPV Immature Gran % (Auto) Neut % (Auto) Lymph % (Auto) [place] % (Auto) Eos % (Auto) Baso % (Auto) Lymph # (Auto) [place] # (Auto) Eos # (Auto) Baso # (Auto) Abs Immat Gran (auto) Absolute Neuts (auto) Absolute Nucleated RBC Nucleated RBC % (auto) Neutrophils % (Manual) Band Neutrophils % Lymphocytes % (Manual) Monocytes % (Manual) Abs Neuts (Manual) Lymphocytes # (Manual) Monocytes # (Manual) Nucleated RBCs Toxic Granulation Toxic Vacuolation Dohle Bodies Platelet Estimate Large Platelets Plt Morphology Comment RBC Morphology Hypochromasia Microcytosis [place] Cells Schistocytes PT INR APTT Fibrinogen VBG pH 7.31 L VBG pCO2 36 VBG pO2 62 VBG HCO3 18 L VBG O2 Saturation 85.0 VBG Base Excess -6.6 Sodium Potassium Chloride Carbon Dioxide Anion Gap BUN Creatinine Estim Creat Clear Calc Estimated GFR POC Glucose 236 H Random Glucose Lactic Acid 2.1 H* Lactic Acid F/U @ 2Hr Calcium Phosphorus Magnesium Total Creatine Kinase Albumin Random Vancomycin 04/08/22 04/08/22 04/09/22 19:23 23:26 04:27 WBC 9.9 RBC 4.31 L Hgb 11.0 L Hct 33.3 L MCV 77.3 L MCH 25.5 L MCHC 33.0 RDW 17.8 H Plt Count 84 L MPV Not Reportable Immature Gran % (Auto) Cancelled Neut % (Auto) Cancelled Lymph % (Auto) Cancelled [place] % (Auto) Cancelled Eos % (Auto) Cancelled Baso % (Auto) Cancelled Lymph # (Auto) Cancelled [place] # (Auto) Cancelled Eos # (Auto) Cancelled Baso # (Auto) Cancelled Abs Immat Gran (auto) Cancelled Absolute Neuts (auto) Cancelled Absolute Nucleated RBC 0.000 Nucleated RBC % (auto) 0.0 Neutrophils % (Manual) 72 Band Neutrophils % 17 H Lymphocytes % (Manual) 5 L Monocytes % (Manual) 6 Abs Neuts (Manual) 8.8 H Lymphocytes # (Manual) 0.5 L Monocytes # (Manual) 0.6 Nucleated RBCs 1 H Toxic Granulation PRESENT Toxic Vacuolation PRESENT Dohle Bodies PRESENT Platelet Estimate DECREASED Large Platelets PRESENT Plt Morphology Comment NOTED RBC Morphology NOTED Hypochromasia 1+ (5-14) Microcytosis 1+ (5-14) [place] Cells 3+ (>5) Schistocytes 1+ (0-2) PT INR APTT Fibrinogen VBG pH VBG pCO2 VBG pO2 VBG HCO3 VBG O2 Saturation VBG Base Excess Sodium Potassium Chloride Carbon Dioxide Anion Gap BUN Creatinine Estim Creat Clear Calc Estimated GFR POC Glucose 221 H Random Glucose Lactic Acid Lactic Acid F/U @ 2Hr 1.9 Calcium Phosphorus Magnesium Total Creatine Kinase Albumin Random Vancomycin 04/09/22 04/09/22 04/09/22 04:27 04:27 04:27 WBC RBC Hgb Hct MCV MCH MCHC RDW Plt Count MPV Immature Gran % (Auto) Neut % (Auto) Lymph % (Auto) [place] % (Auto) Eos % (Auto) Baso % (Auto) Lymph # (Auto) [place] # (Auto) Eos # (Auto) Baso # (Auto) Abs Immat Gran (auto) Absolute Neuts (auto) Absolute Nucleated RBC Nucleated RBC % (auto) Neutrophils % (Manual) Band Neutrophils % Lymphocytes % (Manual) Monocytes % (Manual) Abs Neuts (Manual) Lymphocytes # (Manual) Monocytes # (Manual) Nucleated RBCs Toxic Granulation Toxic Vacuolation Dohle Bodies Platelet Estimate Large Platelets Plt Morphology Comment RBC Morphology Hypochromasia Microcytosis [place] Cells Schistocytes PT 77.9 H INR 6.3 H* APTT 88.3 H* Fibrinogen > 700 H VBG pH VBG pCO2 VBG pO2 VBG HCO3 VBG O2 Saturation VBG Base Excess Sodium 141 Potassium 4.0 Chloride 104 Carbon Dioxide 21 L Anion Gap 20 BUN 106 H Creatinine 3.35 H Estim Creat Clear Calc 27.9 Estimated GFR 18 POC Glucose Random Glucose 231 H Lactic Acid Lactic Acid F/U @ 2Hr Calcium 7.5 L Phosphorus 5.1 H Magnesium 2.6 Total Creatine Kinase 2731 H Albumin 2.4 L Random Vancomycin 04/09/22 04:32 WBC RBC Hgb Hct MCV MCH MCHC RDW Plt Count MPV Immature Gran % (Auto) Neut % (Auto) Lymph % (Auto) [place] % (Auto) Eos % (Auto) Baso % (Auto) Lymph # (Auto) [place] # (Auto) Eos # (Auto) Baso # (Auto) Abs Immat Gran (auto) Absolute Neuts (auto) Absolute Nucleated RBC Nucleated RBC % (auto) Neutrophils % (Manual) Band Neutrophils % Lymphocytes % (Manual) Monocytes % (Manual) Abs Neuts (Manual) Lymphocytes # (Manual) Monocytes # (Manual) Nucleated RBCs Toxic Granulation Toxic Vacuolation Dohle Bodies Platelet Estimate Large Platelets Plt Morphology Comment RBC Morphology Hypochromasia Microcytosis [place] Cells Schistocytes PT INR APTT Fibrinogen VBG pH 7.39 VBG pCO2 31 VBG pO2 59 VBG HCO3 19 L VBG O2 Saturation 87.0 VBG Base Excess -4.2 Sodium Potassium Chloride Carbon Dioxide Anion Gap BUN Creatinine Estim Creat Clear Calc Estimated GFR POC Glucose Random Glucose Lactic Acid Lactic Acid F/U @ 2Hr Calcium Phosphorus Magnesium Total Creatine Kinase Albumin Random Vancomycin Microbiology Microbiology Results: Microbiology 04/07/22 12:52 Blood - Venous Blood Culture - Preliminary Group G streptococcus 04/07/22 11:40 Blood - Venous Blood Culture - Preliminary Group G streptococcus 04/07/22 Unknown Urine clean catch - Urine [place] top Urine Culture - Final No growth. Progress Note: A&P Assessment and plan (1) Sepsis associated hypotension: Status: Acute (2) Rhabdomyolysis: Status: Acute (3) Acute renal failure: Status: Acute (4) Elevated liver enzymes: Status: Acute (5) Elevated troponin: Status: Acute (6) Cellulitis: Status: Acute (7) Atrial fibrillation with RVR: Status: Acute (8) HLD (hyperlipidemia): Status: Acute (9) HTN (hypertension): Status: Acute (10) Osteoarthritis of left knee: Status: Acute (11) Osteoarthritis of right knee: Status: Acute (12) COPD (chronic obstructive pulmonary disease): Status: Acute (13) Bilateral leg edema: Status: Acute (14) Moderate major depression: Status: Acute (15) Difficulty sleeping: Status: Acute (16) Adult general medical exam: Status: Acute (17) Diabetic foot: Status: Acute (18) Screening for prostate cancer: Status: Acute (19) Leg ulcer: Status: Acute (20) Chronic heart failure with preserved ejection fraction (HFpEF): Status: Acute (21) Cardiac pacemaker in situ: Status: Acute (22) Diabetes mellitus: Status: Acute (23) Controlled diabetes mellitus with diabetic polyneuropathy: Status: Acute (24) Cellulitis: Status: Acute (25) Chronic wound of extremity: Status: Acute (26) Chronic pain syndrome: Status: Acute (27) Current use of anticoagulant therapy: Status: Acute (28) Primary osteoarthritis of knees, bilateral: Status: Acute (29) Gout: Status: Acute (30) Atrial fibrillation: Status: Acute (31) Obesity: Status: Acute (32) Obstructive sleep apnea: Status: Acute (33) Chronic asthma: Status: Acute (34) Gout: Status: Acute Plan Continue to support as above Quality Stroke Does the patient have a stroke diagnosis?: No VTE Prior VTE?: No VTE Risk Level:: Medical - moderate - high VTE Device Contraindication: N/A - Device Ordered VTE Drug Contraindication: Treatment Not Tolerated
[2022-04-09 11:53] LABS: Glucose, Whole Blood 203 mg/dL (60-115)
[2022-04-09 12:09] LABS: Alanine Aminotransferase 94 U/L (0-40); Albumin Level 2.5 g/dL (3.5-5.0); Alkaline Phosphatase 62 U/L (39-117); Aspartate Amino Transferase 132 U/L (5-37); Bilirubin Direct 3.7 mg/dL (0.0-0.5); Bilirubin Total 5.1 mg/dL (0.0-1.0); Total Protein 4.7 g/dL (6.5-8.0)
[2022-04-09 12:33] LABS: Erythrocyte Sedimentation Rate 102 MM/HR (0-15)
[2022-04-09] MEDS: dilTIAZem HCL 125 MG in 0.9 % Sodium Chloride 100 ML 15 MG IVCONT (16:24)
[2022-04-09 18:02] LABS: Glucose, Whole Blood 221 mg/dL (60-115)
[2022-04-09 23:49] LABS: Glucose, Whole Blood 204 mg/dL (60-115)
[2022-04-10] VITALS (28 sets, daily range): BP systolic 109–151; BP diastolic 48–98; PULSE 20–120; RESP 15–27; TEMP 36.6–38.4; O2SAT 90–96; BMI 42.8
[2022-04-10] MEDS: Lactated Ringers 1,000 ML 80 ML IVCONT (00:16)
[2022-04-10] MEDS: HYDROmorphone HCl 0.5 MG/0.5 ML SYRINGE IVPUSH ×5 (00:53→20:19)
[2022-04-10] MEDS: dilTIAZem HCL 125 MG in 0.9 % Sodium Chloride 100 ML 10 MG IVCONT ×2 (02:48→13:31)
[2022-04-10 04:59] LABS: VBG Base Excess -0.3 mmol/L; VBG HCO3 23 mmol/L (22-26); VBG pCO2 36 mmHg; VBG pH 7.42 (7.32-7.43); VBG pO2 55 mmHg
[2022-04-10 05:01] LABS: Venous Blood Gas Refer to POC result
[2022-04-10 05:11] LABS: Basophils Percent Auto 0.2 % (0-2); Hemoglobin 11.1 g/dl (14.0-18.0); PLT ABN DIST 1; SCAN SMEAR FLAG 1
[2022-04-10 05:13] LABS: Eosinophils Absolute Auto 0.1 X10*3/uL (0.0-0.4); Eosinophils Percent Auto 0.7 % (0-4); Hematocrit 33.7 % (42.0-52.0); Imm Gran Abs Auto 0.13 X10*3/uL (0.00-0.03); Imm Gran Pct Auto 1.5 % (0.0-0.4); Lymphocytes Absolute Auto 0.6 X10*3/uL (1.2-4.9); Lymphocytes Percent Auto 6.2 % (20-40); Mean Corpuscular HGB Conc 32.9 g/dl (31.0-36.0); Mean Corpuscular Hemoglobin 25.1 pg (27.0-33.0); Mean Corpuscular Volume 76.2 fL (80.0-98.0); Monocytes Absolute Auto 0.6 X10*3/uL (0.1-1.2); Monocytes Percent Auto 7.2 % (2-11); Neutrophils Absolute Auto 7.5 x10*3/uL (2.0-8.3); Neutrophils Percent Auto 84.2 % (45-73); Red Blood Count 4.42 X10*6/uL (4.60-5.80); Red Cell Distribution Width 17.8 % (11.0-16.0); White Blood Count 8.9 X10*3/uL (4.8-10.8)
[2022-04-10 05:15] LABS: MANUAL DIFF FLAG NO; Platelet Count 87 X10*3/uL (160-400)
[2022-04-10 05:24] LABS: Prothrombin Time 77.7 SEC (10.0-13.1)
[2022-04-10 05:26] LABS: INTERNATIONAL NORM RATIO 6.3 (0.9-1.1); Partial Thromboplastin Time 70.6 SEC (26.0-36.4)
[2022-04-10 05:32] LABS: Albumin Level 2.3 g/dL (3.5-5.0); Anion Gap 19 (12-20); Blood Urea Nitrogen 104 mg/dL (9-16); Calcium 7.6 mg/dL (8.4-10.2); Carbon Dioxide 23 mmol/L (22-29); Chloride 110 mmol/L (96-108); Creatinine Clr Calc Pharmacy 35.9; Estimated Glomerular Filt Rate 25; Glucose Random 172 mg/dL (60-115); Magnesium 2.9 mg/dL (1.6-2.6); Phosphorus 3.4 mg/dL (2.7-4.5); Potassium 3.6 mmol/L (3.3-5.1); Sodium 148 mmol/L (135-145)
[2022-04-10] MEDS: Dextrose 5 % and Lactated Ring 1,000 ML 80 ML IVCONT (06:29)
[2022-04-10] MEDS: Insulin Lispro 100 UNIT/ML 3 ML VIAL SUBCUT ×3 (06:29→18:20)
[2022-04-10] MEDS: Levothyroxine Sodium 100 MCG/5 ML VIAL 37.5 MCG IVPUSH (06:30)
[2022-04-10] MEDS: KCl 20 mEq in 0.45% Sod 20 MEQ/1,000 ML IV.SOLN 80 MEQ IVCONT ×2 (06:38→15:18)
[2022-04-10] MEDS: Ampicillin Sodium/Sulbactam Na 3 GM in 0.9 % Sodium Chloride 100 ML IV ×2 (08:26→20:18)
[2022-04-10] MEDS: Metoprolol Tartrate 5 MG/5 ML VIAL IVPUSH ×2 (08:50→18:20)
[2022-04-10] MEDS: Digoxin 0.5 MG/2 ML AMPUL 0.125 MG IVPUSH (09:34)
--- NOTE | 2022-04-10 11:20 | MHC.CLN ---
F/U PT WITH INCREASED NUTRITION RISK R/T LOW KONG AND NPO STATUS CURRENTLY DAY 3 NPO WHEN DIET TO ADVANCE; RECOMMEND 2200DM 2GM NA DIET IN ADDITION, RECOMMEND ADDING ENSURE MAX BID TO INCREASE PO PROTEIN SUPP TO PROVIDE 300KCALS, 60G PROTEIN WITH 100% ACCEPTANCE MONITOR FOR DIET ADVANCEMENT AND SKIN CLOSELY
[2022-04-10 11:41] LABS: Glucose, Whole Blood 155 mg/dL (60-115)
--- NOTE | 2022-04-10 15:06 | PM.CCPN ---
Subjective Subjective Date of Service: 04/10/22 Interval History: Mr. Brian is a morbidly obese 66-year-old functionally independent living alone presented with septic shock growing group G Streptococcus from 2/2 blood cultures probably stemming from cellulitis and he was found on the floor with evidence of some head trauma and with a S superficial hematoma on his head so he probably did have a either weakness clumsiness with a fall or syncope at home add came in with acute on chronic renal failure in this case related to not just ATN but to rhabdomyolysis in addition definitely has an acute on chronic diastolic CHF fairly preserved ejection fraction also has chronic stasis dermatitis which was the predecessor to the to the cellulitis has underlying COPD chronic atrial fibrillation with a backup dual-chamber pacemaker for high-grade AV block put in several months ago and the concern I have of the sed rate of 102 and very slow resolution of his clinical status right now is the possibility that he has either seated especially 1 of these far in bodies likely pacemaker or any prosthetic etc. or he possibly has an underlying endocarditis and that may have to be studied a little bit more widely Karine think he is going to have certainly a greater than 14 day requirement for antibiotic coverage which right now is Unasyn because not only bacteremia but I do think he is going to have an evidence of metastatic infection Rhabdomyolysis and therefore is the renal function resolving beautifully and the persistent rapid atrial fibrillation which initially was up to 200 with very significant the heart failure is also much improved is on a persistent Cardizem drip at 10 milligrams/hour with p.r.n. pushes of Lopressor and he has gotten digoxin he has been fully loaded and his heart rates are averaging about 100 which is appropriate for circumstances and for the 1st time in 2 and half days he is able to come off the BiPAP which was used to compensate for his CHF and to bring his heart rate down because of his elevated work of breathing and it worked at that did perfectly He is awaken trying to communicate but the people who know him from his chart stated this is not him yet at this point even though he is increasingly awake but he it is very hard for him to say anything intelligible he also presented with DIC and a significant coagulopathy but no bleeding manifestations but he was on apixaban before he came in Critical Care Time (minutes): 45 Physical Exam Vital Signs: Vital Signs: Last Vital Signs Temp 98.3 F 04/10/22 12:00 Pulse 107 H 04/10/22 13:00 Resp 19 04/10/22 13:00 BP 151/57 H 04/10/22 13:00 Pulse Ox 93 04/10/22 13:00 O2 Del Method 04/10/22 13:00 O2 Flow Rate 4 04/10/22 13:00 FiO2 30 04/10/22 08:00 Oxygen Flow Rate 9 04/07/22 13:10 BMI result Body Mass Index 42.8 Awake alert and oriented Cardiac exam by echo again showing ejection fraction 50-55% with some prominence to the right ventricle no primary valve or pericardial disease His abdomen soft with no again a megaly but no feedings just yet I do not think he has a it awake enough And chest without adventitious sounds he is tachypneic but with much less diaphragmatic effort Objective Data Labs 04/10/22 04:44 04/10/22 04:44 Labs: Laboratory Results - last 24 hr 04/09/22 04/09/22 04/09/22 04:27 17:57 23:43 WBC RBC Hgb Hct MCV MCH MCHC RDW Plt Count MPV Immature Gran % (Auto) Neut % (Auto) Lymph % (Auto) [place] % (Auto) Eos % (Auto) Baso % (Auto) Lymph # (Auto) [place] # (Auto) Eos # (Auto) Baso # (Auto) Abs Immat Gran (auto) Absolute Neuts (auto) Absolute Nucleated RBC Nucleated RBC % (auto) Smear Path Review SEE NOTE PT INR APTT VBG pH VBG pCO2 VBG pO2 VBG HCO3 VBG O2 Saturation VBG Base Excess Sodium Potassium Chloride Carbon Dioxide Anion Gap BUN Creatinine Estim Creat Clear Calc Estimated GFR POC Glucose 221 H 204 H Random Glucose Calcium Phosphorus Magnesium Total Creatine Kinase Albumin 04/10/22 04/10/22 04/10/22 04:44 04:44 04:44 WBC 8.9 RBC 4.42 L Hgb 11.1 L Hct 33.7 L MCV 76.2 L MCH 25.1 L MCHC 32.9 RDW 17.8 H Plt Count 87 L MPV Not Reportable Immature Gran % (Auto) 1.5 H Neut % (Auto) 84.2 H Lymph % (Auto) 6.2 L [place] % (Auto) 7.2 Eos % (Auto) 0.7 Baso % (Auto) 0.2 Lymph # (Auto) 0.6 L [place] # (Auto) 0.6 Eos # (Auto) 0.1 Baso # (Auto) 0.0 Abs Immat Gran (auto) 0.13 H Absolute Neuts (auto) 7.5 Absolute Nucleated RBC 0.000 Nucleated RBC % (auto) 0.0 Smear Path Review PT 77.7 H INR 6.3 H* APTT 70.6 H* D VBG pH VBG pCO2 VBG pO2 VBG HCO3 VBG O2 Saturation VBG Base Excess Sodium 148 H Potassium 3.6 Chloride 110 H Carbon Dioxide 23 Anion Gap 19 BUN 104 H Creatinine 2.61 H Estim Creat Clear Calc 35.9 Estimated GFR 25 POC Glucose Random Glucose 172 H Calcium 7.6 L Phosphorus 3.4 Magnesium 2.9 H Total Creatine Kinase 1105 H Albumin 2.3 L 04/10/22 04/10/22 04:52 11:35 WBC RBC Hgb Hct MCV MCH MCHC RDW Plt Count MPV Immature Gran % (Auto) Neut % (Auto) Lymph % (Auto) [place] % (Auto) Eos % (Auto) Baso % (Auto) Lymph # (Auto) [place] # (Auto) Eos # (Auto) Baso # (Auto) Abs Immat Gran (auto) Absolute Neuts (auto) Absolute Nucleated RBC Nucleated RBC % (auto) Smear Path Review PT INR APTT VBG pH 7.42 VBG pCO2 36 VBG pO2 55 VBG HCO3 23 VBG O2 Saturation 83.0 VBG Base Excess -0.3 Sodium Potassium Chloride Carbon Dioxide Anion Gap BUN Creatinine Estim Creat Clear Calc Estimated GFR POC Glucose 155 H Random Glucose Calcium Phosphorus Magnesium Total Creatine Kinase Albumin Microbiology Microbiology Results: Microbiology 04/07/22 12:52 Blood - Venous Blood Culture - Final Group G streptococcus 04/07/22 11:40 Blood - Venous Blood Culture - Final Group G streptococcus 04/07/22 Unknown Urine clean catch - Urine goodwin top Urine Culture - Final No growth. Progress Note: A&P Assessment and plan (1) Sepsis associated hypotension: Status: Acute (2) Rhabdomyolysis: Status: Acute (3) Acute renal failure: Status: Acute (4) Elevated liver enzymes: Status: Acute (5) Elevated troponin: Status: Acute (6) Cellulitis: Status: Acute (7) Atrial fibrillation with RVR: Status: Acute (8) HLD (hyperlipidemia): Status: Acute (9) HTN (hypertension): Status: Acute (10) Osteoarthritis of left knee: Status: Acute (11) Osteoarthritis of right knee: Status: Acute (12) COPD (chronic obstructive pulmonary disease): Status: Acute (13) Bilateral leg edema: Status: Acute (14) Moderate major depression: Status: Acute (15) Difficulty sleeping: Status: Acute (16) Adult general medical exam: Status: Acute (17) Diabetic foot: Status: Acute (18) Screening for prostate cancer: Status: Acute (19) Leg ulcer: Status: Acute (20) Chronic heart failure with preserved ejection fraction (HFpEF): Status: Acute (21) Cardiac pacemaker in situ: Status: Acute (22) Diabetes mellitus: Status: Acute (23) Controlled diabetes mellitus with diabetic polyneuropathy: Status: Acute (24) Cellulitis: Status: Acute (25) Chronic wound of extremity: Status: Acute (26) Chronic pain syndrome: Status: Acute (27) Current use of anticoagulant therapy: Status: Acute (28) Primary osteoarthritis of knees, bilateral: Status: Acute (29) Gout: Status: Acute (30) Atrial fibrillation: Status: Acute (31) Obesity: Status: Acute (32) Obstructive sleep apnea: Status: Acute (33) Chronic asthma: Status: Acute (34) Gout: Status: Acute Plan So the plan of course is exactly as above following his CVP for volume replacement currently using half normal saline because of the mild hypernatremia and I think morbid evaluation such as a gallium scan wean O2 to look at the a total body extent of possible metastatic infection and maybe even transesophageal echo given the group G strep bacteremia Quality Stroke Does the patient have a stroke diagnosis?: No VTE Prior VTE?: No VTE Risk Level:: Medical - moderate - high VTE Device Contraindication: N/A - Device Ordered VTE Drug Contraindication: Treatment Not Tolerated
[2022-04-10 16:38] LABS: VBG Base Excess 0.9 mmol/L; VBG HCO3 24 mmol/L (22-26); VBG pCO2 35 mmHg; VBG pH 7.44 (7.32-7.43); VBG pO2 45 mmHg
[2022-04-10 17:10] LABS: Anion Gap 17 (12-20); Blood Urea Nitrogen 95 mg/dL (9-16); Calcium 7.7 mg/dL (8.4-10.2); Carbon Dioxide 22 mmol/L (22-29); Chloride 114 mmol/L (96-108); Creatinine Clr Calc Pharmacy 41.5; Estimated Glomerular Filt Rate 29; Glucose Random 160 mg/dL (60-115); Potassium 4.3 mmol/L (3.3-5.1); Sodium 149 mmol/L (135-145)
[2022-04-10 18:01] LABS: Glucose, Whole Blood 171 mg/dL (60-115)
[2022-04-10 20:03] LABS: Venous Blood Gas Refer to POC result
[2022-04-10] MEDS: dilTIAZem HCL 125 MG in 0.9 % Sodium Chloride 100 ML 15 MG IVCONT (23:41)
[2022-04-11] VITALS (30 sets, daily range): BP systolic 115–170; BP diastolic 52–86; PULSE 78–138; RESP 14–25; TEMP 36.8–37.7; O2SAT 92–98; BMI 46.3
[2022-04-11 00:26] LABS: Glucose, Whole Blood 161 mg/dL (60-115)
[2022-04-11] MEDS: Metoprolol Tartrate 5 MG/5 ML VIAL IVPUSH ×3 (01:36→10:02)
[2022-04-11] MEDS: HYDROmorphone HCl 0.5 MG/0.5 ML SYRINGE IVPUSH ×4 (03:10→21:35)
[2022-04-11] MEDS: KCl 20 mEq in 0.45% Sod 20 MEQ/1,000 ML IV.SOLN 80 MEQ IVCONT (03:20)
[2022-04-11 05:26] LABS: VBG Base Excess -0.5 mmol/L; VBG HCO3 23 mmol/L (22-26); VBG pCO2 34 mmHg; VBG pH 7.43 (7.32-7.43); VBG pO2 48 mmHg
[2022-04-11 05:32] LABS: MANUAL DIFF FLAG NO
[2022-04-11 05:43] LABS: Basophils Percent Auto 0.3 % (0-2); Eosinophils Percent Auto 0.3 % (0-4); Hematocrit 36.2 % (42.0-52.0); Hemoglobin 11.8 g/dl (14.0-18.0); Imm Gran Abs Auto 0.28 X10*3/uL (0.00-0.03); Lymphocytes Absolute Auto 0.7 X10*3/uL (1.2-4.9); Lymphocytes Percent Auto 7.8 % (20-40); Mean Corpuscular HGB Conc 32.6 g/dl (31.0-36.0); Mean Corpuscular Hemoglobin 25.2 pg (27.0-33.0); Mean Corpuscular Volume 77.4 fL (80.0-98.0); Mean Platelet Volume 12.4 fL (9.4-12.4); Monocytes Absolute Auto 0.6 X10*3/uL (0.1-1.2); Monocytes Percent Auto 6.6 % (2-11); NRBC Pct Auto 0.2 /100WBC (0.0-0.2); Neutrophils Absolute Auto 7.6 x10*3/uL (2.0-8.3); Platelet Count 129 X10*3/uL (160-400); Red Blood Count 4.68 X10*6/uL (4.60-5.80); Red Cell Distribution Width 18.4 % (11.0-16.0); White Blood Count 9.3 X10*3/uL (4.8-10.8)
[2022-04-11 05:53] LABS: Prothrombin Time 81.5 SEC (10.0-13.1)
[2022-04-11 05:56] LABS: INTERNATIONAL NORM RATIO 6.6 (0.9-1.1)
[2022-04-11 06:21] LABS: Albumin Level 2.2 g/dL (3.5-5.0); Anion Gap 18 (12-20); Blood Urea Nitrogen 87 mg/dL (9-16); Calcium 7.7 mg/dL (8.4-10.2); Carbon Dioxide 23 mmol/L (22-29); Chloride 118 mmol/L (96-108); Estimated Glomerular Filt Rate 33; Glucose Random 175 mg/dL (60-115); Magnesium 3.1 mg/dL (1.6-2.6); Sodium 155 mmol/L (135-145)
[2022-04-11 06:23] LABS: Glucose, Whole Blood 173 mg/dL (60-115)
[2022-04-11 06:34] LABS: Venous Blood Gas Refer to POC result
[2022-04-11] MEDS: Ampicillin Sodium/Sulbactam Na 3 GM in 0.9 % Sodium Chloride 100 ML IV ×2 (07:22→20:25)
[2022-04-11] MEDS: Dextrose 5 % 1,000 ML 100 ML IVCONT (07:22)
--- NOTE | 2022-04-11 07:37 | P.PNCC_ITS ---
Subjective Subjective Date of Service: 04/11/22 Interval History: 66-year-old morbidly obese male type 2 diabetic hypertensive hyperlipidemic with chronic persistent atrial fibrillation presented with a combination of sepsis from a group G strep a growing it to other to blood cultures probably coming from what appears to be his cellulitis and had the additional complication after laying on the floor for 2 days of rhabdomyolysis and acute kidney failure And elevated LFTs and also DIC but without any apparent hemorrhagic complication and now we see each day making progress renal insufficiency is improving LFTs are diminishing less DIC according to laboratory and mental status is lightening up as well I think to the point now because he does not depend on BiPAP all day we could initiate a swallow study He did have evidence of LV dysfunction but that was when he was in intractably rapid atrial fib the control of which was helped by a continuous BiPAP for the 1st 2 and half to 3 days so he was able to compensate with his underlying congestive heart failure Now we continue with the 10 milligram/hour IV Cardizem drip along with the continuous p.r.n. use of Lopressor as well as the digoxin Critical Care Time (minutes): 45 Physical Exam Vital Signs: Vital Signs: Last Vital Signs Temp 99.4 F 04/11/22 06:00 Pulse 90 04/11/22 07:00 Resp 22 H 04/11/22 07:00 BP 144/68 H 04/11/22 07:00 Pulse Ox 94 04/11/22 07:00 O2 Del Method 04/11/22 07:00 O2 Flow Rate 4 04/11/22 07:00 FiO2 30 04/11/22 04:00 Oxygen Flow Rate 9 04/07/22 13:10 BMI result Body Mass Index 46.3 He is awake and alert Adequate bilateral carotid upstrokes no gallops no rubs Chest without adventitious sounds Abdomen soft with no organomegaly Objective Data Labs 04/11/22 05:15 04/11/22 05:15 Labs: Laboratory Results - last 24 hr 04/09/22 04/10/22 04/10/22 04:27 11:35 16:31 WBC RBC Hgb Hct MCV MCH MCHC RDW Plt Count MPV Immature Gran % (Auto) Neut % (Auto) Lymph % (Auto) [place] % (Auto) Eos % (Auto) Baso % (Auto) Lymph # (Auto) [place] # (Auto) Eos # (Auto) Baso # (Auto) Abs Immat Gran (auto) Absolute Neuts (auto) Absolute Nucleated RBC Nucleated RBC % (auto) Smear Path Review SEE NOTE PT INR VBG pH 7.44 H VBG pCO2 35 VBG pO2 45 VBG HCO3 24 VBG O2 Saturation 70.0 VBG Base Excess 0.9 Sodium Potassium Chloride Carbon Dioxide Anion Gap BUN Creatinine Estim Creat Clear Calc Estimated GFR POC Glucose 155 H Random Glucose Calcium Phosphorus Magnesium Total Creatine Kinase Albumin Blood Type Antibody Screen 04/10/22 04/10/22 04/11/22 16:35 17:53 00:21 WBC RBC Hgb Hct MCV MCH MCHC RDW Plt Count MPV Immature Gran % (Auto) Neut % (Auto) Lymph % (Auto) [place] % (Auto) Eos % (Auto) Baso % (Auto) Lymph # (Auto) [place] # (Auto) Eos # (Auto) Baso # (Auto) Abs Immat Gran (auto) Absolute Neuts (auto) Absolute Nucleated RBC Nucleated RBC % (auto) Smear Path Review PT INR VBG pH VBG pCO2 VBG pO2 VBG HCO3 VBG O2 Saturation VBG Base Excess Sodium 149 H Potassium 4.3 Chloride 114 H Carbon Dioxide 22 Anion Gap 17 BUN 95 H Creatinine 2.25 H Estim Creat Clear Calc 41.5 Estimated GFR 29 POC Glucose 171 H 161 H Random Glucose 160 H Calcium 7.7 L Phosphorus Magnesium Total Creatine Kinase Albumin Blood Type Antibody Screen 04/11/22 04/11/22 04/11/22 05:15 05:15 05:15 WBC 9.3 RBC 4.68 Hgb 11.8 L Hct 36.2 L MCV 77.4 L MCH 25.2 L MCHC 32.6 RDW 18.4 H Plt Count 129 L D MPV 12.4 Immature Gran % (Auto) 3.0 H Neut % (Auto) 82.0 H Lymph % (Auto) 7.8 L [place] % (Auto) 6.6 Eos % (Auto) 0.3 Baso % (Auto) 0.3 Lymph # (Auto) 0.7 L [place] # (Auto) 0.6 Eos # (Auto) 0.0 Baso # (Auto) 0.0 Abs Immat Gran (auto) 0.28 H Absolute Neuts (auto) 7.6 Absolute Nucleated RBC 0.020 H Nucleated RBC % (auto) 0.2 Smear Path Review PT 81.5 H INR 6.6 H* VBG pH VBG pCO2 VBG pO2 VBG HCO3 VBG O2 Saturation VBG Base Excess Sodium 155 H Potassium 4.0 Chloride 118 H Carbon Dioxide 23 Anion Gap 18 BUN 87 H Creatinine 2.03 H Estim Creat Clear Calc 46.0 Estimated GFR 33 POC Glucose Random Glucose 175 H Calcium 7.7 L Phosphorus 3.0 Magnesium 3.1 H Total Creatine Kinase 481 H Albumin 2.2 L Blood Type Antibody Screen 04/11/22 04/11/22 04/11/22 05:19 06:12 06:19 WBC RBC Hgb Hct MCV MCH MCHC RDW Plt Count MPV Immature Gran % (Auto) Neut % (Auto) Lymph % (Auto) [place] % (Auto) Eos % (Auto) Baso % (Auto) Lymph # (Auto) [place] # (Auto) Eos # (Auto) Baso # (Auto) Abs Immat Gran (auto) Absolute Neuts (auto) Absolute Nucleated RBC Nucleated RBC % (auto) Smear Path Review PT INR VBG pH 7.43 VBG pCO2 34 VBG pO2 48 VBG HCO3 23 VBG O2 Saturation 76.0 VBG Base Excess -0.5 Sodium Potassium Chloride Carbon Dioxide Anion Gap BUN Creatinine Estim Creat Clear Calc Estimated GFR POC Glucose 173 H Random Glucose Calcium Phosphorus Magnesium Total Creatine Kinase Albumin Blood Type A Positive Antibody Screen NEGATIVE Microbiology Microbiology Results: Microbiology 04/07/22 12:52 Blood - Venous Blood Culture - Final Group G streptococcus 04/07/22 11:40 Blood - Venous Blood Culture - Final Group G streptococcus 04/07/22 Unknown Urine clean catch - Urine goodwin top Urine Culture - Final No growth. Progress Note: A&P Assessment and plan (1) Sepsis associated hypotension: Status: Acute (2) Rhabdomyolysis: Status: Acute (3) Acute renal failure: Status: Acute (4) Elevated liver enzymes: Status: Acute (5) Elevated troponin: Status: Acute (6) Cellulitis: Status: Acute (7) Atrial fibrillation with RVR: Status: Acute (8) HLD (hyperlipidemia): Status: Acute (9) HTN (hypertension): Status: Acute (10) Osteoarthritis of left knee: Status: Acute (11) Osteoarthritis of right knee: Status: Acute (12) COPD (chronic obstructive pulmonary disease): Status: Acute (13) Bilateral leg edema: Status: Acute (14) Moderate major depression: Status: Acute (15) Difficulty sleeping: Status: Acute (16) Adult general medical exam: Status: Acute (17) Diabetic foot: Status: Acute (18) Screening for prostate cancer: Status: Acute (19) Leg ulcer: Status: Acute (20) Chronic heart failure with preserved ejection fraction (HFpEF): Status: Acute (21) Cardiac pacemaker in situ: Status: Acute (22) Diabetes mellitus: Status: Acute (23) Controlled diabetes mellitus with diabetic polyneuropathy: Status: Acute (24) Cellulitis: Status: Acute (25) Chronic wound of extremity: Status: Acute (26) Chronic pain syndrome: Status: Acute (27) Current use of anticoagulant therapy: Status: Acute (28) Primary osteoarthritis of knees, bilateral: Status: Acute (29) Gout: Status: Acute (30) Atrial fibrillation: Status: Acute (31) Obesity: Status: Acute (32) Obstructive sleep apnea: Status: Acute (33) Chronic asthma: Status: Acute (34) Gout: Status: Acute Plan Who impression is that we have evidence of resolving sepsis and its complications clearly less dependent on BiPAP as and renal function as it repairs it certainly is not putting out the appropriate fluid I think it is putting out the toe and excessive for of free water relatively and will have a compensate by replacing free water at this point Quality Stroke Does the patient have a stroke diagnosis?: No VTE Prior VTE?: No VTE Risk Level:: Medical - moderate - high VTE Device Contraindication: N/A - Device Ordered VTE Drug Contraindication: Treatment Not Tolerated
[2022-04-11] MEDS: dilTIAZem HCL 125 MG in 0.9 % Sodium Chloride 100 ML 15 MG IVCONT ×3 (07:43→22:32)
[2022-04-11] MEDS: Digoxin 0.5 MG/2 ML AMPUL 0.125 MG IVPUSH (09:07)
[2022-04-11] MEDS: 0.9 % Sodium Chloride Flush 3 ML SYRINGE IVFLUSH ×2 (09:16→15:01)
--- NOTE | 2022-04-11 10:30 | MHC.CM.PN ---
Pt continues care in ICU: on Cardizem gtt for Afib: rhabdo resolving, STR referrals updated - no plans to transfer out of ICU at this time. CM to follow for finalization of d/c planning needs
[2022-04-11 11:51] LABS: Glucose, Whole Blood 246 mg/dL (60-115)
[2022-04-11 12:55] LABS: Glucose, Whole Blood 238 mg/dL (60-115)
[2022-04-11] MEDS: Insulin Lispro 100 UNIT/ML 3 ML VIAL SUBCUT ×2 (13:03→18:16)
[2022-04-11 14:38] LABS: Anion Gap 16 (12-20); Blood Urea Nitrogen 80 mg/dL (9-16); Calcium 7.6 mg/dL (8.4-10.2); Carbon Dioxide 24 mmol/L (22-29); Chloride 118 mmol/L (96-108); Creatinine Clr Calc Pharmacy 51.1; Estimated Glomerular Filt Rate 35; Glucose Random 305 mg/dL (60-115); Potassium 3.7 mmol/L (3.3-5.1); Sodium 154 mmol/L (135-145)
[2022-04-11] MEDS: Dextrose 5 % 1,000 ML 125 ML IVCONT (15:00)
[2022-04-11] MEDS: KCl 20 mEq in 5 % Dextrose 20 MEQ/1,000 ML IV.SOLN 125 MEQ IVCONT (16:25)
[2022-04-11 17:41] LABS: Glucose, Whole Blood 282 mg/dL (60-115)
[2022-04-11 22:18] LABS: Anion Gap 16 (12-20); Blood Urea Nitrogen 74 mg/dL (9-16); Calcium 7.5 mg/dL (8.4-10.2); Carbon Dioxide 25 mmol/L (22-29); Chloride 117 mmol/L (96-108); Creatinine Clr Calc Pharmacy 55.4; Estimated Glomerular Filt Rate 39; Glucose Random 313 mg/dL (60-115); Magnesium 2.9 mg/dL (1.6-2.6); Phosphorus 2.1 mg/dL (2.7-4.5); Potassium 3.5 mmol/L (3.3-5.1); Sodium 154 mmol/L (135-145)
[2022-04-11] MEDS: Potassium Phosphate/NS 15 MMOL/250 ML PLAST..BAG 62.5 MMOL IV (22:36)
[2022-04-12] VITALS (29 sets, daily range): BP systolic 97–151; BP diastolic 41–92; PULSE 76–122; RESP 15–32; TEMP 36.8–37.9; O2SAT 94–99; BMI 46.3
[2022-04-12] LABS: Glucose, Whole Blood 299 mg/dL (60-115)
[2022-04-12] MEDS: KCl 20 mEq in 5 % Dextrose 20 MEQ/1,000 ML IV.SOLN 150 MEQ IVCONT ×4 (00:15→20:31)
[2022-04-12] MEDS: Insulin Lispro 100 UNIT/ML 3 ML VIAL SUBCUT ×5 (00:17→23:52)
[2022-04-12] MEDS: HYDROmorphone HCl 0.5 MG/0.5 ML SYRINGE IVPUSH ×6 (01:44→21:57)
[2022-04-12 05:30] LABS: MANUAL DIFF FLAG NO
[2022-04-12 05:31] LABS: VBG HCO3 31 mmol/L (22-26); VBG pCO2 46 mmHg; VBG pH 7.44 (7.32-7.43); VBG pO2 66 mmHg
[2022-04-12 05:35] LABS: Venous Blood Gas Refer to POC result
[2022-04-12 05:36] LABS: Basophils Percent Auto 0.4 % (0-2); Eosinophils Absolute Auto 0.1 X10*3/uL (0.0-0.4); Eosinophils Percent Auto 0.9 % (0-4); Hematocrit 35.8 % (42.0-52.0); Hemoglobin 11.4 g/dl (14.0-18.0); Imm Gran Pct Auto 3.7 % (0.0-0.4); Lymphocytes Absolute Auto 0.7 X10*3/uL (1.2-4.9); Lymphocytes Percent Auto 8.5 % (20-40); Mean Corpuscular HGB Conc 31.8 g/dl (31.0-36.0); Mean Corpuscular Hemoglobin 24.9 pg (27.0-33.0); Mean Corpuscular Volume 78.2 fL (80.0-98.0); Mean Platelet Volume 12.7 fL (9.4-12.4); Monocytes Absolute Auto 0.5 X10*3/uL (0.1-1.2); Monocytes Percent Auto 5.7 % (2-11); Neutrophils Absolute Auto 6.6 x10*3/uL (2.0-8.3); Neutrophils Percent Auto 80.8 % (45-73); Platelet Count 155 X10*3/uL (160-400); Red Blood Count 4.58 X10*6/uL (4.60-5.80); Red Cell Distribution Width 18.6 % (11.0-16.0); White Blood Count 8.1 X10*3/uL (4.8-10.8)
[2022-04-12 05:45] LABS: INTERNATIONAL NORM RATIO 8.2 (0.9-1.1)
[2022-04-12 05:46] LABS: Partial Thromboplastin Time 71.2 SEC (26.0-36.4)
[2022-04-12 06:06] LABS: Glucose, Whole Blood 326 mg/dL (60-115)
[2022-04-12 06:07] LABS: Anion Gap 15 (12-20); Blood Urea Nitrogen 72 mg/dL (9-16); Calcium 7.6 mg/dL (8.4-10.2); Carbon Dioxide 24 mmol/L (22-29); Chloride 118 mmol/L (96-108); Creatinine Clr Calc Pharmacy 59.5; Estimated Glomerular Filt Rate 42; Glucose Random 334 mg/dL (60-115); Phosphorus 2.9 mg/dL (2.7-4.5); Sodium 153 mmol/L (135-145)
[2022-04-12] MEDS: Levothyroxine Sodium 100 MCG/5 ML VIAL 37.5 MCG IVPUSH (06:10)
[2022-04-12] MEDS: dilTIAZem HCL 125 MG in 0.9 % Sodium Chloride 100 ML 15 MG IVCONT ×4 (06:10→23:59)
[2022-04-12] MEDS: Digoxin 0.5 MG/2 ML AMPUL 0.125 MG IVPUSH (09:03)
[2022-04-12] MEDS: 0.9 % Sodium Chloride Flush 3 ML SYRINGE IVFLUSH ×3 (09:03→23:17)
[2022-04-12] MEDS: Ampicillin Sodium/Sulbactam Na 3 GM in 0.9 % Sodium Chloride 100 ML IV ×2 (09:03→19:53)
--- NOTE | 2022-04-12 09:59 | MHC.CLN ---
F/U DISCUSSED CASE WITH NSG PT TO START TPN WITH IVF REVIEWED LABS RECOMMEND [id number] AT 45ML/HR TO PROVIDE [id number], 54G PROTEIN DISCUSSED WITH PHARMACY REPLETE LYTES NEEDED FULL UPDATED CLINICAL NUTRITION ASSESSMENT TO FOLLOW
--- NOTE | 2022-04-12 11:38 | MHC.CM.PN ---
Pt continues care in ICU: still on BiPap and not stable to transfer to the medical floor. Pt was independent prior to admission but may require VNA vs STR upon d/c: will need formal assessment of functional abilities when stable. CM to follow
[2022-04-12 12:12] LABS: Glucose, Whole Blood 310 mg/dL (60-115)
--- NOTE | 2022-04-12 12:42 | P.PNCC_ITS ---
Subjective Subjective Date of Service: 04/12/22 Interval History: 66-year-old morbidly obese type 2 diabetic found on the floor after 2 days long in the short looks like he had cellulitis and then group G strep bacteremia and he has been on Unasyn ever since had evidence of rhabdomyolysis and ATN with acute renal failure and now he has had gradual repair currently down finally below to on his creatinine with resolution of oliguria but the still losing a dilute solution obviously inappropriate in terms of the repairing renal status as requiring a Darby large amounts of free water replacement in the form of D5W but because he continues to fail his swallow study he is now on TPN in addition to the free water and is sodium still remains at about 152 he is awake and he somewhat more intelligible but he definitely has significant diastolic dysfunction and chronic atrial fibrillation with very rapid rate making him very dysfunctional and has been BiPAP requiring ever since then in order to compensate since the beginning So on digoxin after full loading and now 0.125 daily as maintenance and on p.r.n. Q 4 hourly Lopressor he still requires at least 10 milligrams/hour of a Cardizem drip his heart rates are running at about 100 right now which is a good level of control pressures of 128 systolic his O2 sat is 96% but work of breathing is much improved and in addition he was coagulopathic definitely had DIC it was a consumptive coagulopathy but he did not have any significant bleeding despite the significantly elevated protime and PTT but right now is platelet count is coming up and is repairing so I expect at least now with restored nutrition that he is going to start producing clotting factors as well but I am not the no treating any of this cosmetically he is not receiving clotting factors he has not had any clinical thrombosing his periphery is still warm well perfused is no acrocyanosis but I am not going to feed into any diffuse microangiopathic picture so hopefully just through nutrition he will produce clotting factors when needed Critical Care Time (minutes): 45 Physical Exam Vital Signs: Vital Signs: Last Vital Signs Temp 98.8 F 04/12/22 12:00 Pulse 85 04/12/22 12:00 Resp 23 H 04/12/22 12:00 BP 131/63 04/12/22 12:00 Pulse Ox 98 04/12/22 12:00 O2 Del Method 04/12/22 12:00 O2 Flow Rate 4 04/12/22 00:00 FiO2 30 04/12/22 12:00 Oxygen Flow Rate 9 04/07/22 13:10 BMI result Body Mass Index 46.3 He is awake and he is oriented and he is tolerating his BiPAP as needed Abdomen soft and there is no organomegaly but unable to to swallow without coughing and choking Is chest no significant adventitious sounds no significant respiratory effort not diaphragmatic and not accessory muscle Bedside echo still demonstrating that his EF is preserved at about 50-55% but is issue still is diastolic dysfunction is filling pressures and again we have the benefit of the central venous pressure to follow Objective Data Labs 04/12/22 05:16 04/12/22 05:16 Labs: Laboratory Results - last 24 hr 04/11/22 04/11/22 04/11/22 12:50 13:35 17:38 WBC RBC Hgb Hct MCV MCH MCHC RDW Plt Count MPV Immature Gran % (Auto) Neut % (Auto) Lymph % (Auto) [place] % (Auto) Eos % (Auto) Baso % (Auto) Lymph # (Auto) [place] # (Auto) Eos # (Auto) Baso # (Auto) Abs Immat Gran (auto) Absolute Neuts (auto) Absolute Nucleated RBC Nucleated RBC % (auto) PT INR APTT VBG pH VBG pCO2 VBG pO2 VBG HCO3 VBG O2 Saturation VBG Base Excess Sodium 154 H Potassium 3.7 Chloride 118 H Carbon Dioxide 24 Anion Gap 16 BUN 80 H Creatinine 1.91 H Estim Creat Clear Calc 51.1 Estimated GFR 35 POC Glucose 238 H 282 H Random Glucose 305 H Calcium 7.6 L Phosphorus Magnesium Total Creatine Kinase Albumin 04/11/22 04/11/22 04/12/22 21:23 23:56 05:16 WBC 8.1 RBC 4.58 L Hgb 11.4 L Hct 35.8 L MCV 78.2 L MCH 24.9 L MCHC 31.8 RDW 18.6 H Plt Count 155 L MPV 12.7 H Immature Gran % (Auto) 3.7 H Neut % (Auto) 80.8 H Lymph % (Auto) 8.5 L [place] % (Auto) 5.7 Eos % (Auto) 0.9 Baso % (Auto) 0.4 Lymph # (Auto) 0.7 L [place] # (Auto) 0.5 Eos # (Auto) 0.1 Baso # (Auto) 0.0 Abs Immat Gran (auto) 0.30 H Absolute Neuts (auto) 6.6 Absolute Nucleated RBC 0.000 Nucleated RBC % (auto) 0.0 PT INR APTT VBG pH VBG pCO2 VBG pO2 VBG HCO3 VBG O2 Saturation VBG Base Excess Sodium 154 H Potassium 3.5 Chloride 117 H Carbon Dioxide 25 Anion Gap 16 BUN 74 H Creatinine 1.76 H Estim Creat Clear Calc 55.4 Estimated GFR 39 POC Glucose 299 H Random Glucose 313 H Calcium 7.5 L Phosphorus 2.1 L Magnesium 2.9 H Total Creatine Kinase Albumin 04/12/22 04/12/22 04/12/22 05:16 05:16 05:25 WBC RBC Hgb Hct MCV MCH MCHC RDW Plt Count MPV Immature Gran % (Auto) Neut % (Auto) Lymph % (Auto) [place] % (Auto) Eos % (Auto) Baso % (Auto) Lymph # (Auto) [place] # (Auto) Eos # (Auto) Baso # (Auto) Abs Immat Gran (auto) Absolute Neuts (auto) Absolute Nucleated RBC Nucleated RBC % (auto) PT 103.0 H INR 8.2 H* APTT 71.2 H* VBG pH 7.44 H VBG pCO2 46 VBG pO2 66 VBG HCO3 31 H VBG O2 Saturation 86.0 VBG Base Excess 7.0 Sodium 153 H Potassium 4.0 Chloride 118 H Carbon Dioxide 24 Anion Gap 15 BUN 72 H Creatinine 1.64 H Estim Creat Clear Calc 59.5 Estimated GFR 42 POC Glucose Random Glucose 334 H Calcium 7.6 L Phosphorus 2.9 Magnesium 3.0 H Total Creatine Kinase 376 H Albumin 04/12/22 04/12/22 04/12/22 06:02 10:25 12:09 WBC RBC Hgb Hct MCV MCH MCHC RDW Plt Count MPV Immature Gran % (Auto) Neut % (Auto) Lymph % (Auto) [place] % (Auto) Eos % (Auto) Baso % (Auto) Lymph # (Auto) [place] # (Auto) Eos # (Auto) Baso # (Auto) Abs Immat Gran (auto) Absolute Neuts (auto) Absolute Nucleated RBC Nucleated RBC % (auto) PT INR APTT VBG pH VBG pCO2 VBG pO2 VBG HCO3 VBG O2 Saturation VBG Base Excess Sodium Potassium Chloride Carbon Dioxide Anion Gap BUN Creatinine Estim Creat Clear Calc Estimated GFR POC Glucose 326 H 310 H Random Glucose Calcium Phosphorus Magnesium Total Creatine Kinase Albumin 2.0 L Microbiology Microbiology Results: Microbiology 04/07/22 12:52 Blood - Venous Blood Culture - Final Group G streptococcus 04/07/22 11:40 Blood - Venous Blood Culture - Final Group G streptococcus 04/07/22 Unknown Urine clean catch - Urine goodwin top Urine Culture - Final No growth. Progress Note: A&P Assessment and plan (1) Sepsis associated hypotension: Status: Acute (2) Rhabdomyolysis: Status: Acute (3) Acute renal failure: Status: Acute (4) Elevated liver enzymes: Status: Acute (5) Elevated troponin: Status: Acute (6) Cellulitis: Status: Acute (7) Atrial fibrillation with RVR: Status: Acute (8) HLD (hyperlipidemia): Status: Acute (9) HTN (hypertension): Status: Acute (10) Osteoarthritis of left knee: Status: Acute (11) Osteoarthritis of right knee: Status: Acute (12) COPD (chronic obstructive pulmonary disease): Status: Acute (13) Bilateral leg edema: Status: Acute (14) Moderate major depression: Status: Acute (15) Difficulty sleeping: Status: Acute (16) Leg ulcer: Status: Acute (17) Screening for prostate cancer: Status: Acute (18) Diabetic foot: Status: Acute (19) Adult general medical exam: Status: Acute (20) Chronic heart failure with preserved ejection fraction (HFpEF): Status: Acute (21) Cardiac pacemaker in situ: Status: Acute (22) Diabetes mellitus: Status: Acute (23) Controlled diabetes mellitus with diabetic polyneuropathy: Status: Acute (24) Cellulitis: Status: Acute (25) Chronic wound of extremity: Status: Acute (26) Chronic pain syndrome: Status: Acute (27) Current use of anticoagulant therapy: Status: Acute (28) Primary osteoarthritis of knees, bilateral: Status: Acute (29) Gout: Status: Acute (30) Atrial fibrillation: Status: Acute (31) Obesity: Status: Acute (32) Obstructive sleep apnea: Status: Acute (33) Chronic asthma: Status: Acute (34) Gout: Status: Acute Plan So the plan is to continue to support as above with the BiPAP being a very necessary to all most importantly by compensating for that work of breathing it is kept his heart rate somewhat controlled and we have been able to avoid having to intubate him throughout this whole ordeal and he clearly is resolving all signs of sepsis but bear in mind the has the markedly elevated sed rate over 100 and with this organism I fear that there may be other metastatic sites of infection wherever he has seen a potentially a prosthetic and might need something like a gallium scan to see if there is any other evidence of infectious activity and I do think Cardiology should see him to have an evaluat ion for a transesophageal echo to be sure were not missing of agitation because at the very least I think he needs 2 weeks of therapy for group G strep bacteremia but he may need to be treated for up to 4-6 weeks Quality Stroke Does the patient have a stroke diagnosis?: No VTE Prior VTE?: No VTE Risk Level:: Medical - moderate - high VTE Device Contraindication: N/A - Device Ordered VTE Drug Contraindication: Treatment Not Tolerated
[2022-04-12 17:47] LABS: Glucose, Whole Blood 284 mg/dL (60-115)
--- NOTE | 2022-04-12 19:02 | PC.NURSE ---
Pt restless and forgetful, redirectable and requires frequent reorientation. Pt was on BiPAP half shift, pt starting to get distressed and changed to 4L NC and satting in the mid 90s. Pt bathed and skin care provided and dressings changed. Pt on tele, continues to be Afib with frequent PVCs, spikes up to 160s but unsustained, MD awre with no new orders at this time, continue to be on Cardizem gtt and PO Digoxin daily. Pt failing bedside swallow screening, MD aware, TPN initiated per MD and dietary's recommendation. Pt is otherwise resting in no acute distress. Repositioned every 2 hrs and as needed. Safety maintained throughout. Will continue to monitor.
[2022-04-12 19:55] LABS: Anion Gap 12 (12-20); Blood Urea Nitrogen 55 mg/dL (9-16); Calcium 7.4 mg/dL (8.4-10.2); Carbon Dioxide 24 mmol/L (22-29); Chloride 120 mmol/L (96-108); Creatinine Clr Calc Pharmacy 68.3; Estimated Glomerular Filt Rate 49; Glucose Random 349 mg/dL (60-115); Magnesium 2.7 mg/dL (1.6-2.6); Phosphorus 2.5 mg/dL (2.7-4.5); Potassium 4.1 mmol/L (3.3-5.1); Sodium 152 mmol/L (135-145)
[2022-04-12] MEDS: Dextrose 5 % 1,000 ML 100 ML IVCONT (20:58)
[2022-04-12] MEDS: Potassium Phosphate/NS 15 MMOL/250 ML PLAST..BAG 62.5 MMOL IV (21:02)
[2022-04-12 23:28] LABS: Glucose, Whole Blood 341 mg/dL (60-115)
[2022-04-13] VITALS (30 sets, daily range): BP systolic 126–156; BP diastolic 37–75; PULSE 85–117; RESP 18–35; TEMP 37.4–38.5; O2SAT 91–99; BMI 47.2
--- NOTE | 2022-04-13 | ECG_ITS ---
Test Reason : chest tightness Blood Pressure : / mmHG Vent. Rate : 110 BPM Atrial Rate : 000 BPM P-R Int : 000 ms QRS Dur : 086 ms QT Int : 342 ms P-R-T Axes : 000 043 265 degrees QTc Int : 462 ms Atrial fibrillation with rapid ventricular response with premature ventricular or aberrantly conducted complexes ST & T wave abnormality, consider inferior ischemia ST & T wave abnormality, consider anterolateral ischemia Abnormal ECG When compared with ECG of 07-APR-2022 11:51, Vent. rate has decreased BY [address] more depressed Anterior leads T wave inversion now evident in Anterolateral leads Referred By: Rafael Lee Electronically Signed By:Andrew Lemus
[2022-04-13 05:00] LABS: VBG Base Excess 1.2 mmol/L; VBG HCO3 23 mmol/L (22-26); VBG pCO2 30 mmHg; VBG pH 7.49 (7.32-7.43); VBG pO2 59 mmHg
[2022-04-13 05:05] LABS: MANUAL DIFF FLAG NO
[2022-04-13 05:10] LABS: Basophils Percent Auto 0.4 % (0-2); Eosinophils Absolute Auto 0.1 X10*3/uL (0.0-0.4); Eosinophils Percent Auto 1.3 % (0-4); Hematocrit 35.5 % (42.0-52.0); Hemoglobin 11.2 g/dl (14.0-18.0); Imm Gran Abs Auto 0.29 X10*3/uL (0.00-0.03); Imm Gran Pct Auto 3.5 % (0.0-0.4); Lymphocytes Absolute Auto 0.6 X10*3/uL (1.2-4.9); Lymphocytes Percent Auto 7.6 % (20-40); Mean Corpuscular HGB Conc 31.5 g/dl (31.0-36.0); Mean Corpuscular Volume 79.2 fL (80.0-98.0); Mean Platelet Volume 12.1 fL (9.4-12.4); Monocytes Absolute Auto 0.4 X10*3/uL (0.1-1.2); Monocytes Percent Auto 4.3 % (2-11); NRBC Pct Auto 0.5 /100WBC (0.0-0.2); Neutrophils Percent Auto 82.9 % (45-73); Platelet Count 196 X10*3/uL (160-400); Red Blood Count 4.48 X10*6/uL (4.60-5.80); Red Cell Distribution Width 18.6 % (11.0-16.0); White Blood Count 8.4 X10*3/uL (4.8-10.8)
[2022-04-13 05:11] LABS: Venous Blood Gas Refer to POC result
[2022-04-13 05:16] LABS: INTERNATIONAL NORM RATIO 3.9 (0.9-1.1)
[2022-04-13 05:28] LABS: Partial Thromboplastin Time 71.7 SEC (26.0-36.4)
[2022-04-13 05:41] LABS: Albumin Level 1.8 g/dL (3.5-5.0); Anion Gap 16 (12-20); Blood Urea Nitrogen 53 mg/dL (9-16); Calcium 7.6 mg/dL (8.4-10.2); Carbon Dioxide 23 mmol/L (22-29); Chloride 121 mmol/L (96-108); Estimated Glomerular Filt Rate 52; Glucose Random 373 mg/dL (60-115); Magnesium 2.6 mg/dL (1.6-2.6); Phosphorus 3.2 mg/dL (2.7-4.5); Potassium 4.3 mmol/L (3.3-5.1); Sodium 156 mmol/L (135-145)
[2022-04-13] MEDS: Insulin Lispro 100 UNIT/ML 3 ML VIAL SUBCUT ×3 (05:47→18:39)
[2022-04-13] MEDS: Levothyroxine Sodium 100 MCG/5 ML VIAL 37.5 MCG IVPUSH (05:47)
[2022-04-13] MEDS: Dextrose 5 % 1,000 ML 100 ML IVCONT (06:20)
[2022-04-13] MEDS: Digoxin 0.5 MG/2 ML AMPUL 0.125 MG IVPUSH (07:38)
[2022-04-13] MEDS: dilTIAZem HCL 125 MG in 0.9 % Sodium Chloride 100 ML 15 MG IVCONT ×3 (07:39→22:39)
[2022-04-13] MEDS: Ampicillin Sodium/Sulbactam Na 3 GM in 0.9 % Sodium Chloride 100 ML IV (07:41)
[2022-04-13] MEDS: 0.9 % Sodium Chloride Flush 3 ML SYRINGE IVFLUSH ×2 (07:41→16:17)
[2022-04-13] MEDS: Albumin Human 25 % 100 ML IV ×3 (08:57→19:31)
[2022-04-13] MEDS: Furosemide 40 MG/4 ML VIAL IVPUSH ×2 (09:00→16:17)
[2022-04-13] MEDS: HYDROmorphone HCl 0.5 MG/0.5 ML SYRINGE IVPUSH ×4 (09:03→22:34)
[2022-04-13] MEDS: cefTRIAXone sodium 1 GM in 0.9 % Sodium Chloride 50 ML IV (09:11)
--- NOTE | 2022-04-13 11:47 | MHC.CLN ---
F/U DISCUSSED AT ROUNDS WITH PT RECEIVED [id number] AT 45ML/HR TO PROVIDE 767KCALS, 54G PROTEIN TPN TO BE D/C PER PT CURRENTLY NPO WITH MULTIPLE FAILED SWALLOW EVALS FOLLOWING WITH TEAM
--- NOTE | 2022-04-13 12:55 | P.PNCC_ITS ---
Subjective Subjective Date of Service: 04/13/22 Interval History: 66-year-old gentleman with underlying history of AFib status post permanent pacemaker, diastolic heart failure, diabetes mellitus, obesity, EKATERINA, admitted on 04/07/2022 with history of a mechanical fall with prolonged immobility. On ER evaluation rhabdomyolysis, acute kidney injury, cellulitis of lower extremities with streptococcal bacteremia, and acute hypoxic respiratory failure requiring BiPAP support. Patient was treated with IV fluids, antibiotics, and rate control medications with significant improvement. However he remains somewhat encephalopathic and has been failing his swallow evaluations. No events overnight. Titrated off BiPAP. Critical Care Time (minutes): 45 Physical Exam Vital Signs: Vital Signs: Last Vital Signs Temp 99.3 F 04/13/22 12:00 Pulse 102 H 04/13/22 12:00 Resp 20 04/13/22 12:00 BP 149/75 H 04/13/22 12:00 Pulse Ox 95 04/13/22 12:00 O2 Del Method 04/13/22 12:00 O2 Flow Rate 3 04/13/22 12:00 FiO2 30 04/13/22 08:00 Oxygen Flow Rate 9 04/07/22 13:10 BMI result Body Mass Index 47.2 Const: General: no acute distress, alert and confusion Nutritional Appearance: obese and Edematous Orientation/consciousness: confusion Eyes: Sclerae: sclerae normal EOM: EOMs intact bilaterally Neck: Neck: Yes no lymphadenopathy, Yes trachea midline and Yes supple Resp: Effort & Inspection: no respiratory distress Auscultation: crackles (Diffuse bilateral) Cardio: Rate: tachycardic Rhythm: abnormal rhythm irregularly irregular Heart sounds: no gallops, no murmurs and no rubs GI: Palpation (GI): Soft to palpation and Other GI palpation findings present ( Nontender) Auscultation: normal bowel sounds Neuro: General: confusion Extrem: General: No clubbing, No cyanosis and Yes edema (2+ bilateral) Objective Data Labs 04/13/22 04:47 04/13/22 04:47 Labs: Laboratory Results - last 24 hr 04/12/22 04/12/22 04/12/22 17:42 19:16 23:24 WBC RBC Hgb Hct MCV MCH MCHC RDW Plt Count MPV Immature Gran % (Auto) Neut % (Auto) Lymph % (Auto) [place] % (Auto) Eos % (Auto) Baso % (Auto) Lymph # (Auto) [place] # (Auto) Eos # (Auto) Baso # (Auto) Abs Immat Gran (auto) Absolute Neuts (auto) Absolute Nucleated RBC Nucleated RBC % (auto) PT INR APTT VBG pH VBG pCO2 VBG pO2 VBG HCO3 VBG O2 Saturation VBG Base Excess Sodium 152 H Potassium 4.1 Chloride 120 H Carbon Dioxide 24 Anion Gap 12 BUN 55 H Creatinine 1.43 H Estim Creat Clear Calc 68.3 Estimated GFR 49 POC Glucose 284 H 341 H Random Glucose 349 H Calcium 7.4 L Phosphorus 2.5 L Magnesium 2.7 H Total Creatine Kinase Albumin 04/13/22 04/13/22 04/13/22 04:47 04:47 04:47 WBC 8.4 RBC 4.48 L Hgb 11.2 L Hct 35.5 L MCV 79.2 L MCH 25.0 L MCHC 31.5 RDW 18.6 H Plt Count 196 D MPV 12.1 Immature Gran % (Auto) 3.5 H Neut % (Auto) 82.9 H Lymph % (Auto) 7.6 L [place] % (Auto) 4.3 Eos % (Auto) 1.3 Baso % (Auto) 0.4 Lymph # (Auto) 0.6 L [place] # (Auto) 0.4 Eos # (Auto) 0.1 Baso # (Auto) 0.0 Abs Immat Gran (auto) 0.29 H Absolute Neuts (auto) 7.0 Absolute Nucleated RBC 0.040 H Nucleated RBC % (auto) 0.5 H PT 48.0 H INR 3.9 H D APTT 71.7 H* VBG pH VBG pCO2 VBG pO2 VBG HCO3 VBG O2 Saturation VBG Base Excess Sodium 156 H Potassium 4.3 Chloride 121 H Carbon Dioxide 23 Anion Gap 16 BUN 53 H Creatinine 1.37 Estim Creat Clear Calc 72.0 Estimated GFR 52 POC Glucose Random Glucose 373 H* Calcium 7.6 L Phosphorus 3.2 Magnesium 2.6 Total Creatine Kinase 223 H Albumin 1.8 L 04/13/22 04:54 WBC RBC Hgb Hct MCV MCH MCHC RDW Plt Count MPV Immature Gran % (Auto) Neut % (Auto) Lymph % (Auto) [place] % (Auto) Eos % (Auto) Baso % (Auto) Lymph # (Auto) [place] # (Auto) Eos # (Auto) Baso # (Auto) Abs Immat Gran (auto) Absolute Neuts (auto) Absolute Nucleated RBC Nucleated RBC % (auto) PT INR APTT VBG pH 7.49 H VBG pCO2 30 VBG pO2 59 VBG HCO3 23 VBG O2 Saturation 88.0 VBG Base Excess 1.2 Sodium Potassium Chloride Carbon Dioxide Anion Gap BUN Creatinine Estim Creat Clear Calc Estimated GFR POC Glucose Random Glucose Calcium Phosphorus Magnesium Total Creatine Kinase Albumin Microbiology Microbiology Results: Microbiology 04/07/22 12:52 Blood - Venous Blood Culture - Final Group G streptococcus 04/07/22 11:40 Blood - Venous Blood Culture - Final Group G streptococcus 04/07/22 Unknown Urine clean catch - Urine goodwin top Urine Culture - Final No growth. Progress Note: A&P Assessment and plan (1) Rhabdomyolysis: Status: Acute (2) Acute renal failure: Status: Acute (3) Atrial fibrillation with RVR: Status: Acute (4) Chronic heart failure with preserved ejection fraction (HFpEF): Status: Acute (5) Cellulitis: Status: Acute (6) Diabetes mellitus: Status: Acute (7) Obstructive sleep apnea: Status: Acute Plan Assessment: 66-year-old gentleman admitted after mechanical fall with prolonged inability resulting rhabdomyolysis with acute kidney injury, also underlying cellulitis with streptococcal bacteremia diastolic heart failure exacerbation, a nd AFib with RVR. Plan: Neuro: No acute issues. Cardiac: Acute on chronic diastolic congestive heart failure and AFib with RVR. Continue rate control with digoxin and calcium channel blockers. Started on diuresis. Pulmonary: Acute hypoxic respiratory failure secondary to exacerbation of under lying congestive heart failure, improving with diuresis. Continue to titrate off supplemental oxygen as tolerated. Underlying EKATERINA on nocturnal CPAP 8 cm. Renal: Acute kidney injury secondary to rhabdomyolysis, improving. Non oliguric. Continue to monitor renal indices and urine output. Endo: No acute issues. Underlying diabetes mellitus. GI: No acute issues. ID: Group G streptococcal bacteremia, continue on ceftriaxone for total 14 days of therapy. Heme/Onc: No acute issues. Psych: No acute issues. Miscellaneous: No acute issues. Prophylaxis: Heparin Diet: Pending swallow evaluation Critical care time spent: 45 minutes Quality Stroke Does the patient have a stroke diagnosis?: No VTE Prior VTE?: No VTE Risk Level:: Medical - moderate - high VTE Device Contraindication: N/A - Device Ordered VTE Drug Contraindication: Treatment Not Tolerated
[2022-04-13 13:04] LABS: Glucose, Whole Blood 296 mg/dL (60-115)
--- NOTE | 2022-04-13 13:06 | MHC.CM.PN ---
Pt making clinical progress and may be able to transfer out of ICU later today. Na trending up - today at 156. Meds to be adjusted. Pt referred to [facility] - updates remitted for facility acceptance. Pt will need PT and/or OT eval once medically able to participate in evals. CM to follow.
[2022-04-13 17:53] LABS: Glucose, Whole Blood 280 mg/dL (60-115)
[2022-04-13 18:51] LABS: Anion Gap 17 (12-20); Blood Urea Nitrogen 49 mg/dL (9-16); Calcium 8.4 mg/dL (8.4-10.2); Carbon Dioxide 26 mmol/L (22-29); Chloride 122 mmol/L (96-108); Creatinine Clr Calc Pharmacy 67.1; Estimated Glomerular Filt Rate 48; Glucose Random 312 mg/dL (60-115); Potassium 3.8 mmol/L (3.3-5.1); Sodium 161 mmol/L (135-145); Troponin-I High Sensitivity 118.6 ng/L (<3.5-35.0)
[2022-04-13] MEDS: Dextrose 5 % 1,000 ML 50 ML IVCONT (20:39)
[2022-04-13] MEDS: Phytonadione (Vit K1) 10 MG in 0.9 % Sodium Chloride 50 ML 51 MG IV (20:54)
[2022-04-13 21:43] LABS: Troponin-I High Sensitivity 124.2 ng/L (<3.5-35.0)
[2022-04-13 23:33] LABS: Glucose, Whole Blood 230 mg/dL (60-115)
[2022-04-14] VITALS (30 sets, daily range): BP systolic 132–167; BP diastolic 49–86; PULSE 76–115; RESP 12–45; TEMP 36.8–39; O2SAT 89–96; BMI 44.6
[2022-04-14] MEDS: 0.9 % Sodium Chloride Flush 3 ML SYRINGE IVFLUSH ×3 (00:08→15:53)
[2022-04-14] MEDS: Insulin Lispro 100 UNIT/ML 3 ML VIAL SUBCUT ×4 (00:12→18:22)
[2022-04-14] MEDS: Albumin Human 25 % 100 ML IV ×4 (02:02→20:41)
[2022-04-14] MEDS: dilTIAZem HCL 125 MG in 0.9 % Sodium Chloride 100 ML 15 MG IVCONT (04:34)
[2022-04-14] MEDS: HYDROmorphone HCl 0.5 MG/0.5 ML SYRINGE IVPUSH ×4 (04:35→22:34)
[2022-04-14 05:09] LABS: VBG Base Excess 5.2 mmol/L; VBG HCO3 28 mmol/L (22-26); VBG pCO2 34 mmHg; VBG pH 7.51 (7.32-7.43); VBG pO2 46 mmHg
[2022-04-14 05:10] LABS: Venous Blood Gas Refer to POC result
[2022-04-14] MEDS: Levothyroxine Sodium 100 MCG/5 ML VIAL 37.5 MCG IVPUSH (05:43)
[2022-04-14 05:45] LABS: Glucose, Whole Blood 241 mg/dL (60-115)
[2022-04-14 05:58] LABS: Alanine Aminotransferase 42 U/L (0-40); Albumin Level 2.9 g/dL (3.5-5.0); Alkaline Phosphatase 71 U/L (39-117); Anion Gap 17 (12-20); Aspartate Amino Transferase 57 U/L (5-37); Bilirubin Total 9.9 mg/dL (0.0-1.0); Blood Urea Nitrogen 47 mg/dL (9-16); Calcium 8.5 mg/dL (8.4-10.2); Carbon Dioxide 28 mmol/L (22-29); Chloride 122 mmol/L (96-108); Creatinine Clr Calc Pharmacy 66.2; Estimated Glomerular Filt Rate 47; Glucose Random 242 mg/dL (60-115); Phosphorus 3.5 mg/dL (2.7-4.5); Potassium 3.5 mmol/L (3.3-5.1); Sodium 163 mmol/L (135-145); Total Protein 5.9 g/dL (6.5-8.0)
[2022-04-14] MEDS: cefTRIAXone sodium 1 GM in 0.9 % Sodium Chloride 50 ML IV (08:25)
[2022-04-14] MEDS: Digoxin 0.5 MG/2 ML AMPUL 0.125 MG IVPUSH (08:26)
[2022-04-14] MEDS: Potassium Chloride/H20 40 MEQ/100 ML PIGGYBACK 50 MEQ IV (08:27)
--- NOTE | 2022-04-14 10:27 | MHC.CLN ---
F/U PT WITH NGT PT TO START JEVITY 1.0 AT MAX GOAL RATE 60ML/HR WITH 300ML FREE WATER FLUSHES Q 4HRS TO PROVIDE 1526KCALS, 64G PROTEIN, 3002ML TOTAL WATER FROM FORMULA AND FLUSHES RECOMMEND ADDING 30ML PROSOURCE BID TO PROVIDE AN ADDITIONAL 120KCALS, 30G PROTEIN MONITOR TOLERANCE, RESIDUALS AND LYTES
--- NOTE | 2022-04-14 10:28 | MHC.CM.PN ---
Patient remains in ICU. KV NGT tube was inserted for tube feeds. Patient is alert and oriented x2. Not oriented to date/time. HCP is on file. Anticipate physical therapy eval will be needed when patient is medically stable for home safety. Continue to monitor for d/c needs.
--- NOTE | 2022-04-14 10:38 | PM.CCPN ---
Subjective Subjective Date of Service: 04/14/22 Interval History: 66-year-old gentleman with underlying history of AFib status post permanent pacemaker, diastolic heart failure, diabetes mellitus, obesity, EKATERINA, admitted on 04/07/2022 with history of a mechanical fall with prolonged immobility. On ER evaluation rhabdomyolysis, acute kidney injury, cellulitis of lower extremities with streptococcal bacteremia, and acute hypoxic respiratory failure requiring BiPAP support. Patient was treated with IV fluids, antibiotics, and rate control medications with significant improvement. However he remains somewhat encephalopathic and has been failing his swallow evaluations. Remains febrile. Blood cultures reordered. NG tube placed. Critical Care Time (minutes): 0 Physical Exam Vital Signs: Vital Signs: Last Vital Signs Temp 100.6 F H 04/14/22 10:00 Pulse 99 04/14/22 10:00 Resp 21 H 04/14/22 10:00 BP 156/60 H 04/14/22 10:00 Pulse Ox 95 04/14/22 10:00 O2 Del Method 04/14/22 10:00 O2 Flow Rate 2 04/14/22 10:00 FiO2 30 04/14/22 07:00 Oxygen Flow Rate 9 04/07/22 13:10 BMI result Body Mass Index 44.6 Const: General: no acute distress, alert, awake and other ( Oriented to self and place, but not time) Nutritional Appearance: obese and Edematous Eyes: Sclerae: sclerae normal EOM: EOMs intact bilaterally Neck: Neck: Yes no lymphadenopathy, Yes trachea midline and Yes supple Resp: Effort & Inspection: normal respiratory effort and no respiratory distress Auscultation: crackles ( mild bilateral) Cardio: Rate: regular rate Rhythm: abnormal rhythm irregularly irregular Heart sounds: no gallops, no murmurs and no rubs GI: Palpation (GI): Soft to palpation and Other GI palpation findings present ( Nontender) Auscultation: normal bowel sounds Extrem: General: No clubbing, No cyanosis and Yes edema ( 2+ bilateral) Objective Data Labs 04/13/22 04:47 04/14/22 05:02 Labs: Laboratory Results - last 24 hr 04/13/22 04/13/22 04/13/22 12:59 17:49 18:11 VBG pH VBG pCO2 VBG pO2 VBG HCO3 VBG O2 Saturation VBG Base Excess Sodium 161 H* Potassium 3.8 Chloride 122 H Carbon Dioxide 26 Anion Gap 17 BUN 49 H Creatinine 1.47 H Estim Creat Clear Calc 67.1 Estimated GFR 48 POC Glucose 296 H 280 H Random Glucose 312 H Calcium 8.4 D Phosphorus Magnesium Total Bilirubin AST ALT Alkaline Phosphatase Troponin I High Sens Total Protein Albumin 04/13/22 04/13/22 04/13/22 18:11 21:01 23:29 VBG pH VBG pCO2 VBG pO2 VBG HCO3 VBG O2 Saturation VBG Base Excess Sodium Potassium Chloride Carbon Dioxide Anion Gap BUN Creatinine Estim Creat Clear Calc Estimated GFR POC Glucose 230 H Random Glucose Calcium Phosphorus Magnesium Total Bilirubin AST ALT Alkaline Phosphatase Troponin I High Sens 118.6 H* D 124.2 H* Total Protein Albumin 04/14/22 04/14/22 04/14/22 05:02 05:02 05:40 VBG pH 7.51 H VBG pCO2 34 VBG pO2 46 VBG HCO3 28 H VBG O2 Saturation 74.0 VBG Base Excess 5.2 Sodium 163 H* Potassium 3.5 Chloride 122 H Carbon Dioxide 28 Anion Gap 17 BUN 47 H Creatinine 1.49 H Estim Creat Clear Calc 66.2 Estimated GFR 47 POC Glucose 241 H Random Glucose 242 H Calcium 8.5 Phosphorus 3.5 Magnesium 2.0 Total Bilirubin 9.9 H AST 57 H ALT 42 H Alkaline Phosphatase 71 Troponin I High Sens Total Protein 5.9 L Albumin 2.9 L Microbiology Microbiology Results: Microbiology 04/07/22 12:52 Blood - Venous Blood Culture - Final Group G streptococcus 04/07/22 11:40 Blood - Venous Blood Culture - Final Group G streptococcus 04/07/22 Unknown Urine clean catch - Urine goodwin top Urine Culture - Final No growth. Progress Note: A&P Assessment and plan (1) Acute renal failure: Status: Acute (2) Rhabdomyolysis: Status: Acute (3) Atrial fibrillation with RVR: Status: Acute (4) Chronic heart failure with preserved ejection fraction (HFpEF): Status: Acute (5) Diabetes mellitus: Status: Acute (6) Obstructive sleep apnea: Status: Acute (7) Metabolic encephalopathy: Status: Acute (8) Hypernatremia: Status: Acute (9) Streptococcal bacteremia: Status: Acute Plan Assessment: 66-year-old gentleman admitted after mechanical fall with prolonged inability resulting rhabdomyolysis with acute kidney injury, also underlying cellulitis with streptococcal bacteremia diastolic heart failure exacerbation, and AFib with RVR. Plan: Neuro: subacute metabolic encephalopathy, improving slowly. Failed swallow evaluation, NG tube placed. Cardiac: Acute on chronic diastolic congestive heart failure and AFib with RVR. Continue rate control with digoxin and calcium channel blockers. Started on diuresis. Pulmonary: Acute hypoxic respiratory failure secondary to exacerbation of underlying congestive heart failure, improving with diuresis. Continue to titrate off supplemental oxygen as tolerated. Underlying EKATERINA on nocturnal CPAP 8 cm. Renal: Acute kidney injury secondary to rhabdomyolysis, improving. Non oliguric. Continue to monitor renal indices and urine output. Hypernatremia secondary to intravascular volume depletion and fluid shift into the tissue. Now on free water boluses and colloidal support. Endo: No acute issues. Underlying diabetes mellitus. GI: No acute issues. ID: Group G streptococcal bacteremia, continue on ceftriaxone for total 14 days of therapy. Remains febrile. Blood cultures re-ordered. Heme/Onc: No acute issues. Psych: No acute issues. Miscellaneous: No acute issues. Prophylaxis: Heparin Diet: tube feeds Quality Stroke Does the patient have a stroke diagnosis?: No VTE Prior VTE?: No VTE Risk Level:: Medical - moderate - high VTE Device Contraindication: N/A - Device Ordered VTE Drug Contraindication: Treatment Not Tolerated
[2022-04-14] MEDS: Insulin Glargine,Hum.rec.anlog 100 UNIT/ML 10 ML VIAL 10 UNIT SUBCUT (11:13)
[2022-04-14] MEDS: Heparin Sodium,Porcine 5,000 UNIT/ML VIAL 5000 UNIT SUBCUT ×2 (11:13→18:23)
[2022-04-14] MEDS: Furosemide 40 MG/4 ML VIAL IVPUSH (11:13)
[2022-04-14 11:51] LABS: Glucose, Whole Blood 214 mg/dL (60-115)
[2022-04-14] MEDS: Metoprolol Tartrate 50 MG TABLET PO ×3 (13:38→20:41)
[2022-04-14] MEDS: dilTIAZem HCL 60 MG TABLET PO ×3 (13:44→20:41)
[2022-04-14 17:30] LABS: Anion Gap 16 (12-20); Blood Urea Nitrogen 48 mg/dL (9-16); Carbon Dioxide 29 mmol/L (22-29); Chloride 123 mmol/L (96-108); Creatinine Clr Calc Pharmacy 63.2; Estimated Glomerular Filt Rate 46; Glucose Random 259 mg/dL (60-115); Potassium 3.7 mmol/L (3.3-5.1); Sodium 164 mmol/L (135-145)
[2022-04-14 18:16] LABS: Glucose, Whole Blood 249 mg/dL (60-115)
[2022-04-14 20:05] LABS: Alanine Aminotransferase 40 U/L (0-40); Albumin Level 3.3 g/dL (3.5-5.0); Alkaline Phosphatase 70 U/L (39-117); Aspartate Amino Transferase 66 U/L (5-37); Bilirubin Direct 7.4 mg/dL (0.0-0.5); Bilirubin Total 10.7 mg/dL (0.0-1.0); Total Protein 6.4 g/dL (6.5-8.0)
[2022-04-14 23:33] LABS: Glucose, Whole Blood 278 mg/dL (60-115)
[2022-04-15] VITALS (25 sets, daily range): BP systolic 127–167; BP diastolic 60–79; PULSE 72–114; RESP 12–32; TEMP 35.1–38.4; O2SAT 89–97; BMI 42.9
[2022-04-15] MEDS: Insulin Lispro 100 UNIT/ML 3 ML VIAL SUBCUT ×5 (00:16→23:37)
[2022-04-15] MEDS: 0.9 % Sodium Chloride Flush 3 ML SYRINGE IVFLUSH ×4 (00:16→20:17)
[2022-04-15] MEDS: Heparin Sodium,Porcine 5,000 UNIT/ML VIAL 5000 UNIT SUBCUT ×3 (03:13→18:29)
[2022-04-15] MEDS: Albumin Human 25 % 100 ML IV ×4 (03:13→20:17)
[2022-04-15 04:40] LABS: VBG Base Excess 4.5 mmol/L; VBG HCO3 25 mmol/L (22-26); VBG pCO2 27 mmHg; VBG pH 7.58 (7.32-7.43); VBG pO2 72 mmHg
[2022-04-15 05:17] LABS: INTERNATIONAL NORM RATIO 1.3 (0.9-1.1)
[2022-04-15 05:27] LABS: Basophils Percent Auto 0.2 % (0-2); Eosinophils Absolute Auto 0.1 X10*3/uL (0.0-0.4); Eosinophils Percent Auto 0.4 % (0-4); Hematocrit 34.5 % (42.0-52.0); Hemoglobin 10.9 g/dl (14.0-18.0); Imm Gran Pct Auto 0.8 % (0.0-0.4); Lymphocytes Absolute Auto 0.8 X10*3/uL (1.2-4.9); Lymphocytes Percent Auto 6.1 % (20-40); MANUAL DIFF FLAG SCAN; Mean Corpuscular HGB Conc 31.6 g/dl (31.0-36.0); Mean Corpuscular Hemoglobin 25.8 pg (27.0-33.0); Mean Corpuscular Volume 81.8 fL (80.0-98.0); Mean Platelet Volume 12.6 fL (9.4-12.4); Monocytes Absolute Auto 0.3 X10*3/uL (0.1-1.2); NRBC Pct Auto 0.3 /100WBC (0.0-0.2); Neutrophils Absolute Auto 12.1 x10*3/uL (2.0-8.3); Neutrophils Percent Auto 90.5 % (45-73); Platelet Count 178 X10*3/uL (160-400); Red Blood Count 4.22 X10*6/uL (4.60-5.80); SCAN SMEAR FLAG 1; White Blood Count 13.3 X10*3/uL (4.8-10.8)
[2022-04-15 05:32] LABS: Alanine Aminotransferase 38 U/L (0-40); Albumin Level 3.4 g/dL (3.5-5.0); Alkaline Phosphatase 74 U/L (39-117); Anion Gap 20 (12-20); Aspartate Amino Transferase 67 U/L (5-37); Bilirubin Total 9.6 mg/dL (0.0-1.0); Blood Urea Nitrogen 52 mg/dL (9-16); Calcium 9.1 mg/dL (8.4-10.2); Carbon Dioxide 23 mmol/L (22-29); Chloride 125 mmol/L (96-108); Creatinine Clr Calc Pharmacy 67.2; Estimated Glomerular Filt Rate 50; Glucose Random 297 mg/dL (60-115); Magnesium 2.1 mg/dL (1.6-2.6); Potassium 4.1 mmol/L (3.3-5.1); Sodium 164 mmol/L (135-145); Total Protein 6.7 g/dL (6.5-8.0)
[2022-04-15 05:33] LABS: Venous Blood Gas Refer to POC result
[2022-04-15 05:55] LABS: Glucose, Whole Blood 265 mg/dL (60-115)
[2022-04-15] MEDS: Levothyroxine Sodium 100 MCG/5 ML VIAL 37.5 MCG IVPUSH (05:59)
[2022-04-15] MEDS: HYDROmorphone HCl 0.5 MG/0.5 ML SYRINGE IVPUSH (06:00)
[2022-04-15 06:06] LABS: SLIDE REVIEW VERIFIED
--- NOTE | 2022-04-15 07:00 | PC.NURSE ---
Assumed care of patient at 1845. On assessment patient noted to have new crepitus to right lateral and posterior flank. SENIOR UNDERWRITER notified and at bedside to evaluate, no new orders at this time. All dressings changed, new photographs and measurements taken - see paper chart.
[2022-04-15] MEDS: Digoxin 0.5 MG/2 ML AMPUL 0.125 MG IVPUSH (07:45)
[2022-04-15] MEDS: dilTIAZem HCL 60 MG TABLET PO ×4 (07:46→20:17)
[2022-04-15] MEDS: Metoprolol Tartrate 50 MG TABLET PO ×4 (07:46→20:17)
[2022-04-15] MEDS: Furosemide 40 MG/4 ML VIAL IVPUSH (07:46)
[2022-04-15] MEDS: cefTRIAXone sodium 1 GM in 0.9 % Sodium Chloride 50 ML IV (08:10)
[2022-04-15] MEDS: Insulin Glargine,Hum.rec.anlog 100 UNIT/ML 10 ML VIAL 10 UNIT SUBCUT (08:10)
[2022-04-15] MEDS: Dextrose 5 % 1,000 ML 125 ML IVCONT ×2 (08:48→16:35)
--- NOTE | 2022-04-15 10:03 | MHC.CLN ---
Addendum entered by Faith Mayo, [place] 04/15/22 10:56: DISCUSSED WITH CHANO AND PT ON BIPAP FROM APPROX. 10PM-6AM PER RECOMMEND DAYTIME FEEDING JEVITY 1.0 AT MAX GOAL RATE 95ML/HR X16HRS CONTINUOUS (ON 6AM, OFF 10PM) WITH 30ML PROSOURCE BID AND 300ML FREE WATER FLUSHES X6 TO PROVIDE 1731KCALS (25KCALS/KG), 97G PROTEIN (1.4G/KG), 3069ML TOTAL WATER FROM FORMULA AND FLUSHES (44ML/KG BASED ON IBW) MONITOR TOLERANCE, RESIDUALS AND LYTES Original Note: F/U PT WITH NGT TF RAN X8HRS ON THE OVERNIGHT R/T BIPAP PT RECEIVED JEVITY 1.0 AT MAX GOAL RATE 60ML/HR WITH 30ML PROSOURCE BID AND 300ML FREE WATER FLUSHES Q 4HRS PROVIDED 629KCALS, 51G PROTEIN, 700ML TOTAL WATER FROM FORMULA AND FLUSHES PT ALSO RECEIVED D5W IVF PROVIDED AN ADDITIONAL 170KCALS RECOMMEND SWITCHING TO NOCTURNAL FEED IF BIPAP TO INTERFERE WITH TF RECOMMEND JEVITY 1.0 AT MAX GOAL RATE 200ML/HR X 8 HRS CONTINUOUS (8PM-4AM) WITH 30ML PROSOURCE BID AND 300ML FREE WATER FLUSHES Q 4 HRS TO PROVIDE 1816KCALS TOTAL (26KCLAS/KG), 101G PROTEIN (1.4G/KG), 3216ML TOTAL WATER FROM FORMULA AND FLUSHES (46ML/KG) MONITOR TOLERANCE, RESIDUALS AND LYTES
--- NOTE | 2022-04-15 10:06 | MHC.CM.PN ---
Patient remains in ICU. From home with meals on wheels. Patient will need physical therapy eval for home safety when medically stable. Continue to monitor for d/c needs.
[2022-04-15 11:38] LABS: Glucose, Whole Blood 293 mg/dL (60-115)
[2022-04-15] MEDS: fentaNYL citrate/PF 100 MCG/2 ML VIAL 50 MCG IVPUSH (11:38)
--- NOTE | 2022-04-15 12:45 | PM.CCPN ---
Subjective Subjective Date of Service: 04/15/22 Interval History: 66-year-old gentleman with underlying history of AFib status post permanent pacemaker, diastolic heart failure, diabetes mellitus, obesity, EKATERINA, admitted on 04/07/2022 with history of a mechanical fall with prolonged immobility. On ER evaluation rhabdomyolysis, acute kidney injury, cellulitis of lower extremities with streptococcal bacteremia, and acute hypoxic respiratory failure requiring BiPAP support. Patient was treated with IV fluids, antibiotics, and rate control medications with significant improvement. However, he remains somewhat encephalopathic and has been failing his swallow evaluations so NG tube was placed and he was started on tube feeds and free water flushes. Patient also noted to have hyperbilirubinemia that appears to be cholestatic and is slowly improving. No events overnight. Critical Care Time (minutes): 45 Physical Exam Vital Signs: Vital Signs: Last Vital Signs Temp 100.0 F 04/15/22 12:00 Pulse 86 04/15/22 12:00 Resp 26 H 04/15/22 12:00 BP 127/69 04/15/22 12:00 Pulse Ox 94 04/15/22 12:00 O2 Del Method 04/15/22 12:00 O2 Flow Rate 2.5 04/15/22 12:00 FiO2 30 04/15/22 09:00 Oxygen Flow Rate 9 04/07/22 13:10 BMI result Body Mass Index 42.9 Const: General: no acute distress, alert, awake and confusion Orientation/consciousness: confusion Eyes: Sclerae: sclerae normal EOM: EOMs intact bilaterally Neck: Neck: Yes no lymphadenopathy, Yes trachea midline and Yes supple Resp: Effort & Inspection: normal respiratory effort and no respiratory distress Auscultation: crackles (Bibasilar) Cardio: Rate: regular rate Rhythm: abnormal rhythm irregularly irregular Heart sounds: no gallops, no murmurs and no rubs GI: Palpation (GI): Soft to palpation and Other GI palpation findings present ( Nontender) Auscultation: normal bowel sounds Neuro: General: confusion Extrem: General: No clubbing, No cyanosis and Yes edema (2+ bilateral) Objective Data Labs 04/15/22 05:19 04/15/22 04:34 Labs: Laboratory Results - last 24 hr 04/14/22 04/14/22 04/14/22 16:01 18:10 23:30 WBC RBC Hgb Hct MCV MCH MCHC RDW Plt Count MPV Immature Gran % (Auto) Neut % (Auto) Lymph % (Auto) Keith % (Auto) Eos % (Auto) Baso % (Auto) Lymph # (Auto) Keith # (Auto) Eos # (Auto) Baso # (Auto) Abs Immat Gran (auto) Absolute Neuts (auto) Absolute Nucleated RBC Nucleated RBC % (auto) Smear Tech's Comments PT INR VBG pH VBG pCO2 VBG pO2 VBG HCO3 VBG O2 Saturation VBG Base Excess Sodium 164 H* Potassium 3.7 Chloride 123 H Carbon Dioxide 29 Anion Gap 16 BUN 48 H Creatinine 1.51 H Estim Creat Clear Calc 63.2 Estimated GFR 46 POC Glucose 249 H 278 H Random Glucose 259 H Calcium 9.0 Phosphorus Magnesium Total Bilirubin 10.7 H Direct Bilirubin 7.4 H AST 66 H ALT 40 Alkaline Phosphatase 70 Total Protein 6.4 L Albumin 3.3 L 04/15/22 04/15/22 04/15/22 04:33 04:34 04:34 WBC RBC Hgb Hct MCV MCH MCHC RDW Plt Count MPV Immature Gran % (Auto) Neut % (Auto) Lymph % (Auto) Keith % (Auto) Eos % (Auto) Baso % (Auto) Lymph # (Auto) Keith # (Auto) Eos # (Auto) Baso # (Auto) Abs Immat Gran (auto) Absolute Neuts (auto) Absolute Nucleated RBC Nucleated RBC % (auto) Smear Tech's Comments PT 15.0 H INR 1.3 H D VBG pH 7.58 H VBG pCO2 27 VBG pO2 72 VBG HCO3 25 VBG O2 Saturation 94.0 VBG Base Excess 4.5 Sodium 164 H* Potassium 4.1 Chloride 125 H Carbon Dioxide 23 Anion Gap 20 BUN 52 H Creatinine 1.42 H Estim Creat Clear Calc 67.2 Estimated GFR 50 POC Glucose Random Glucose 297 H Calcium 9.1 Phosphorus 3.0 Magnesium 2.1 Total Bilirubin 9.6 H Direct Bilirubin 6.0 H AST 67 H ALT 38 Alkaline Phosphatase 74 Total Protein 6.7 Albumin 3.4 L 04/15/22 04/15/22 04/15/22 05:19 05:45 11:35 WBC 13.3 H RBC 4.22 L Hgb 10.9 L Hct 34.5 L MCV 81.8 MCH 25.8 L MCHC 31.6 RDW 19.0 H Plt Count 178 MPV 12.6 H Immature Gran % (Auto) 0.8 H Neut % (Auto) 90.5 H Lymph % (Auto) 6.1 L Keith % (Auto) 2.0 Eos % (Auto) 0.4 Baso % (Auto) 0.2 Lymph # (Auto) 0.8 L Keith # (Auto) 0.3 Eos # (Auto) 0.1 Baso # (Auto) 0.0 Abs Immat Gran (auto) 0.10 H Absolute Neuts (auto) 12.1 H Absolute Nucleated RBC 0.040 H Nucleated RBC % (auto) 0.3 H Smear Tech's Comments VERIFIED PT INR VBG pH VBG pCO2 VBG pO2 VBG HCO3 VBG O2 Saturation VBG Base Excess Sodium Potassium Chloride Carbon Dioxide Anion Gap BUN Creatinine Estim Creat Clear Calc Estimated GFR POC Glucose 265 H 293 H Random Glucose Calcium Phosphorus Magnesium Total Bilirubin Direct Bilirubin AST ALT Alkaline Phosphatase Total Protein Albumin Microbiology Microbiology Results: Microbiology 04/14/22 09:17 Blood - Venous Blood Culture - Preliminary No growth after 24 hours. 04/14/22 09:17 Blood - Venous Blood Culture - Preliminary No growth after 24 hours. 04/07/22 12:52 Blood - Venous Blood Culture - Final Group G streptococcus 04/07/22 11:40 Blood - Venous Blood Culture - Final Group G streptococcus 04/07/22 Unknown Urine clean catch - Urine goodwin top Urine Culture - Final No growth. Progress Note: A&P Assessment and plan (1) Streptococcal bacteremia: Status: Acute (2) Hypernatremia: Status: Acute (3) Metabolic encephalopathy: Status: Acute (4) Acute renal failure: Status: Acute (5) Elevated liver enzymes: Status: Acute (6) Atrial fibrillation with RVR: Status: Acute (7) Controlled diabetes mellitus with diabetic polyneuropathy: Status: Acute (8) Chronic heart failure with preserved ejection fraction (HFpEF): Status: Acute Plan Assessment: 66-year-old gentleman admitted after mechanical fall with prolonged inability resulting rhabdomyolysis with acute kidney injury, also underlying cellulitis with streptococcal bacteremia diastolic heart failure exacerbation, and AFib with RVR. Plan: Neuro: subacute metabolic encephalopathy, improving slowly. Failed swallow evaluation, NG tube placed. Cardiac: Acute on chronic diastolic congestive heart failure and AFib with RVR. Continue rate control with digoxin, Cardizem, and metoprolol. Continue with diuresis. Pulmonary: Acute hypoxic respiratory failure secondary to exacerbation of underlying congestive heart failure, improving with diuresis. Continue to titrate off supplemental oxygen as tolerated. Underlying EKATERINA on nocturnal CPAP 8 cm. Renal: Acute kidney injury secondary to rhabdomyolysis, improving. Non oliguric. Continue to monitor renal indices and urine output. Hypernatremia secondary to intravascular volume depletion and fluid shift into the tissue. Now on D5, free water boluses, and colloidal support. Endo: No acute issues. Underlying diabetes mellitus. GI: No acute issues. ID: Group G streptococcal bacteremia, continue on ceftriaxone for total 14 days of therapy. Remains febrile. Repeat blood cultures with no growth to date. Heme/Onc: No acute issues. Psych: No acute issues. Miscellaneous: No acute issues. Prophylaxis: Heparin Diet: tube feeds Quality Stroke Does the patient have a stroke diagnosis?: No VTE Prior VTE?: No VTE Risk Level:: Medical - moderate - high VTE Device Contraindication: N/A - Device Ordered VTE Drug Contraindication: Treatment Not Tolerated
[2022-04-15 13:23] LABS: Anion Gap 18 (12-20); Blood Urea Nitrogen 53 mg/dL (9-16); Calcium 9.3 mg/dL (8.4-10.2); Carbon Dioxide 27 mmol/L (22-29); Chloride 123 mmol/L (96-108); Creatinine Clr Calc Pharmacy 58.4; Estimated Glomerular Filt Rate 43; Glucose Random 363 mg/dL (60-115); Potassium 3.1 mmol/L (3.3-5.1); Sodium 165 mmol/L (135-145)
[2022-04-15] MEDS: Potassium Chloride Packet 20 MEQ PACKET 60 MEQ PO (14:24)
[2022-04-15 18:27] LABS: Glucose, Whole Blood 363 mg/dL (60-115)
[2022-04-15 19:31] LABS: Anion Gap 22 (12-20); Blood Urea Nitrogen 58 mg/dL (9-16); Carbon Dioxide 22 mmol/L (22-29); Chloride 124 mmol/L (96-108); Estimated Glomerular Filt Rate 40; Glucose Random 411 mg/dL (60-115); Potassium 4.2 mmol/L (3.3-5.1); Sodium 164 mmol/L (135-145)
[2022-04-15] MEDS: Insulin Lispro 100 UNIT/ML 3 ML VIAL 8 UNIT SUBCUT (20:43)
[2022-04-15 23:37] LABS: Glucose, Whole Blood 299 mg/dL (60-115)
[2022-04-16] VITALS (32 sets, daily range): BP systolic 94–137; BP diastolic 50–73; PULSE 69–117; RESP 12–42; TEMP 32–39.1; O2SAT 87–99; BMI 43.5
[2022-04-16] MEDS: fentaNYL citrate/PF 100 MCG/2 ML VIAL 50 MCG IVPUSH ×5 (01:25→18:57)
[2022-04-16] MEDS: Heparin Sodium,Porcine 5,000 UNIT/ML VIAL 5000 UNIT SUBCUT ×3 (03:59→18:32)
[2022-04-16 05:17] LABS: VBG Base Excess 4.7 mmol/L; VBG HCO3 28 mmol/L (22-26); VBG pCO2 36 mmHg; VBG pH 7.49 (7.32-7.43); VBG pO2 63 mmHg
[2022-04-16 05:21] LABS: Venous Blood Gas Refer to POC result
[2022-04-16 05:40] LABS: Basophils Percent Auto 0.2 % (0-2); Eosinophils Percent Auto 0.3 % (0-4); Hematocrit 34.2 % (42.0-52.0); Hemoglobin 10.4 g/dl (14.0-18.0); Imm Gran Abs Auto 0.08 X10*3/uL (0.00-0.03); Imm Gran Pct Auto 0.6 % (0.0-0.4); Lymphocytes Absolute Auto 0.8 X10*3/uL (1.2-4.9); Lymphocytes Percent Auto 6.5 % (20-40); MANUAL DIFF FLAG SCAN; Mean Corpuscular HGB Conc 30.4 g/dl (31.0-36.0); Mean Corpuscular Hemoglobin 24.7 pg (27.0-33.0); Mean Corpuscular Volume 81.2 fL (80.0-98.0); Mean Platelet Volume 12.8 fL (9.4-12.4); Monocytes Absolute Auto 0.3 X10*3/uL (0.1-1.2); Monocytes Percent Auto 1.9 % (2-11); NRBC Pct Auto 0.2 /100WBC (0.0-0.2); Neutrophils Absolute Auto 11.7 x10*3/uL (2.0-8.3); Neutrophils Percent Auto 90.5 % (45-73); Platelet Count 183 X10*3/uL (160-400); Red Blood Count 4.21 X10*6/uL (4.60-5.80); Red Cell Distribution Width 19.3 % (11.0-16.0); SCAN SMEAR FLAG 1; White Blood Count 12.9 X10*3/uL (4.8-10.8)
[2022-04-16 06:05] LABS: SLIDE REVIEW VERIFIED
[2022-04-16 06:08] LABS: Albumin Level 3.3 g/dL (3.5-5.0); Anion Gap 19 (12-20); Blood Urea Nitrogen 68 mg/dL (9-16); Calcium 9.1 mg/dL (8.4-10.2); Carbon Dioxide 26 mmol/L (22-29); Chloride 125 mmol/L (96-108); Estimated Glomerular Filt Rate 43; Glucose Random 252 mg/dL (60-115); Magnesium 2.2 mg/dL (1.6-2.6); Phosphorus 4.5 mg/dL (2.7-4.5); Potassium 3.5 mmol/L (3.3-5.1); Sodium 166 mmol/L (135-145)
[2022-04-16 06:22] LABS: Glucose, Whole Blood 223 mg/dL (60-115)
[2022-04-16] MEDS: Levothyroxine Sodium 100 MCG/5 ML VIAL 37.5 MCG IVPUSH (06:32)
[2022-04-16] MEDS: Insulin Lispro 100 UNIT/ML 3 ML VIAL SUBCUT ×3 (06:37→19:17)
[2022-04-16] MEDS: Insulin Glargine,Hum.rec.anlog 100 UNIT/ML 10 ML VIAL 10 UNIT SUBCUT (08:01)
[2022-04-16] MEDS: Potassium Chloride Packet 20 MEQ PACKET 40 MEQ PO (08:02)
[2022-04-16] MEDS: dilTIAZem HCL 60 MG TABLET PO ×3 (08:02→22:24)
[2022-04-16] MEDS: Metoprolol Tartrate 50 MG TABLET PO ×3 (08:02→22:24)
[2022-04-16] MEDS: 0.9 % Sodium Chloride Flush 3 ML SYRINGE IVFLUSH ×3 (08:03→23:40)
[2022-04-16] MEDS: Digoxin 0.5 MG/2 ML AMPUL 0.125 MG IVPUSH (08:03)
[2022-04-16] MEDS: cefTRIAXone sodium 1 GM in 0.9 % Sodium Chloride 50 ML IV (08:25)
[2022-04-16 09:03] LABS: Alanine Aminotransferase 40 U/L (0-40); Alkaline Phosphatase 72 U/L (39-117); Aspartate Amino Transferase 70 U/L (5-37); Bilirubin Direct 5.4 mg/dL (0.0-0.5); Bilirubin Total 7.6 mg/dL (0.0-1.0); Total Protein 6.2 g/dL (6.5-8.0)
--- NOTE | 2022-04-16 11:01 | MHC.CM.PN ---
Pt continues in ICU: encephalopathic and unable to make decisions: MD to update and invoke pt's HCP. Original d/c plan was for a return to home however, this will not be possible d/t his overall decline and need for constant medical care. CM to wait for HCP invocation to assist with d/c planning needs.
[2022-04-16 12:04] LABS: Glucose, Whole Blood 260 mg/dL (60-115)
[2022-04-16 13:37] LABS: ABG Base Excess 4.9 mmol/L; ABG HCO3 32 mmol/L (22-26); ABG pCO2 63 mmHg (32-45); ABG pH 7.31 (7.35-7.45); ABG pO2 77 mmHg (83-108)
--- NOTE | 2022-04-16 13:50 | PM.CCPN ---
Subjective Subjective Date of Service: 04/16/22 Interval History: 66-year-old gentleman with underlying history of AFib status post permanent pacemaker, diastolic heart failure, diabetes mellitus, obesity, EKATERINA, admitted on 04/07/2022 with history of a mechanical fall with prolonged immobility. On ER evaluation rhabdomyolysis, acute kidney injury, cellulitis of lower extremities with streptococcal bacteremia, and acute hypoxic respiratory failure requiring BiPAP support. Patient was treated with IV fluids, antibiotics, and rate control medications with significant improvement. However, he remains somewhat encephalopathic and has been failing his swallow evaluations so NG tube was placed and he was started on tube feeds and free water flushes. Patient also noted to have hyperbilirubinemia that appears to be cholestatic and is slowly improving. Overnight with worsening lethargy and increase in CO2 retention now requiring BiPAP support. Critical Care Time (minutes): 45 Physical Exam Vital Signs: Vital Signs: Last Vital Signs Temp 101.7 F H 04/16/22 13:00 Pulse 69 04/16/22 13:00 Resp 42 H 04/16/22 13:48 BP 101/65 04/16/22 13:00 Pulse Ox 87 L 04/16/22 13:00 O2 Del Method 04/16/22 13:00 O2 Flow Rate 5 04/16/22 13:00 FiO2 30 04/16/22 04:00 Oxygen Flow Rate 9 04/07/22 13:10 BMI result Body Mass Index 43.5 Const: General: no acute distress, confusion and other (Jaundiced) Nutritional Appearance: Edematous Orientation/consciousness: confusion Eyes: Sclerae: sclerae normal EOM: EOMs intact bilaterally Neck: Neck: Yes no lymphadenopathy, Yes trachea midline and Yes supple Resp: Effort & Inspection: normal respiratory effort and no respiratory distress Auscultation: clear to auscultation bilaterally Cardio: Rate: regular rate Rhythm: abnormal rhythm irregularly irregular Heart sounds: no gallops, no murmurs and no rubs GI: Palpation (GI): Soft to palpation and Other GI palpation findings present ( Nontender) Auscultation: normal bowel sounds Neuro: General: confusion Extrem: General: No clubbing, No cyanosis and Yes edema (On close bilateral) Objective Data Labs 04/16/22 05:13 04/16/22 05:13 Labs: Laboratory Results - last 24 hr 04/15/22 04/15/2204/15/23 18:07 18:23 23:33 WBC RBC Hgb Hct MCV MCH MCHC RDW Plt Count MPV Immature Gran % (Auto) Neut % (Auto) Lymph % (Auto) Kaufman % (Auto) Eos % (Auto) Baso % (Auto) Lymph # (Auto) Kaufman # (Auto) Eos # (Auto) Baso # (Auto) Abs Immat Gran (auto) Absolute Neuts (auto) Absolute Nucleated RBC Nucleated RBC % (auto) Smear Tech's Comments O2 Saturation ABG pH at Pt Temp ABG pCO2 at Pt Temp ABG pO2 at Pt Temp ABG HCO3 ABG Base Excess (Actual) VBG pH VBG pCO2 VBG pO2 VBG HCO3 VBG O2 Saturation VBG Base Excess Sodium 164 H* Potassium 4.2 D Chloride 124 H Carbon Dioxide 22 Anion Gap 22 H BUN 58 H Creatinine 1.73 H Estim Creat Clear Calc 54.0 Estimated GFR 40 POC Glucose 363 H* 299 H Random Glucose 411 H* Calcium 9.0 Phosphorus Magnesium Total Bilirubin Direct Bilirubin AST ALT Alkaline Phosphatase Total Protein Albumin 04/16/22 04/16/22 04/16/22 05:10 05:13 05:13 WBC 12.9 H RBC 4.21 L Hgb 10.4 L Hct 34.2 L MCV 81.2 MCH 24.7 L MCHC 30.4 L RDW 19.3 H Plt Count 183 MPV 12.8 H Immature Gran % (Auto) 0.6 H Neut % (Auto) 90.5 H Lymph % (Auto) 6.5 L Kaufman % (Auto) 1.9 L Eos % (Auto) 0.3 Baso % (Auto) 0.2 Lymph # (Auto) 0.8 L Kaufman # (Auto) 0.3 Eos # (Auto) 0.0 Baso # (Auto) 0.0 Abs Immat Gran (auto) 0.08 H Absolute Neuts (auto) 11.7 H Absolute Nucleated RBC 0.020 H Nucleated RBC % (auto) 0.2 Smear Tech's Comments VERIFIED O2 Saturation ABG pH at Pt Temp ABG pCO2 at Pt Temp ABG pO2 at Pt Temp ABG HCO3 ABG Base Excess (Actual) VBG pH 7.49 H VBG pCO2 36 VBG pO2 63 VBG HCO3 28 H VBG O2 Saturation 90.0 VBG Base Excess 4.7 Sodium 166 H* Potassium 3.5 Chloride 125 H Carbon Dioxide 26 Anion Gap 19 BUN 68 H Creatinine 1.61 H Estim Creat Clear Calc 58.0 Estimated GFR 43 POC Glucose Random Glucose 252 H Calcium 9.1 Phosphorus 4.5 Magnesium 2.2 Total Bilirubin 7.6 H Direct Bilirubin 5.4 H AST 70 H ALT 40 Alkaline Phosphatase 72 Total Protein 6.2 L Albumin 3.3 L 04/16/22 04/16/22 04/16/22 06:16 12:01 13:30 WBC RBC Hgb Hct MCV MCH MCHC RDW Plt Count MPV Immature Gran % (Auto) Neut % (Auto) Lymph % (Auto) Kaufman % (Auto) Eos % (Auto) Baso % (Auto) Lymph # (Auto) [place]man # (Auto) Eos # (Auto) Baso # (Auto) Abs Immat Gran (auto) Absolute Neuts (auto) Absolute Nucleated RBC Nucleated RBC % (auto) Smear Tech's Comments O2 Saturation 92.0 ABG pH at Pt Temp 7.31 L ABG pCO2 at Pt Temp 63 H* ABG pO2 at Pt Temp 77 L ABG HCO3 32 H ABG Base Excess (Actual) 4.9 VBG pH VBG pCO2 VBG pO2 VBG HCO3 VBG O2 Saturation VBG Base Excess Sodium Potassium Chloride Carbon Dioxide Anion Gap BUN Creatinine Estim Creat Clear Calc Estimated GFR POC Glucose 223 H 260 H Random Glucose Calcium Phosphorus Magnesium Total Bilirubin Direct Bilirubin AST ALT Alkaline Phosphatase Total Protein Albumin Microbiology Microbiology Results: Microbiology 04/14/22 09:17 Blood - Venous Blood Culture - Preliminary No growth after 48 hours. 04/14/22 09:17 Blood - Venous Blood Culture - Preliminary No growth after 48 hours. 04/07/22 12:52 Blood - Venous Blood Culture - Final Group G streptococcus 04/07/22 11:40 Blood - Venous Blood Culture - Final Group G streptococcus 04/07/22 Unknown Urine clean catch - Urine goodwin top Urine Culture - Final No growth. Progress Note: A&P Assessment and plan (1) Cholestasis: Status: Acute (2) Streptococcal bacteremia: Status: Acute (3) Metabolic encephalopathy: Status: Acute (4) Hypernatremia: Status: Acute (5) Acute renal failure: Status: Acute (6) Atrial fibrillation with RVR: Status: Acute (7) COPD (chronic obstructive pulmonary disease): Status: Acute (8) Controlled diabetes mellitus with diabetic polyneuropathy: Status: Acute (9) Obstructive sleep apnea: Status: Acute (10) Chronic heart failure with preserved ejection fraction (HFpEF): Status: Acute Plan Assessment: 66-year-old gentleman admitted after mechanical fall with prolonged inability resulting rhabdomyolysis with acute kidney injury, also underlying cellulitis with streptococcal bacteremia diastolic heart failure exacerbation, and AFib with RVR. Plan: Neuro: subacute metabolic encephalopathy, waxing and waning. Failed swallow evaluation, NG tube placed. Cardiac: Acute on chronic diastolic congestive heart failure and AFib with RVR. Continue rate control with digoxin, Cardizem, and metoprolol. Diuresis held secondary to hypernatremia. Pulmonary: Acute hypoxic respiratory failure secondary to exacerbation of underlying congestive heart failure, improving with diuresis. Continue to titrate off supplemental oxygen as tolerated. Underlying EKATERINA on nocturnal CPAP 8 cm. Renal: Acute kidney injury secondary to rhabdomyolysis, improving. Non oliguric. Continue to monitor renal indices and urine output. Hypernatremia secondary to intravascular volume depletion and fluid shift into the tissue, continue with free water. Endo: No acute issues. Underlying diabetes mellitus. GI: Hyperbilirubinemia, appears to be cholestatic, improving. Continue to monitor. ID: Group G streptococcal bacteremia, continue on ceftriaxone for total 14 days of therapy. Remains febrile. Repeat blood cultures with no growth to date. Heme/Onc: No acute issues. Psych: No acute issues. Miscellaneous: No acute issues. Prophylaxis: Heparin Diet: tube feeds Critical care time: 45 minutes Quality Stroke Does the patient have a stroke diagnosis?: No VTE Prior VTE?: No VTE Risk Level:: Medical - moderate - high VTE Device Contraindication: N/A - Device Ordered VTE Drug Contraindication: Treatment Not Tolerated
[2022-04-16 18:38] LABS: Glucose, Whole Blood 211 mg/dL (60-115)
[2022-04-16 18:49] LABS: Anion Gap 18 (12-20); Blood Urea Nitrogen 97 mg/dL (9-16); Calcium 9.1 mg/dL (8.4-10.2); Carbon Dioxide 25 mmol/L (22-29); Chloride 130 mmol/L (96-108); Creatinine Clr Calc Pharmacy 41.9; Estimated Glomerular Filt Rate 29; Glucose Random 234 mg/dL (60-115); Potassium 4.7 mmol/L (3.3-5.1); Sodium 168 mmol/L (135-145)
[2022-04-16] MEDS: propofoL 200 MG/20 ML VIAL 40 MG IVPUSH (20:51)
[2022-04-16] MEDS: Rocuronium Bromide 50 MG/5 ML VIAL IVPUSH (20:51)
[2022-04-16] MEDS: propofoL 1,000 MG/100 ML VIAL 15.6 MG IVCONT (20:55)
--- NOTE | 2022-04-16 21:54 | W.PM.CCHP ---
Procedures Date of Service Date of Service: 04/16/22 Intubation Intubation Comments: Procedure: ? The patient developed progressive respiratory fatigue, somnolence, and hypoxemia, despite BiPAP. ? He was preoxygenated with BiPAP 100%. ? RSI was carried out with the meds below.? The glottis was easily visualized with 34. GlideScope, and the trachea was intubated with a 8.0 ETT via? indirect video visualization, atraumatic.? BSBE, +CO2, SpO2 maintained.? The tube was secured at 25 cm at the upper lip. The patient tolerated the procedure well with no complications.? Placement confirmed with chest x-ray. Consent for Procedure: Emergent-no informed consent obtained Time out performed: Yes Sedative: propofol Mg given: 40 Paralytic: rocuronium Mg given: 50 Laryngoscope: fiber optic video scope ET tube size: 8 ET tube uncuffed: No Tube secured depth (cm): 25 Tube secured location: lips Tube placement confirmation: visualized tube passing through cords, equal breath sounds bilaterally, no breath sounds over epigastrium and confirmation by capnometry Patient tolerated procedure: well and no complications Intubation complications: none
--- NOTE | 2022-04-16 22:00 | P.PCNCC_ITS ---
Procedures Date of Service Date of Service: 04/16/22 Central Line Placement Right IJ: Central Line Comments: The right neck was widely prepped and draped in full sterile fashion.? Under US? guidance, the right IJ vein was cannulated on the 1st pass of the 18 g thin wall needle, with return of dark, nonpulsatile blood. ? The wire was threaded without incident.? The 16 cm x 7 Mongolian triple-lumen CVC was advanced into the vein up to the hub via the Seldinger technique without incident.? There was good blood return x3.? The catheter was sutured x2 and a Biopatch and dry sterile dressing were applied. Consent for Procedure: Emergent-no informed consent obtained Time out performed: Yes Sterile Technique Used: Yes Patient placed on monitor/pulse ox: Yes prep: mask, gown and gloves Central line prep: Chlorhexidine scrub and sterile drapes applied Ultrasound used for placement: Yes Central line lumen inserted: triple Post procedure: sutured in place, good blood return, all ports aspirated, flushed, capped and sterile dressing applied Post procedure x-ray: tip of catheter in good position and no pneumothorax seen Patient tolerated procedure: well and no complications Complications: none
--- NOTE | 2022-04-16 23:02 | PC.NURSE ---
Emergent intubation preformed by [employer] bedside. Levophed gtt started and titrated to maintain appropriate map per [employer] guidance, see EMAR. 40 mg propofol IVP per [employer], see EMAR. 50 mg Rocuronium given IVP per [employer], see EMAR. propofol gtt started and titrated to maintain appropriate sedation, see EMAR. ETT placed successfully and confirmed placement with x-ray. TLC placed in RIJ by [employer]. Confirmed placement with x-ray, line patent with blood return. Complete dressing change completed to all dressings. Patient bathed, repositioned q2hr, updated on health status. Family informed on health status. HCP came in informed by MD on health status. [facility] form filled out by HCP and , RN witnessed, patient FULL CODE.
[2022-04-16 23:50] LABS: VBG Base Excess 6.9 mmol/L; VBG HCO3 32 mmol/L (22-26); VBG pCO2 47 mmHg; VBG pH 7.43 (7.32-7.43); VBG pO2 39 mmHg
[2022-04-16 23:53] LABS: Glucose, Whole Blood 151 mg/dL (60-115)
[2022-04-17] VITALS (41 sets, daily range): BP systolic 89–146; BP diastolic 45–85; PULSE 71–107; RESP 13–32; TEMP 32–39.5; O2SAT 91–96; BMI 43.2
[2022-04-17] MEDS: propofoL 1,000 MG/100 ML VIAL 23.4 MG IVCONT ×5 (00:37→16:40)
[2022-04-17] MEDS: Norepinephrine Bitartrate/D5W 8 MG/250 ML PLAST..BAG 24.38 MG IVCONT ×2 (00:38→06:41)
[2022-04-17] MEDS: Acetaminophen Oral Liquid 650 MG/20.3 ML SOLUTION NG-TUBE (00:58)
[2022-04-17] MEDS: Heparin Sodium,Porcine 5,000 UNIT/ML VIAL 5000 UNIT SUBCUT ×3 (04:26→18:35)
[2022-04-17 04:54] LABS: Venous Blood Gas Refer to POC result
[2022-04-17 05:26] LABS: VBG Base Excess 4.6 mmol/L; VBG HCO3 28 mmol/L (22-26); VBG pCO2 40 mmHg; VBG pH 7.45 (7.32-7.43); VBG pO2 42 mmHg
[2022-04-17 05:31] LABS: MANUAL DIFF FLAG NO
[2022-04-17 05:34] LABS: Basophils Absolute Auto 0.1 X10*3/uL (0.0-0.2); Basophils Percent Auto 0.4 % (0-2); Eosinophils Absolute Auto 0.1 X10*3/uL (0.0-0.4); Eosinophils Percent Auto 0.3 % (0-4); Hematocrit 34.9 % (42.0-52.0); Hemoglobin 10.8 g/dl (14.0-18.0); Imm Gran Abs Auto 0.08 X10*3/uL (0.00-0.03); Imm Gran Pct Auto 0.5 % (0.0-0.4); Lymphocytes Absolute Auto 1.6 X10*3/uL (1.2-4.9); Lymphocytes Percent Auto 10.9 % (20-40); Mean Corpuscular HGB Conc 30.9 g/dl (31.0-36.0); Mean Corpuscular Hemoglobin 25.1 pg (27.0-33.0); Mean Platelet Volume 12.4 fL (9.4-12.4); Monocytes Absolute Auto 0.3 X10*3/uL (0.1-1.2); NRBC Pct Auto 0.3 /100WBC (0.0-0.2); Neutrophils Absolute Auto 12.6 x10*3/uL (2.0-8.3); Neutrophils Percent Auto 85.9 % (45-73); Platelet Count 237 X10*3/uL (160-400); Red Blood Count 4.31 X10*6/uL (4.60-5.80); Red Cell Distribution Width 19.7 % (11.0-16.0); White Blood Count 14.6 X10*3/uL (4.8-10.8)
[2022-04-17 05:46] LABS: Glucose, Whole Blood 224 mg/dL (60-115)
[2022-04-17] MEDS: Insulin Lispro 100 UNIT/ML 3 ML VIAL SUBCUT ×3 (06:01→18:35)
[2022-04-17] MEDS: 0.9 % Sodium Chloride Flush 3 ML SYRINGE IVFLUSH ×3 (06:02→23:52)
[2022-04-17] MEDS: Levothyroxine Sodium 100 MCG/5 ML VIAL 37.5 MCG IVPUSH (06:02)
[2022-04-17 06:05] LABS: Albumin Level 2.9 g/dL (3.5-5.0); Anion Gap 22 (12-20); Blood Urea Nitrogen 106 mg/dL (9-16); Calcium 8.6 mg/dL (8.4-10.2); Carbon Dioxide 24 mmol/L (22-29); Chloride 124 mmol/L (96-108); Estimated Glomerular Filt Rate 26; Glucose Random 273 mg/dL (60-115); Magnesium 2.5 mg/dL (1.6-2.6); Phosphorus 4.4 mg/dL (2.7-4.5); Sodium 166 mmol/L (135-145)
[2022-04-17 06:46] LABS: ABG Refer to POC result
[2022-04-17] MEDS: Chlorhexidine Gluc Oral Rinse 15 ML MOUTHWASH BUCCAL ×3 (08:43→20:48)
[2022-04-17] MEDS: cefTRIAXone sodium 1 GM in 0.9 % Sodium Chloride 50 ML IV (08:51)
[2022-04-17] MEDS: Famotidine/PF 20 MG/2 ML VIAL IVPUSH (08:51)
[2022-04-17] MEDS: Insulin Glargine,Hum.rec.anlog 100 UNIT/ML 10 ML VIAL 10 UNIT SUBCUT (08:51)
[2022-04-17] MEDS: dilTIAZem HCL 60 MG TABLET PO ×4 (08:52→20:48)
[2022-04-17] MEDS: Metoprolol Tartrate 50 MG TABLET PO ×4 (08:52→20:48)
[2022-04-17] MEDS: Digoxin 0.5 MG/2 ML AMPUL 0.125 MG IVPUSH (08:52)
--- NOTE | 2022-04-17 10:23 | MHC.CLN ---
PT IS NOW INTUBATED AND SEDATED PT PREVIOUSLY WITH NGT WHILE ON BIPAP RECOMMEND SWITCHING TO PROMOTE AT MAX GOAL RATE 45ML/HR WITH 30ML PROSOURCE BID AND 300ML FREE WATER FLUSHES Q 4 HRS TO PROVIDE 1200KCALS (1818KCALS WITH SEDATION; 26KCALS/KG BASED ON IBW), 97.5G TOTAL PROTEIN (1.4G/KG), 2706ML TOTAL FLUIDS FROM FORMULA AND FLUSHES (38.7ML/KG) MONITOR TOLERANCE, RESIDUALS AND LYTES SEE FULL CLINICAL NUTRITION ASSESSMENT
--- NOTE | 2022-04-17 11:28 | P.PNCC_ITS ---
Subjective Subjective Date of Service: 04/17/22 Interval History: 66-year-old gentleman with underlying history of AFib status post permanent pacemaker, diastolic heart failure, diabetes mellitus, obesity, EKATERINA, admitted on 04/07/2022 with history of a mechanical fall with prolonged immobility. On ER evaluation rhabdomyolysis, acute kidney injury, cellulitis of lower extremities with streptococcal bacteremia, and acute hypoxic respiratory failure requiring BiPAP support. Patient was treated with IV fluids, antibiotics, and rate control medications with significant improvement. However, he remains somewhat encephalopathic and has been failing his swallow evaluations so NG tube was placed and he was started on tube feeds and free water flushes. Patient also noted to have hyperbilirubinemia that appears to be cholestatic and is slowly improving. Overnight with progressive hypoxia and respiratory distress secondary to aspiration of oral secretions requiring intubation ventilatory support. Critical Care Time (minutes): 60 Physical Exam Vital Signs: Vital Signs: Last Vital Signs Temp 101.7 F H 04/17/22 11:00 Pulse 87 04/17/22 11:00 Resp 25 H 04/17/22 11:00 BP 103/53 L 04/17/22 11:00 Pulse Ox 94 04/17/22 11:00 O2 Del Method 04/17/22 11:00 O2 Flow Rate 5 04/16/22 13:00 FiO2 40 04/17/22 11:20 Oxygen Flow Rate 9 04/07/22 13:10 BMI result Body Mass Index 43.2 Const: General: no acute distress and other (Sedated on the vent) Nutriti onal Appearance: Edematous Eyes: Sclerae: sclerae normal EOM: EOMs intact bilaterally Neck: Neck: Yes no lymphadenopathy, Yes trachea midline and Yes supple Resp: Auscultation: crackles (Bibasilar) Cardio: Rate: regular rate Rhythm: abnormal rhythm irregularly irregular Heart sounds: no gallops, no murmurs and no rubs GI: Palpation (GI): Soft to palpation and Other GI palpation findings present ( Nontender) Auscultation: normal bowel sounds Extrem: General: No clubbing, No cyanosis and Yes edema (2+ bilateral) Objective Data Labs 04/17/22 05:08 04/17/22 05:08 Labs: Laboratory Results - last 24 hr 04/16/22 04/16/22 04/16/22 12:01 13:30 18:14 WBC RBC Hgb Hct MCV MCH MCHC RDW Plt Count MPV Immature Gran % (Auto) Neut % (Auto) Lymph % (Auto) [place] % (Auto) Eos % (Auto) Baso % (Auto) Lymph # (Auto) [place] # (Auto) Eos # (Auto) Baso # (Auto) Abs Immat Gran (auto) Absolute Neuts (auto) Absolute Nucleated RBC Nucleated RBC % (auto) O2 Saturation 92.0 ABG pH at Pt Temp 7.31 L ABG pCO2 at Pt Temp 63 H* ABG pO2 at Pt Temp 77 L ABG HCO3 32 H ABG Base Excess (Actual) 4.9 VBG pH VBG pCO2 VBG pO2 VBG HCO3 VBG O2 Saturation VBG Base Excess Sodium 168 H* Potassium 4.7 D Chloride 130 H Carbon Dioxide 25 Anion Gap 18 BUN 97 H Creatinine 2.25 H Estim Creat Clear Calc 41.9 Estimated GFR 29 POC Glucose 260 H Random Glucose 234 H Calcium 9.1 Phosphorus Magnesium Albumin 04/16/22 04/16/22 04/16/22 18:34 23:42 23:44 WBC RBC Hgb Hct MCV MCH MCHC RDW Plt Count MPV Immature Gran % (Auto) Neut % (Auto) Lymph % (Auto) [place] % (Auto) Eos % (Auto) Baso % (Auto) Lymph # (Auto) [place] # (Auto) Eos # (Auto) Baso # (Auto) Abs Immat Gran (auto) Absolute Neuts (auto) Absolute Nucleated RBC Nucleated RBC % (auto) O2 Saturation ABG pH at Pt Temp ABG pCO2 at Pt Temp ABG pO2 at Pt Temp ABG HCO3 ABG Base Excess (Actual) VBG pH 7.43 VBG pCO2 47 VBG pO2 39 VBG HCO3 32 H VBG O2 Saturation 60.0 VBG Base Excess 6.9 Sodium Potassium Chloride Carbon Dioxide Anion Gap BUN Creatinine Estim Creat Clear Calc Estimated GFR POC Glucose 211 H 151 H Random Glucose Calcium Phosphorus Magnesium Albumin 04/17/22 04/17/22 04/17/22 05:08 05:08 05:18 WBC 14.6 H RBC 4.31 L Hgb 10.8 L Hct 34.9 L MCV 81.0 MCH 25.1 L MCHC 30.9 L RDW 19.7 H Plt Count 237 D MPV 12.4 Immature Gran % (Auto) 0.5 H Neut % (Auto) 85.9 H Lymph % (Auto) 10.9 L [place] % (Auto) 2.0 Eos % (Auto) 0.3 Baso % (Auto) 0.4 Lymph # (Auto) 1.6 [place] # (Auto) 0.3 Eos # (Auto) 0.1 Baso # (Auto) 0.1 Abs Immat Gran (auto) 0.08 H Absolute Neuts (auto) 12.6 H Absolute Nucleated RBC 0.040 H Nucleated RBC % (auto) 0.3 H O2 Saturation ABG pH at Pt Temp ABG pCO2 at Pt Temp ABG pO2 at Pt Temp ABG HCO3 ABG Base Excess (Actual) VBG pH 7.45 H VBG pCO2 40 VBG pO2 42 VBG HCO3 28 H VBG O2 Saturation 64.0 VBG Base Excess 4.6 Sodium 166 H* Potassium 4.0 Chloride 124 H Carbon Dioxide 24 Anion Gap 22 H BUN 106 H Creatinine 2.53 H Estim Creat Clear Calc 37.0 Estimated GFR 26 POC Glucose Random Glucose 273 H Calcium 8.6 Phosphorus 4.4 Magnesium 2.5 Albumin 2.9 L 04/17/22 05:40 WBC RBC Hgb Hct MCV MCH MCHC RDW Plt Count MPV Immature Gran % (Auto) Neut % (Auto) Lymph % (Auto) [place] % (Auto) Eos % (Auto) Baso % (Auto) Lymph # (Auto) [place] # (Auto) Eos # (Auto) Baso # (Auto) Abs Immat Gran (auto) Absolute Neuts (auto) Absolute Nucleated RBC Nucleated RBC % (auto) O2 Saturation ABG pH at Pt Temp ABG pCO2 at Pt Temp ABG pO2 at Pt Temp ABG HCO3 ABG Base Excess (Actual) VBG pH VBG pCO2 VBG pO2 VBG HCO3 VBG O2 Saturation VBG Base Excess Sodium Potassium Chloride Carbon Dioxide Anion Gap BUN Creatinine Estim Creat Clear Calc Estimated GFR POC Glucose 224 H Random Glucose Calcium Phosphorus Magnesium Albumin Microbiology Microbiology Results: Microbiology 04/14/22 09:17 Blood - Venous Blood Culture - Preliminary No growth after 48 hours. 04/14/22 09:17 Blood - Venous Blood Culture - Preliminary No growth after 48 hours. 04/07/22 12:52 Blood - Venous Blood Culture - Final Group G streptococcus 04/07/22 11:40 Blood - Venous Blood Culture - Final Group G streptococcus 04/07/22 Unknown Urine clean catch - Urine goodwin top Urine Culture - Final No growth. Progress Note: A&P Assessment and plan (1) Cholestasis: Status: Acute (2) Streptococcal bacteremia: Status: Acute (3) Hypernatremia: Status: Acute (4) Metabolic encephalopathy: Status: Acute (5) Acute renal failure: Status: Acute (6) Atrial fibrillation with RVR: Status: Acute (7) COPD (chronic obstructive pulmonary disease): Status: Acute (8) Controlled diabetes mellitus with diabetic polyneuropathy: Status: Acute (9) Acute respiratory failure with hypoxia: Status: Acute Plan Assessment: 66-year-old gentleman admitted after mechanical fall with prolonged inability resulting rhabdomyolysis with acute kidney injury, also underlying cellulitis with streptococcal bacteremia diastolic heart failure exacerbation, and AFib with RVR. Plan: Neuro: subacute metabolic encephalopathy, waxing and waning. Failed swallow evaluation, NG tube placed. Cardiac: Acute on chronic diastolic congestive heart failure and AFib with RVR. Continue rate control with digoxin, Cardizem, and metoprolol. Diuresis held secondary to hypernatremia. Pulmonary: Acute hypoxic respiratory failure secondary to exacerbation of underlying congestive heart failure, initially improving with diuresis. Now with development of aspiration of oral secretions with further hypoxia requiring intubation and ventilatory support. Continue to titrate off ventilatory as tolerated. Underlying EKATERINA on nocturnal CPAP 8 cm. Renal: Acute kidney injury secondary to rhabdomyolysis, improving. Non oliguric. Continue to monitor renal indices and urine output. Hypernatremia secondary to intravascular volume depletion and fluid shift into the tissue, continue with free wate, improving.. Endo: No acute issues. Underlying diabetes mellitus. GI: Hyperbilirubinemia, appears to be cholestatic, improving. Continue to monitor. ID: Group G streptococcal bacteremia, continue on ceftriaxone for total 14 days of therapy. Remains febrile. Repeat blood cultures with no growth to date. Heme/Onc: No acute issues. Psych: No acute issues. Miscellaneous: No acute issues. Prophylaxis: Heparin, ppi Diet: tube feeds Critical care time: 60 minutes Quality Stroke Does the patient have a stroke diagnosis?: No VTE Prior VTE?: No VTE Risk Level:: Medical - moderate - high VTE Device Contraindication: N/A - Device Ordered VTE Drug Contraindication: Treatment Not Tolerated
[2022-04-17 12:03] LABS: Glucose, Whole Blood 267 mg/dL (60-115)
--- NOTE | 2022-04-17 14:03 | MHC.CM.PN ---
Pt required intubation d/t inability to manage secretions and respiratory distress. Pt has a HCP on file who assisted with care decisions w/. Original d/c plan was for a return to home however, his prolonged stay and resulting deconditioning will in all liklihood necessitate STR placement. Referrals placed: CM to follow.
[2022-04-17 14:14] LABS: Venous Blood Gas Refer to POC result
[2022-04-17 17:30] LABS: Glucose, Whole Blood 278 mg/dL (60-115)
[2022-04-17 18:54] LABS: Anion Gap 20 (12-20); Blood Urea Nitrogen 114 mg/dL (9-16); Calcium 8.3 mg/dL (8.4-10.2); Carbon Dioxide 23 mmol/L (22-29); Chloride 123 mmol/L (96-108); Creatinine Clr Calc Pharmacy 34.6; Estimated Glomerular Filt Rate 24; Glucose Random 335 mg/dL (60-115); Potassium 3.8 mmol/L (3.3-5.1); Sodium 162 mmol/L (135-145)
--- NOTE | 2022-04-17 19:33 | PC.NURSE ---
Assumed care at 07:00. Patient remains intubated and sedated, RASS -3, discussed sedation vacation or titration of propofol with MD, and at this time MD would prefer if serum sodium was below 160. PERRL, 4 mm. No commands followed or questions. JACKSON and withdraws to pain. Scleritic icterus and jaundice. Patient with Diminished lung sounds at bases, SpO2 stable in mid 90's. #8 ETT at 25 cm at the lip, was originally at 23 according to nursing report, and appeared to be at 23, but by afternoon appeared to be at 25 cm, and MD notified, and according to RT ETT was originally at 27 cm and was repositioned to 25 cm, and MD is ok with leaving ETT at 25 cm at this time, +LS bilaterally, SpO2 WNL. AC/VC settings Rt22;TV400;FiO2 40%; Peep 5; Te 9-10. Scant inline secretions. copious bloody scabbing oral secretions, oral care performed extensively with good effect, discussed bloody secretions and orange tinted urine with MD and ok to continue prophylactic heparin. Patient febrile with Tmax 102.7, had last had tylenol with prior nurse, discussed with MD and only to give tylenol or apply cooling pad if temp hits 103, which it did not this shift. Grossly edematous nonpitting, but +2 edema to left hand. Scattered bruising through upper and lower extremities, and extensive skin tears and abrasions, see skin/ wound assessments. Afib on monitor with frequent PVCs and occasional V-paced beats, and rate controlled 80's-109 , on diltiazem, metoprolol, and diltiazem. Levophed gtt continues, weaned down from 0.1 to 0.06 with good effect. Propofol continued at 30 per MD. Keofeed tube to left nare. TF changed to promote per orders, max 45 cc/hour well tolerated; H2O 300 cc Q4 hours well tolerated, and serum sodium dropped from 166 to 162. Urine is malodorous but patient had negtive urine culture, continues with pro catheter for fluid management. POCs in upper 200's.
[2022-04-17] MEDS: propofoL 1,000 MG/100 ML VIAL 31.2 MG IVCONT ×2 (20:40→23:51)
[2022-04-17] MEDS: Norepinephrine Bitartrate/D5W 8 MG/250 ML PLAST..BAG 14.63 MG IVCONT (20:41)
[2022-04-17] MEDS: fentaNYL citrate/PF 100 MCG/2 ML VIAL 50 MCG IVPUSH (20:44)
[2022-04-18] VITALS (42 sets, daily range): BP systolic 84–146; BP diastolic 37–73; PULSE 64–116; RESP 21–30; TEMP 32.1–38.6; O2SAT 93–99; BMI 43.2
[2022-04-18 00:08] LABS: Glucose, Whole Blood 266 mg/dL (60-115)
[2022-04-18] MEDS: Insulin Lispro 100 UNIT/ML 3 ML VIAL SUBCUT ×5 (00:11→23:50)
[2022-04-18] MEDS: propofoL 1,000 MG/100 ML VIAL 31.2 MG IVCONT ×7 (03:06→23:18)
[2022-04-18] MEDS: Heparin Sodium,Porcine 5,000 UNIT/ML VIAL 5000 UNIT SUBCUT ×3 (03:09→18:15)
[2022-04-18 05:22] LABS: VBG Base Excess 1.8 mmol/L; VBG HCO3 26 mmol/L (22-26); VBG pCO2 40 mmHg; VBG pH 7.41 (7.32-7.43); VBG pO2 48 mmHg
[2022-04-18 05:23] LABS: Venous Blood Gas Refer to POC result
[2022-04-18 05:45] LABS: MANUAL DIFF FLAG NO
[2022-04-18 05:50] LABS: Basophils Absolute Auto 0.1 X10*3/uL (0.0-0.2); Basophils Percent Auto 0.5 % (0-2); Eosinophils Absolute Auto 0.1 X10*3/uL (0.0-0.4); Eosinophils Percent Auto 0.9 % (0-4); Hematocrit 34.2 % (42.0-52.0); Hemoglobin 10.5 g/dl (14.0-18.0); Imm Gran Abs Auto 0.08 X10*3/uL (0.00-0.03); Imm Gran Pct Auto 0.7 % (0.0-0.4); Lymphocytes Absolute Auto 1.5 X10*3/uL (1.2-4.9); Mean Corpuscular HGB Conc 30.7 g/dl (31.0-36.0); Mean Corpuscular Hemoglobin 24.8 pg (27.0-33.0); Mean Corpuscular Volume 80.9 fL (80.0-98.0); Mean Platelet Volume 12.8 fL (9.4-12.4); Monocytes Absolute Auto 0.2 X10*3/uL (0.1-1.2); Monocytes Percent Auto 1.6 % (2-11); Neutrophils Absolute Auto 10.3 x10*3/uL (2.0-8.3); Neutrophils Percent Auto 84.3 % (45-73); Platelet Count 226 X10*3/uL (160-400); Red Blood Count 4.23 X10*6/uL (4.60-5.80); Red Cell Distribution Width 19.1 % (11.0-16.0); White Blood Count 12.2 X10*3/uL (4.8-10.8)
[2022-04-18 05:59] LABS: Glucose, Whole Blood 332 mg/dL (60-115)
[2022-04-18 06:04] LABS: Albumin Level 2.5 g/dL (3.5-5.0); Anion Gap 18 (12-20); Blood Urea Nitrogen 113 mg/dL (9-16); Calcium 8.3 mg/dL (8.4-10.2); Carbon Dioxide 26 mmol/L (22-29); Chloride 118 mmol/L (96-108); Creatinine Clr Calc Pharmacy 34.1; Estimated Glomerular Filt Rate 23; Magnesium 2.5 mg/dL (1.6-2.6); Phosphorus 3.8 mg/dL (2.7-4.5); Potassium 3.6 mmol/L (3.3-5.1); Sodium 158 mmol/L (135-145)
[2022-04-18 06:05] LABS: Glucose Random 351 mg/dL (60-115)
[2022-04-18] MEDS: Levothyroxine Sodium 100 MCG/5 ML VIAL 37.5 MCG IVPUSH (06:23)
[2022-04-18] MEDS: 0.9 % Sodium Chloride Flush 3 ML SYRINGE IVFLUSH ×3 (07:31→23:50)
[2022-04-18] MEDS: Famotidine/PF 20 MG/2 ML VIAL IVPUSH (07:31)
[2022-04-18] MEDS: Digoxin 0.5 MG/2 ML AMPUL 0.125 MG IVPUSH (07:31)
[2022-04-18] MEDS: Bumetanide 1 MG/4 ML VIAL IVPUSH (07:31)
[2022-04-18] MEDS: cefTRIAXone sodium 1 GM in 0.9 % Sodium Chloride 50 ML IV (07:59)
[2022-04-18] MEDS: Insulin Glargine,Hum.rec.anlog 100 UNIT/ML 10 ML VIAL 10 UNIT SUBCUT (08:08)
[2022-04-18] MEDS: dilTIAZem HCL 60 MG TABLET PO ×4 (08:09→19:48)
[2022-04-18] MEDS: Metoprolol Tartrate 50 MG TABLET PO ×3 (08:09→17:12)
[2022-04-18] MEDS: Chlorhexidine Gluc Oral Rinse 15 ML MOUTHWASH BUCCAL ×3 (08:24→19:48)
--- NOTE | 2022-04-18 09:45 | PM.CCPN ---
Subjective Subjective Date of Service: 04/18/22 Interval History: 66-year-old gentleman with underlying history of AFib status post permanent pacemaker, diastolic heart failure, diabetes mellitus, obesity, EKATERINA, admitted on 04/07/2022 with history of a mechanical fall with prolonged immobility. On ER evaluation rhabdomyolysis, acute kidney injury, cellulitis of lower extremities with streptococcal bacteremia, and acute hypoxic respiratory failure requiring BiPAP support. Patient was treated with IV fluids, antibiotics, and rate control medications with significant improvement. However, he remains somewhat encephalopathic and has been failing his swallow evaluations so NG tube was placed and he was started on tube feeds and free water flushes. Patient also noted to have hyperbilirubinemia that appears to be cholestatic and is slowly improving. No events overnight. Hypernatremia is improving. Arousable and follows commands with sedation vacation. Critical Care Time (minutes): 45 Physical Exam Vital Signs: Vital Signs: Last Vital Signs Temp 100.0 F 04/18/22 07:56 Pulse 85 04/18/22 09:15 Resp 23 H 04/18/22 09:15 BP 125/65 04/18/22 09:15 Pulse Ox 95 04/18/22 09:00 O2 Del Method 04/18/22 09:00 O2 Flow Rate 5 04/16/22 13:00 FiO2 30 04/18/22 09:00 Oxygen Flow Rate 9 04/07/22 13:10 BMI result Body Mass Index 43.2 Const: General: no acute distress and other (Sedated on the vent) Nutritional Appearance: obese and Edematous Eyes: Sclerae: sclerae normal EOM: EOMs intact bilaterally Neck: Neck: Yes no lymphadenopathy, Yes trachea midline and Yes supple Resp: Auscultation: clear to auscultation bilaterally Cardio: Rate: regular rate Rhythm: abnormal rhythm regularly irregular Heart sounds: no gallops, no murmurs and no rubs GI: Palpation (GI): Soft to palpation and Other GI palpation findings present ( Nontender) Auscultation: normal bowel sounds Extrem: General: No clubbing, No cyanosis and Yes edema (2+ bilateral) Objective Data Labs 04/18/22 05:10 04/18/22 05:10 Labs: Laboratory Results - last 24 hr 04/17/22 04/17/22 04/17/22 12:00 17:26 17:55 WBC RBC Hgb Hct MCV MCH MCHC RDW Plt Count MPV Immature Gran % (Auto) Neut % (Auto) Lymph % (Auto) [place] % (Auto) Eos % (Auto) Baso % (Auto) Lymph # (Auto) [place] # (Auto) Eos # (Auto) Baso # (Auto) Abs Immat Gran (auto) Absolute Neuts (auto) Absolute Nucleated RBC Nucleated RBC % (auto) VBG pH VBG pCO2 VBG pO2 VBG HCO3 VBG O2 Saturation VBG Base Excess Sodium 162 H* Potassium 3.8 Chloride 123 H Carbon Dioxide 23 Anion Gap 20 BUN 114 H Creatinine 2.71 H Estim Creat Clear Calc 34.6 Estimated GFR 24 POC Glucose 267 H 278 H Random Glucose 335 H Calcium 8.3 L Phosphorus Magnesium Albumin 04/18/22 04/18/22 04/18/22 00:02 05:10 05:10 WBC 12.2 H RBC 4.23 L Hgb 10.5 L Hct 34.2 L MCV 80.9 MCH 24.8 L MCHC 30.7 L RDW 19.1 H Plt Count 226 MPV 12.8 H Immature Gran % (Auto) 0.7 H Neut % (Auto) 84.3 H Lymph % (Auto) 12.0 L [place] % (Auto) 1.6 L Eos % (Auto) 0.9 Baso % (Auto) 0.5 Lymph # (Auto) 1.5 [place] # (Auto) 0.2 Eos # (Auto) 0.1 Baso # (Auto) 0.1 Abs Immat Gran (auto) 0.08 H Absolute Neuts (auto) 10.3 H Absolute Nucleated RBC 0.000 Nucleated RBC % (auto) 0.0 VBG pH VBG pCO2 VBG pO2 VBG HCO3 VBG O2 Saturation VBG Base Excess Sodium 158 H Potassium 3.6 Chloride 118 H Carbon Dioxide 26 Anion Gap 18 BUN 113 H Creatinine 2.75 H Estim Creat Clear Calc 34.1 Estimated GFR 23 POC Glucose 266 H Random Glucose 351 H* Calcium 8.3 L Phosphorus 3.8 Magnesium 2.5 Albumin 2.5 L 04/18/22 04/18/22 05:15 05:55 WBC RBC Hgb Hct MCV MCH MCHC RDW Plt Count MPV Immature Gran % (Auto) Neut % (Auto) Lymph % (Auto) [place] % (Auto) Eos % (Auto) Baso % (Auto) Lymph # (Auto) [place] # (Auto) Eos # (Auto) Baso # (Auto) Abs Immat Gran (auto) Absolute Neuts (auto) Absolute Nucleated RBC Nucleated RBC % (auto) VBG pH 7.41 VBG pCO2 40 VBG pO2 48 VBG HCO3 26 VBG O2 Saturation 68.0 VBG Base Excess 1.8 Sodium Potassium Chloride Carbon Dioxide Anion Gap BUN Creatinine Estim Creat Clear Calc Estimated GFR POC Glucose 332 H Random Glucose Calcium Phosphorus Magnesium Albumin Microbiology Microbiology Results: Microbiology 04/14/22 09:17 Blood - Venous Blood Culture - Preliminary No growth after 48 hours. 04/14/22 09:17 Blood - Venous Blood Culture - Preliminary No growth after 48 hours. 04/07/22 12:52 Blood - Venous Blood Culture - Final Group G streptococcus 04/07/22 11:40 Blood - Venous Blood Culture - Final Group G streptococcus 04/07/22 Unknown Urine clean catch - Urine goodwin top Urine Culture - Final No growth. Progress Note: A&P Assessment and plan (1) Acute respiratory failure with hypoxia: Status: Acute (2) Cholestasis: Status: Acute (3) Streptococcal bacteremia: Status: Acute (4) Hypernatremia: Status: Acute (5) Metabolic encephalopathy: Status: Acute (6) Acute renal failure: Status: Acute (7) COPD (chronic obstructive pulmonary disease): Status: Acute (8) Chronic heart failure with preserved ejection fraction (HFpEF): Status: Acute (9) Controlled diabetes mellitus with diabetic polyneuropathy: Status: Acute (10) Atrial fibrillation: Status: Acute Plan Assessment: 66-year-old gentleman admitted after mechanical fall with prolonged inability resulting rhabdomyolysis with acute kidney injury, also underlying cellulitis with streptococcal bacteremia diastolic heart failure exacerbation, and AFib with RVR. Plan: Neuro: subacute metabolic encephalopathy, waxing and waning. Failed swallow evaluation, NG tube placed. Cardiac: Acute on chronic diastolic congestive heart failure and AFib with RVR. Continue rate control with digoxin, Cardizem, and metoprolol. Restarted on diuresis with improving hypernatremia. Pulmonary: Acute hypoxic respiratory failure secondary to exacerbation of underlying congestive heart failure, initially improving with diuresis. Now with development of aspiration of oral secretions with further hypoxia requiring intubation and ventilatory support. Continue to titrate off ventilatory as tolerated. Underlying EKATERINA on nocturnal CPAP 8 cm. Renal: Acute kidney injury secondary to rhabdomyolysis and acute exacerbation of underlying congestive heart failure. Non oliguric. Continue to monitor renal indices and urine output. Hypernatremia secondary to intravascular volume depletion and fluid shift into the tissue, continue with free water, improving. Endo: No acute issues. Underlying diabetes mellitus. GI: Hyperbilirubinemia, appears to be cholestatic, improving. Continue to monitor. ID: Group G streptococcal bacteremia, continue on ceftriaxone for total 14 days of therapy. Repeat blood cultures with no growth to date. Heme/Onc: No acute issues. Psych: No acute issues. Miscellaneous: No acute issues. Prophylaxis: Heparin, famotidine Diet: tube feeds Critical care time: 45 minutes Quality Stroke Does the patient have a stroke diagnosis?: No VTE Prior VTE?: No VTE Risk Level:: Medical - moderate - high VTE Device Contraindication: N/A - Device Ordered VTE Drug Contraindication: Treatment Not Tolerated
[2022-04-18] MEDS: propofoL 1,000 MG/100 ML VIAL 23.4 MG IVCONT (09:54)
[2022-04-18] MEDS: Norepinephrine Bitartrate/D5W 8 MG/250 ML PLAST..BAG 9.75 MG IVCONT (09:55)
[2022-04-18 11:23] LABS: Glucose, Whole Blood 302 mg/dL (60-115)
[2022-04-18] MEDS: fentaNYL citrate/PF 100 MCG/2 ML VIAL 50 MCG IVPUSH (12:09)
[2022-04-18 17:40] LABS: Glucose, Whole Blood 342 mg/dL (60-115)
[2022-04-18 18:39] LABS: Anion Gap 19 (12-20); Blood Urea Nitrogen 111 mg/dL (9-16); Carbon Dioxide 22 mmol/L (22-29); Chloride 117 mmol/L (96-108); Creatinine Clr Calc Pharmacy 38.7; Estimated Glomerular Filt Rate 27; Glucose Random 430 mg/dL (60-115); Potassium 3.5 mmol/L (3.3-5.1); Sodium 154 mmol/L (135-145)
[2022-04-18 23:43] LABS: Glucose, Whole Blood 344 mg/dL (60-115)
[2022-04-19] VITALS (24 sets, daily range): BP systolic 97–135; BP diastolic 49–65; PULSE 71–94; RESP 0–33; TEMP 32.5–38.9; O2SAT 95; BMI 43.9
[2022-04-19] MEDS: propofoL 1,000 MG/100 ML VIAL 31.2 MG IVCONT ×3 (02:10→08:15)
[2022-04-19] MEDS: Norepinephrine Bitartrate/D5W 8 MG/250 ML PLAST..BAG 14.63 MG IVCONT (02:11)
[2022-04-19] MEDS: Heparin Sodium,Porcine 5,000 UNIT/ML VIAL 5000 UNIT SUBCUT ×2 (05:01→09:15)
[2022-04-19 05:21] LABS: VBG Base Excess 0.6 mmol/L; VBG HCO3 24 mmol/L (22-26); VBG pCO2 36 mmHg; VBG pH 7.43 (7.32-7.43); VBG pO2 44 mmHg
[2022-04-19 05:48] LABS: Glucose, Whole Blood 335 mg/dL (60-115)
[2022-04-19 05:53] LABS: Basophils Absolute Auto 0.1 X10*3/uL (0.0-0.2); Basophils Percent Auto 0.5 % (0-2); Hemoglobin 10.3 g/dl (14.0-18.0); Imm Gran Abs Auto 0.04 X10*3/uL (0.00-0.03); Imm Gran Pct Auto 0.4 % (0.0-0.4); PLT ABN DIST 1; SCAN SMEAR FLAG 1
[2022-04-19 05:55] LABS: Eosinophils Absolute Auto 0.2 X10*3/uL (0.0-0.4); Eosinophils Percent Auto 1.6 % (0-4); Hematocrit 32.8 % (42.0-52.0); Lymphocytes Absolute Auto 1.3 X10*3/uL (1.2-4.9); Lymphocytes Percent Auto 13.2 % (20-40); Mean Corpuscular HGB Conc 31.4 g/dl (31.0-36.0); Mean Corpuscular Hemoglobin 25.2 pg (27.0-33.0); Mean Corpuscular Volume 80.4 fL (80.0-98.0); Monocytes Absolute Auto 0.3 X10*3/uL (0.1-1.2); Monocytes Percent Auto 2.6 % (2-11); NRBC Pct Auto 0.3 /100WBC (0.0-0.2); Neutrophils Absolute Auto 7.8 x10*3/uL (2.0-8.3); Neutrophils Percent Auto 81.7 % (45-73); Platelet Count 184 X10*3/uL (160-400); Red Blood Count 4.08 X10*6/uL (4.60-5.80); Red Cell Distribution Width 19.2 % (11.0-16.0); White Blood Count 9.5 X10*3/uL (4.8-10.8)
[2022-04-19 05:57] LABS: MANUAL DIFF FLAG NO
[2022-04-19] MEDS: Levothyroxine Sodium 100 MCG/5 ML VIAL 37.5 MCG IVPUSH (05:58)
[2022-04-19] MEDS: Insulin Lispro 100 UNIT/ML 3 ML VIAL SUBCUT (05:58)
[2022-04-19 06:15] LABS: Alanine Aminotransferase 43 U/L (0-40); Albumin Level 2.3 g/dL (3.5-5.0); Alkaline Phosphatase 79 U/L (39-117); Anion Gap 20 (12-20); Aspartate Amino Transferase 71 U/L (5-37); Bilirubin Total 4.9 mg/dL (0.0-1.0); Blood Urea Nitrogen 109 mg/dL (9-16); Calcium 8.2 mg/dL (8.4-10.2); Carbon Dioxide 21 mmol/L (22-29); Chloride 115 mmol/L (96-108); Creatinine Clr Calc Pharmacy 37.2; Estimated Glomerular Filt Rate 25; Glucose Random 434 mg/dL (60-115); Magnesium 2.3 mg/dL (1.6-2.6); Phosphorus 3.9 mg/dL (2.7-4.5); Potassium 3.7 mmol/L (3.3-5.1); Sodium 152 mmol/L (135-145); Total Protein 5.8 g/dL (6.5-8.0)
[2022-04-19 06:37] LABS: Venous Blood Gas Refer to POC result
[2022-04-19] MEDS: cefTRIAXone sodium 1 GM in 0.9 % Sodium Chloride 50 ML IV (08:35)
[2022-04-19] MEDS: 0.9 % Sodium Chloride Flush 3 ML SYRINGE IVFLUSH (08:35)
[2022-04-19] MEDS: Digoxin 0.5 MG/2 ML AMPUL 0.125 MG IVPUSH (08:40)
[2022-04-19] MEDS: Famotidine/PF 20 MG/2 ML VIAL IVPUSH (08:41)
[2022-04-19] MEDS: Insulin Glargine,Hum.rec.anlog 100 UNIT/ML 10 ML VIAL 30 UNIT SUBCUT (09:14)
[2022-04-19] MEDS: Bumetanide 1 MG/4 ML VIAL IVPUSH (09:14)
[2022-04-19] MEDS: Chlorhexidine Gluc Oral Rinse 15 ML MOUTHWASH BUCCAL (09:14)
--- NOTE | 2022-04-19 09:35 | PM.CCN ---
Critical Care Event Note Summary Date of Service: 04/19/22 Code activated: No Narrative: Question about clinical picture and prognosis held with patient's sister/healthcare proxy who states that patient would not 1 further treatment in this situation. Decision has been reached to switch goals of care to comfort. Code status changed. Critical Care Time (minutes): 0
[2022-04-19] MEDS: fentaNYL citrate/PF 100 MCG/2 ML VIAL 50 MCG IVPUSH (09:48)
[2022-04-19] MEDS: fentaNYL citrate/NS 1,000 MCG/100 ML PLAST..BAG 2.5 MCG IVCONT (10:27)
[2022-04-19] MEDS: fentaNYL citrate/PF 100 MCG/2 ML VIAL IVPUSH ×2 (10:42→11:42)
--- NOTE | 2022-04-19 10:50 | PC.RT ---
Pt extubated as comfort measures only per order. Orally sxn for large thick pink secreations post pt was placed on 28% cool mist for comfort per MD. Family at bedside.
--- NOTE | 2022-04-19 12:03 | PM.CCPN ---
Subjective Subjective Date of Service: 04/19/22 Interval History: 66-year-old gentleman with underlying history of AFib status post permanent pacemaker, diastolic heart failure, diabetes mellitus, obesity, EKATERINA, admitted on 04/07/2022 with history of a mechanical fall with prolonged immobility. On ER evaluation rhabdomyolysis, acute kidney injury, cellulitis of lower extremities with streptococcal bacteremia, and acute hypoxic respiratory failure requiring BiPAP support. Patient was treated with IV fluids, antibiotics, and rate control medications with significant improvement. However, he remains somewhat encephalopathic and has been failing his swallow evaluations so NG tube was placed and he was started on tube feeds and free water flushes. Patient also noted to have hyperbilirubinemia that appears to be cholestatic and is slowly improving. Meeting was held with patient's sister/healthcare proxy and overal clinical course was discussed. Healthcare proxy from the patient remote on to receive this support that his receiving at this time decision was made to switch goals of care to comfort. Code status changed to comfort measures only. Patient extubated and started on as needed fentanyl / Versed for comfort. Critical Care Time (minutes): 45 Physical Exam Vital Signs: Vital Signs: Last Vital Signs Temp 102.0 F H 04/19/22 09:00 Pulse 94 04/19/22 10:41 Resp 32 H 04/19/22 11:42 BP 127/63 04/19/22 10:41 Pulse Ox 95 04/19/22 09:00 O2 Del Method 04/19/22 09:00 O2 Flow Rate 5 04/16/22 13:00 FiO2 30 04/19/22 09:00 Oxygen Flow Rate 9 04/07/22 13:10 BMI result Body Mass Index 43.9 Const: General: no acute distress ( comfortable) Neck: Neck: Yes no lymphadenopathy, Yes trachea midline and Yes supple Resp: Effort & Inspection: no respiratory distress Cardio: Rate: regular rate Rhythm: abnormal rhythm irregularly irregular GI: Palpation (GI): Soft to palpation Objective Data Labs 04/19/22 05:05 04/19/22 05:05 Labs: Laboratory Results - last 24 hr 04/18/22 04/18/22 04/18/22 17:37 18:07 23:39 WBC RBC Hgb Hct MCV MCH MCHC RDW Plt Count MPV Immature Gran % (Auto) Neut % (Auto) Lymph % (Auto) [place] % (Auto) Eos % (Auto) Baso % (Auto) Lymph # (Auto) [place] # (Auto) Eos # (Auto) Baso # (Auto) Abs Immat Gran (auto) Absolute Neuts (auto) Absolute Nucleated RBC Nucleated RBC % (auto) VBG pH VBG pCO2 VBG pO2 VBG HCO3 VBG O2 Saturation VBG Base Excess Sodium 154 H Potassium 3.5 Chloride 117 H Carbon Dioxide 22 Anion Gap 19 BUN 111 H Creatinine 2.42 H Estim Creat Clear Calc 38.7 Estimated GFR 27 POC Glucose 342 H 344 H Random Glucose 430 H* Calcium 8.0 L Phosphorus Magnesium Total Bilirubin AST ALT Alkaline Phosphatase Total Protein Albumin 04/19/22 04/19/22 04/19/22 05:05 05:05 05:14 WBC 9.5 RBC 4.08 L Hgb 10.3 L Hct 32.8 L MCV 80.4 MCH 25.2 L MCHC 31.4 RDW 19.2 H Plt Count 184 MPV 184.0 H Immature Gran % (Auto) 0.4 Neut % (Auto) 81.7 H Lymph % (Auto) 13.2 L [place] % (Auto) 2.6 Eos % (Auto) 1.6 Baso % (Auto) 0.5 Lymph # (Auto) 1.3 [place] # (Auto) 0.3 Eos # (Auto) 0.2 Baso # (Auto) 0.1 Abs Immat Gran (auto) 0.04 H Absolute Neuts (auto) 7.8 Absolute Nucleated RBC 0.030 H Nucleated RBC % (auto) 0.3 H VBG pH 7.43 VBG pCO2 36 VBG pO2 44 VBG HCO3 24 VBG O2 Saturation 66.0 VBG Base Excess 0.6 Sodium 152 H Potassium 3.7 Chloride 115 H Carbon Dioxide 21 L Anion Gap 20 BUN 109 H Creatinine 2.54 H Estim Creat Clear Calc 37.2 Estimated GFR 25 POC Glucose Random Glucose 434 H* Calcium 8.2 L Phosphorus 3.9 Magnesium 2.3 Total Bilirubin 4.9 H AST 71 H ALT 43 H Alkaline Phosphatase 79 Total Protein 5.8 L Albumin 2.3 L 04/19/22 05:44 WBC RBC Hgb Hct MCV MCH MCHC RDW Plt Count MPV Immature Gran % (Auto) Neut % (Auto) Lymph % (Auto) [place] % (Auto) Eos % (Auto) Baso % (Auto) Lymph # (Auto) [place] # (Auto) Eos # (Auto) Baso # (Auto) Abs Immat Gran (auto) Absolute Neuts (auto) Absolute Nucleated RBC Nucleated RBC % (auto) VBG pH VBG pCO2 VBG pO2 VBG HCO3 VBG O2 Saturation VBG Base Excess Sodium Potassium Chloride Carbon Dioxide Anion Gap BUN Creatinine Estim Creat Clear Calc Estimated GFR POC Glucose 335 H Random Glucose Calcium Phosphorus Magnesium Total Bilirubin AST ALT Alkaline Phosphatase Total Protein Albumin Microbiology Microbiology Results: Microbiology 04/14/22 09:17 Blood - Venous Blood Culture - Final No growth after 5 days. 04/14/22 09:17 Blood - Venous Blood Culture - Final No growth after 5 days. 04/07/22 12:52 Blood - Venous Blood Culture - Final Group G streptococcus 04/07/22 11:40 Blood - Venous Blood Culture - Final Group G streptococcus 04/07/22 Unknown Urine clean catch - Urine goodwin top Urine Culture - Final No growth. Progress Note: A&P Assessment and plan (1) Acute respiratory failure with hypoxia: Status: Acute (2) Cholestasis: Status: Acute (3) Streptococcal bacteremia: Status: Acute (4) Hypernatremia: Status: Acute (5) Metabolic encephalopathy: Status: Acute (6) Acute renal failure: Status: Acute (7) Atrial fibrillation with RVR: Status: Acute (8) COPD (chronic obstructive pulmonary disease): Status: Acute (9) Diabetic foot: Status: Acute (10) Controlled diabetes mellitus with diabetic polyneuropathy: Status: Acute Plan Assessment: 66-year-old gentleman admitted after mechanical fall with prolonged inability resulting rhabdomyolysis with acute kidney injury, also underlying cellulitis with streptococcal bacteremia diastolic heart failure exacerbation, hypernatremia, pulmonary aspiration, and AFib with RVR. Plan: Goals of care discussed with healthcare proxy who stated patient would not want to have this level of support and goals of care have been changed to comfort. Code status changed. Patient started on as needed fentanyl and Versed for comfort and extubated. Quality Stroke Does the patient have a stroke diagnosis?: No VTE Prior VTE?: No VTE Risk Level:: Medical - moderate - high VTE Device Contraindication: N/A - Device Ordered VTE Drug Contraindication: Treatment Not Tolerated
--- NOTE | 2022-04-19 16:56 | PM.EVENT ---
Event Note Date of Service: 04/19/22 Event Note: called to see patient, found to be apneic, no pulse. time of 16:50 Time Spent With Patient Time: Total time managing care of this patient today ____ minutes.
--- NOTE | 2022-04-19 17:15 | PM.DDS ---
Discharge Sum: Prov Provider Primary care physician: Macario Nicole PA-C Discharge Sum: Diag Contributing Factors (1) Acute respiratory failure with hypoxia: (2) Cholestasis: (3) Streptococcal bacteremia: (4) Hypernatremia: (5) Metabolic encephalopathy: (6) Acute renal failure: (7) Atrial fibrillation with RVR: (8) COPD (chronic obstructive pulmonary disease): (9) Controlled diabetes mellitus with diabetic polyneuropathy: (10) Diabetic foot: Discharge Sum: Summary Date and Time Date of admission: 04/07/22 14:05 Date of : 04/19/22 Time of : 16:50 Summary Details: 66-year-old gentleman with underlying history of AFib status post permanent pacemaker, diastolic heart failure, diabetes mellitus, obesity, EKATERINA, admitted on 04/07/2022 with history of a mechanical fall with prolonged immobility. On ER evaluation rhabdomyolysis, acute kidney injury, cellulitis of lower extremities with streptococcal bacteremia, and acute hypoxic respiratory failure requiring BiPAP support. Patient was treated with IV fluids, antibiotics, and rate control medications with significant improvement. However, he remains somewhat encephalopathic and has been failing his swallow evaluations so NG tube was placed and he was started on tube feeds and free water flushes. Patient also noted to have hyperbilirubinemia that appears to be cholestatic and is slowly improving. Meeting was held with patient's sister/healthcare proxy and overal clinical course was discussed. Healthcare proxy from the patient remote on to receive this support that his receiving at this time decision was made to switch goals of care to comfort. Code status changed to comfort measures only. Patient extubated and started on as needed fentanyl / Versed for comfort. Patient passed peacefully at 16:50 on 04/19/2022 with family at the bedside. Additional Data Family: at bedside Attending physician: Arslan Bush MD
== END 2022-04-19 19:01 | disposition expired | DRG 871 ==
LOC: HO.ED 14:39 → HO.EDOVER 14:42 → HO.ICU 14:44
PROVIDERS: Nurse Practitioner Family; Registered Nurse Community Health; Admitting Provider Internal Medicine Cardiovascular Disease; Emergency Provider Emergency Medicine; PCP Physician Assistant; Visit Provider Internal Medicine Pulmonary Disease
DX: A41.9 Sepsis, unspecified organism (principal); D65 Disseminated intravascular coagulation [defibrination syndrome]; I50.33 Acute on chronic diastolic (congestive) heart failure; J96.01 Acute respiratory failure with hypoxia; R65.21 Severe sepsis with septic shock; N17.0 Acute kidney failure with tubular necrosis; G93.41 Metabolic encephalopathy; K83.1 Obstruction of bile duct; L03.116 Cellulitis of left lower limb; L03.115 Cellulitis of right lower limb; M62.82 Rhabdomyolysis; Z68.43 Body mass index [BMI] 50.0-59.9, adult; E87.0 Hyperosmolality and hypernatremia; I48.19 Other persistent atrial fibrillation; E78.5 Hyperlipidemia, unspecified; I11.0 Hypertensive heart disease with heart failure; E66.01 Morbid (severe) obesity due to excess calories; E78.2 Mixed hyperlipidemia; J41.0 Simple chronic bronchitis; F32.9 Major depressive disorder, single episode, unspecified; E11.65 Type 2 diabetes mellitus with hyperglycemia; G89.4 Chronic pain syndrome; M10.9 Gout, unspecified; E11.42 Type 2 diabetes mellitus with diabetic polyneuropathy; I44.30 Unspecified atrioventricular block; B95.4 Other streptococcus as the cause of diseases classified elsewhere; I87.323 Chronic venous hypertension (idiopathic) with inflammation of bilateral lower extremity; Z20.822 Contact with and (suspected) exposure to COVID-19; Z95.0 Presence of cardiac pacemaker; Z88.5 Allergy status to narcotic agent; Z88.8 Allergy status to other drugs, medicaments and biological substances; Z79.01 Long term (current) use of anticoagulants; Z79.84 Long term (current) use of oral hypoglycemic drugs; Z79.890 Hormone replacement therapy; Z79.899 Other long term (current) drug therapy
CPT/HCPCS: 0241U; 36415; 70450; 71045; 71250; 72125; 73700; 74176; 76705; 80048; 80053; 80076; 80143; 80202; 81001; 81003; 82009; 82040; 82077; 82550; 82803; 82947; 83605; 83690; 83735; 83880; 84100; 84145; 84439; 84443; 84484; 85007; 85025; 85027; 85384; 85610; 85652; 85730; 86140; 86850; 86900; 86901; 87040; 87086; 87147; 87186; 87205; 87635; 93005; 93306; 94002; 94003; 94640; 94660; 94799; 99285; C1758; J0295; J0610; J0696; J1160; J1170; J1643; J1940; J3010; J3370; J3430; P9047